=== PATIENT | male | born 1955 | race Caucasian/White ===

== ENCOUNTER 2020-03-13 16:17 | Inpatient (IN) | payer OTHER, MEDICARE, SELFPAY ==
[2020-03-13] VITALS (35 sets, daily range): BP systolic 71–162; BP diastolic 42–81; PULSE 83–136; RESP 20–37; TEMP 36.5; O2SAT 92–100; BMI 33.0
--- NOTE | 2020-03-13 16:51 | XR_ITS ---
WS: [id number] XR chest 1V portable [id number] REASON FOR EXAM: dyspnea/cough FINDINGS: The lung bobby are hyper aerated with decreased vascularity. The heart and mediastinal interfaces normal. No pneumonia, pleural effusion, pulmonary edema, or mass effect. The diaphragms are flattened. The hilum and apices normal. XR/XR chest 1V portable [id number] IMPRESSION: Chronic obstructive pulmonary disease.
--- NOTE | 2020-03-13 16:51 | ECG_ITS ---
Measurements Intervals [place] Rate: 111 P: 83 SC: 151 QRS: 58 QRSD: 89 T: 40 QT: 318 QTc: 434 SINUS TACHYCARDIA ABNORMAL RHYTHM ECG No previous ECG available for comparison Electronically Signed On 03-14-2020 19:57:41 CDT by Alexx Hobbs M.D. [email or web address]
--- NOTE | 2020-03-13 16:51 | CTR_ITS ---
PROCEDURE INFORMATION: Exam: CT Head Without Contrast Exam date and time: 03/13/2020 7:31 PM Age: 64 years old Clinical indication: Altered mental status/memory loss; Confusion or disorientation; Patient HX: PT was found catatonic - AMS TECHNIQUE: Imaging protocol: Computed tomography of the head without contrast. Radiation optimization: All CT scans at this facility use at least one of these dose optimization techniques: automated exposure control; mA and/or kV adjustment per patient size (includes targeted exams where dose is matched to clinical indication); or iterative reconstruction. COMPARISON: No relevant prior studies available. RADIATION DOSE METRICS: Total DLP: 1486.06 mGy-cm FINDINGS: Brain: Mild diffuse cortical volume loss. Mild hypodensities in supratentorial periventricular and subcortical white matter. No intracranial hemorrhage. Ventricles: Normal. No ventriculomegaly. Bones/joints: Unremarkable. No acute fracture. Sinuses: Visualized sinuses are unremarkable. No fluid levels. Mastoid air cells: Visualized mastoid air cells are well aerated. Soft tissues: Unremarkable. CT/CT head wo con* [id number] IMPRESSION: 1. No acute intracranial abnormality identified. 2. Mild microangiopathy. Radiation Dose CTDIVOL = (mGy): DLP = 1486.06 (mGy-cm)
[2020-03-13 17:23] LABS: ABG PCO2 22.1 mmHg (35-45); ABG PH Result 7.21 (7.35-7.45); Base Excess ABG -17.2 mmol/L (-2.0-2.0); Blood Gas Allen Test Pos; Blood Gas Sample Site Brachial, left; Blood Gas Sample Type Arterial; HCO3 ABG 8.9 mmol/L (22-26); HGB O2 Sat 98.3 % (95-100); Ionized Calcium Level - ABG 1.3 mmol/L (1.1-1.4); Methemoglobin 1.4 % (0.4-1.5); Oxygen Device NRB; Oxygen Saturation ABG 99.5; Potassium Level - ABG 7.1 mmol/L (3.5-5.0); Total Hemoglobin 10.1 g/dL (14-18)
[2020-03-13 17:35] LABS: Basophils % 0.1 %; Eosinophils % 0.1 %; Hematocrit 32.4 % (42.0-52.0); Hemoglobin 9.6 g/dL (11.7-16.6); Lymphocytes # 0.3 10^3/uL (0.8-4.8); Lymphocytes % 1.7 %; Mean Corpuscular HGB Conc 29.6 g/dL (30.0-36.0); Mean Corpuscular Hemoglobin 27.7 pg (28.0-34.0); Mean Corpuscular Volume 93.4 fL (80-94); Mean Platelet Volume 9.9 fL (7.4-10.4); Monocytes # 1.3 10^3/uL (0.2-0.9); Monocytes % 8.3 %; Neutrophils # 14.5 10^3/uL (1.8-7.7); Neutrophils % 89.4 %; Nucleated Red Blood Cells % 0 %; Platelet Count 290 10^3/cmm (130-400); Red Blood Count 3.47 10^6/uL (4.1-5.3); White Blood Count 16.2 10^3/uL (4.0-10.0)
--- NOTE | 2020-03-13 17:38 | ED_ITS ---
Documented by User: Ross Glez DO 03/15/20 16:05 HPI - Altered Mental Status General: Chief Complaint: Altered Mental Status Stated Complaint: AMS Time Seen by Provider: 03/13/20 16:50 History of Present Illness: HPI narrative: 84-year-old male brought in via EMS. The only history were able to get was that he they were called after the landlord had not seen him since March for there is a foul odor from his room if they had been called for health and welfare check on their arrival he was in a computer chair slumped over he was able to verbalize a little bit but with obviously had altered mental status. On arrival here he is following simple commands but cannot verbalize anything to me. He is incredibly dirty he has fecal matter dried on the back of his legs down his legs are a socks in place that are caked in blood fecal matter in hair these were removed by amarilis underneath the socks or bandages underlying the bandages are large numbers of maggots on both feet. He is not able to supply any history and there is no history available on his old records either in [facility] or in the old [facility] complaint: altered mental status, confusion and decreased responsiveness Onset (ago): day(s) (5) Severity: severe Consistency of symptoms: Getting Worse Review of Systems General: Reports: ROS unobtainable due to medical condition and ROS unobtainable due to mental status [facility] ED PFSH: Medical History Former smoker Hernia Nephrolithiasis Pilonidal cyst Sepsis Urolithiasis Left-sided with microscopic hematuria 9 mm Surgical History H/O cystoscopy History of ureter stent After failing medical management Stent placement in 10/10 Family History Other Hypertension Social History Smoking and tobacco status: former smoker Alcohol intake: former Substance/Drug Use: never Lives independently: Yes Household members: other Details: Lives alone, was taking computer repair classes at [facility] [employer] [facility] Marital status: / Physical Exam Const: EXAM LIMITATIONS: altered mental status GENERAL APPEARANCE: disheveled, ill appearing, frail appearing, appears older than stated age, grossly edematous and other (Patient smells very strongly of feces and necrotic tissue) NUTRITIONAL APPEARANCE: obese ORIENTATION/CONSCIOUSNESS: Yes obtunded; not oriented to person, not oriented to place and not oriented to time HENMT: COMMON NORMALS: normocephalic, head/scalp atraumatic, hearing grossly normal bilaterally and external ears normal HEAD & SCALP: normocephalic and atraumatic EXTERNAL EAR: Yes external ears normal Neck/C-Spine: COMMON NORMALS: full ROM, no lymphadenopathy, supple and no JVD Resp: COMMON NORMALS: normal respiratory effort, no retractions, no use of accessory muscles and clear to auscultation bilaterally AUSCULTATION: clear to auscultation bilaterally Cardio: COMMON NORMALS: no JVD, regular rate, regular rhythm and no murmurs RATE: regular rate RHYTHM: regular rhythm GI: COMMON NORMALS: soft to palpation and no hepatosplenomegaly AUSCULTA TION: Yes normoactive bowel sounds PALPATION: Yes soft, No tender, No guarding and Yes no hepatosplenomegaly Neuro: SENSORIUM/ORIENTATION: No oriented to person, No oriented to place and No oriented to time Course Vital Signs: Vital signs: Vital Signs Temperature 97.4 F L 03/15/20 08:00 Pulse Rate 85 03/15/20 14:00 Respiratory Rate 28 H 03/15/20 14:00 Blood Pressure 110/48 03/15/20 14:00 Pulse Oximetry 94 03/15/20 07:30 MDM - Altered Mental Status MDM Narrative: Medical decision making narrative: Patient very difficult to assess initially on arrival he is essentially nonverbal he does follow simple commands and was cutting his socks off he did lift his feet up when asked. 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 Initial cultures and fluid resuscitation have been done initial sepsis antibiotic started labs in imaging are pending. Care turned over to Dr. Bailey at change of shift Lab Data: Labs: Lab Results 03/13/20 03/13/20 03/13/20 Range/Units 17:12 17:19 17:19 WBC 16.2 H (4.0-10.0) 10^3/ uL RBC 3.47 L (4.1-5.3) 10^6/u L Hgb 9.6 L (11.7-16.6) g/dL Hct 32.4 L (42.0-52.0) % MCV 93.4 (80-94) fL MCH 27.7 L (28.0-34.0) pg MCHC 29.6 L (30.0-36.0) g/dL RDW 15.0 (12.1-15.1) % Plt Count 290 (130-400) 10^3/c mm MPV 9.9 (7.4-10.4) fL Neut % (Auto) 89.4 % Lymph % (Auto) 1.7 % Upton % (Auto) 8.3 % Eos % (Auto) 0.1 % Baso % (Auto) 0.1 % Reticulocyte % (Au to) % Neut # (Auto) 14.5 H (1.8-7.7) 10^3/u L Lymph # (Auto) 0.3 L (0.8-4.8) 10^3/u L Upton # (Auto) 1.3 H (0.2-0.9) 10^3/u L Eos # (Auto) 0.0 (0.0-0.8) 10^3/u L Baso # (Auto) 0.0 (0.0-0.1) 10^3/u L Nucleated RBC % (a uto) 0 % Nucleated RBCs # 0.0 /100WBC PT 17.80 H (10.5-13.3) SECO NDS INR 1.42 H (0.8-1.2) APTT 37.3 H (23.9-36.7) SECO NDS Specimen Type Arterial Sample Site Brachial, left ABG pH 7.21 L (7.35-7.45) ABG pCO2 22.1 L (35-45) mmHg ABG pO2 308.0 H* (80.0-100.0) mmH g ABG HCO3 8.9 L (22-26) mmol/L ABG O2 Saturation 99.5 ABG Base Excess -17.2 L (-2.0-2.0) mmol/ L Siddhartha Test Pos Hematocrit 31.0 L (42-52) % Hgb O2 Saturation 98.3 (95-100) % Methemoglobin 1.4 (0.4-1.5) % Total Hemoglobin 10.1 L (14-18) g/dL Sodium 151.0 H (131-143) mmol/L Potassium 7.1 H (3.5-5.0) mmol/L Glucose 151.0 H (70-115) mg/dL Ionized Calcium 1.3 (1.1-1.4) mmol/L O2 Delivery Device Nrb O2 Liters/Min 14.0 % Physiotherapy Assistant ID cak Chloride (98-107) mmol/L Carbon Dioxide (22-29) mmol/L Anion Gap (5-19) BUN (8-23) mg/dL Creatinine (0.7-1.2) mg/dL GFR Calculation (90-130) mL/min POC Glucose (70-110) mg/dL Calculated Osmolal ity (285-295) mOsm/k g Lactate (0.5-2.2) mmol/L Calcium (8.5-10.5) mg/dL Total Bilirubin (0.15-1.2) mg/dL AST (0-40) U/L ALT (0-41) U/L Alkaline Phosphata se (40-130) IU/L Creatine Kinase (39-308) U/L NT-Pro-B Natriuret Pep (0-125) pg/mL Total Protein (6.6-8.7) g/dL Albumin (3.5-5.2) g/dL Globulin (1.3-4.6) g/dL Lipase (13-60) U/L Folate (4.5-32.2) ng/mL TSH (0.27-4.20) uIU/ mL Urine Color (Yellow) Urine Appearance (CLEAR) Urine pH (5-7) Ur Specific Gravit y (1.005-1.030) Urine Protein (Negative) Urine Glucose (UA) (Normal) Urine Ketones (Negative) Urine Blood (Negative) Urine Nitrate (Negative) Urine Bilirubin (NEGATIVE) Urine Urobilinogen (Negative) mg/dL Ur Leukocyte Agustina ase (Negative) Urine RBC (0-2) /hpf Urine WBC (0-5) /hpf Ur Squamous Epith Cells (0-5) Amorphous Sediment Urine Bacteria (NONE) Urine Mucus Ur Random Sodium mmol/L Urine Creatinine (39-259) mg/dL Hep Bs Antigen (Nonreactive) Hep Bs Antibody (0-8.5) Hepatitis C Antibo dy (Nonreactive) 03/13/20 03/13/20 03/13/20 Range/Units 17:19 17:19 17:19 WBC (4.0-10.0) 10^3/ uL RBC (4.1-5.3) 10^6/u L Hgb (11.7-16.6) g/dL Hct (42.0-52.0) % MCV (80-94) fL MCH (28.0-34.0) pg MCHC (30.0-36.0) g/dL RDW (12.1-15.1) % Plt Count (130-400) 10^3/c mm MPV (7.4-10.4) fL Neut % (Auto) % Lymph % (Auto) % Upton % (Auto) % Eos % (Auto) % Baso % (Auto) % Reticulocyte % (Au to) % Neut # (Auto) (1.8-7.7) 10^3/u L Lymph # (Auto) (0.8-4.8) 10^3/u L Upton # (Auto) (0.2-0.9) 10^3/u L Eos # (Auto) (0.0-0.8) 10^3/u L Baso # (Auto) (0.0-0.1) 10^3/u L Nucleated RBC % (a uto) % Nucleated RBCs # /100WBC PT (10.5-13.3) SECO NDS INR (0.8-1.2) APTT (23.9-36.7) SECO NDS Specimen Type Sample Site ABG pH (7.35-7.45) ABG pCO2 (35-45) mmHg ABG pO2 (80.0-100.0) mmH g ABG HCO3 (22-26) mmol/L ABG O2 Saturation ABG Base Excess (-2.0-2.0) mmol/ L Siddhartha Test Hematocrit (42-52) % Hgb O2 Saturation (95-100) % Methemoglobin (0.4-1.5) % Total Hemoglobin (14-18) g/dL Sodium 148 H Cancelled (131-143) mmol/L Potassium 7.3 H* Cancelled (3.5-5.0) mmol/L Glucose 151 H Cancelled (70-115) mg/dL Ionized Calcium (1.1-1.4) mmol/L O2 Delivery Device O2 Liters/Min % Physiotherapy Assistant ID Chloride 106 Cancelled (98-107) mmol/L Carbon Dioxide 12 L Cancelled (22-29) mmol/L Anion Gap 37.3 H Cancelled (5-19) BUN 268 H* Cancelled (8-23) mg/dL Creatinine 19.8 H* Cancelled (0.7-1.2) mg/dL GFR Calculation 2.4 L Cancelled (90-130) mL/min POC Glucose (70-110) mg/dL Calculated Osmolal ity 319 H Cancelled (285-295) mOsm/k g Lactate 2.0 (0.5-2.2) mmol/L Calcium 10.8 H Cancelled (8.5-10.5) mg/dL Total Bilirubin 0.4 (0.15-1.2) mg/dL AST 21 (0-40) U/L ALT 18 (0-41) U/L Alkaline Phosphata se 124 (40-130) IU/L Creatine Kinase 444 H* (39-308) U/L NT-Pro-B Natriuret Pep 559 H (0-125) pg/mL Total Protein 8.7 (6.6-8.7) g/dL Albumin 3.8 (3.5-5.2) g/dL Globulin 4.9 H (1.3-4.6) g/dL Lipase 274 H (13-60) U/L Folate (4.5-32.2) ng/mL TSH 0.61 (0.27-4.20) uIU/ mL Urine Color (Yellow) Urine Appearance (CLEAR) Urine pH (5-7) Ur Specific Gravit y (1.005-1.030) Urine Protein (Negative) Urine Glucose (UA) (Normal) Urine Ketones (Negative) Urine Blood (Negative) Urine Nitrate (Negative) Urine Bilirubin (NEGATIVE) Urine Urobilinogen (Negative) mg/dL Ur Leukocyte Agustina ase (Negative) Urine RBC (0-2) /hpf Urine WBC (0-5) /hpf Ur Squamous Epith Cells (0-5) Amorphous Sediment Urine Bacteria (NONE) Urine Mucus Ur Random Sodium mmol/L Urine Creatinine (39-259) mg/dL Hep Bs Antigen (Nonreactive) Hep Bs Antibody (0-8.5) Hepatitis C Antibo dy (Nonreactive) 03/13/20 03/13/20 03/13/20 Range/Units 17:19 17:19 17:19 WBC (4.0-10.0) 10^3/ uL RBC (4.1-5.3) 10^6/u L Hgb (11.7-16.6) g/dL Hct (42.0-52.0) % MCV (80-94) fL MCH (28.0-34.0) pg MCHC (30.0-36.0) g/dL RDW (12.1-15.1) % Plt Count (130-400) 10^3/c mm MPV (7.4-10.4) fL Neut % (Auto) % Lymph % (Auto) % Upton % (Auto) % Eos % (Auto) % Baso % (Auto) % Reticulocyte % (Au to) 0.8000 % Neut # (Auto) (1.8-7.7) 10^3/u L Lymph # (Auto) (0.8-4.8) 10^3/u L Upton # (Auto) (0.2-0.9) 10^3/u L Eos # (Auto) (0.0-0.8) 10^3/u L Baso # (Auto) (0.0-0.1) 10^3/u L Nucleated RBC % (a uto) % Nucleated RBCs # /100WBC PT (10.5-13.3) SECO NDS INR (0.8-1.2) APTT (23.9-36.7) SECO NDS Specimen Type Sample Site ABG pH (7.35-7.45) ABG pCO2 (35-45) mmHg ABG pO2 (80.0-100.0) mmH g ABG HCO3 (22-26) mmol/L ABG O2 Saturation ABG Base Excess (-2.0-2.0) mmol/ L Siddhartha Test Hematocrit (42-52) % Hgb O2 Saturation (95-100) % Methemoglobin (0.4-1.5) % Total Hemoglobin (14-18) g/dL Sodium (131-143) mmol/L Potassium (3.5-5.0) mmol/L Glucose (70-115) mg/dL Ionized Calcium (1.1-1.4) mmol/L O2 Delivery Device O2 Liters/Min % Physiotherapy Assistant ID Chloride (98-107) mmol/L Carbon Dioxide (22-29) mmol/L Anion Gap (5-19) BUN (8-23) mg/dL Creatinine (0.7-1.2) mg/dL GFR Calculation (90-130) mL/min POC Glucose (70-110) mg/dL Calculated Osmolal ity (285-295) mOsm/k g Lactate (0.5-2.2) mmol/L Calcium (8.5-10.5) mg/dL Total Bilirubin (0.15-1.2) mg/dL AST (0-40) U/L ALT (0-41) U/L Alkaline Phosphata se (40-130) IU/L Creatine Kinase (39-308) U/L NT-Pro-B Natriuret Pep (0-125) pg/mL Total Protein (6.6-8.7) g/dL Albumin (3.5-5.2) g/dL Globulin (1.3-4.6) g/dL Lipase (13-60) U/L Folate 10.3 (4.5-32.2) ng/mL TSH (0.27-4.20) uIU/ mL Urine Color (Yellow) Urine Appearance (CLEAR) Urine pH (5-7) Ur Specific Gravit y (1.005-1.030) Urine Protein (Negative) Urine Glucose (UA) (Normal) Urine Ketones (Negative) Urine Blood (Negative) Urine Nitrate (Negative) Urine Bilirubin (NEGATIVE) Urine Urobilinogen (Negative) mg/dL Ur Leukocyte Agustina ase (Negative) Urine RBC (0-2) /hpf Urine WBC (0-5) /hpf Ur Squamous Epith Cells (0-5) Amorphous Sediment Urine Bacteria (NONE) Urine Mucus Ur Random Sodium mmol/L Urine Creatinine (39-259) mg/dL Hep Bs Antigen (Nonreactive) Hep Bs Antibody (0-8.5) Hepatitis C Antibo dy Non-reactive (Nonreactive) 03/13/20 03/13/20 03/13/20 Range/Units 17:19 17:48 17:48 WBC (4.0-10.0) 10^3/ uL RBC (4.1-5.3) 10^6/u L Hgb (11.7-16.6) g/dL Hct (42.0-52.0) % MCV (80-94) fL MCH (28.0-34.0) pg MCHC (30.0-36.0) g/dL RDW (12.1-15.1) % Plt Count (130-400) 10^3/c mm MPV (7.4-10.4) fL Neut % (Auto) % Lymph % (Auto) % Upton % (Auto) % Eos % (Auto) % Baso % (Auto) % Reticulocyte % (Au to) % Neut # (Auto) (1.8-7.7) 10^3/u L Lymph # (Auto) (0.8-4.8) 10^3/u L Upton # (Auto) (0.2-0.9) 10^3/u L Eos # (Auto) (0.0-0.8) 10^3/u L Baso # (Auto) (0.0-0.1) 10^3/u L Nucleated RBC % (a uto) % Nucleated RBCs # /100WBC PT (10.5-13.3) SECO NDS INR (0.8-1.2) APTT (23.9-36.7) SECO NDS Specimen Type Sample Site ABG pH (7.35-7.45) ABG pCO2 (35-45) mmHg ABG pO2 (80.0-100.0) mmH g ABG HCO3 (22-26) mmol/L ABG O2 Saturation ABG Base Excess (-2.0-2.0) mmol/ L Siddhartha Test Hematocrit (42-52) % Hgb O2 Saturation (95-100) % Methemoglobin (0.4-1.5) % Total Hemoglobin (14-18) g/dL Sodium (131-143) mmol/L Potassium (3.5-5.0) mmol/L Glucose (70-115) mg/dL Ionized Calcium (1.1-1.4) mmol/L O2 Delivery Device O2 Liters/Min % Physiotherapy Assistant ID Chloride (98-107) mmol/L Carbon Dioxide (22-29) mmol/L Anion Gap (5-19) BUN (8-23) mg/dL Creatinine (0.7-1.2) mg/dL GFR Calculation (90-130) mL/min POC Glucose (70-110) mg/dL Calculated Osmolal ity (285-295) mOsm/k g Lactate (0.5-2.2) mmol/L Calcium (8.5-10.5) mg/dL Total Bilirubin (0.15-1.2) mg/dL AST (0-40) U/L ALT (0-41) U/L Alkaline Phosphata se (40-130) IU/L Creatine Kinase (39-308) U/L NT-Pro-B Natriuret Pep (0-125) pg/mL Total Protein (6.6-8.7) g/dL Albumin (3.5-5.2) g/dL Globulin (1.3-4.6) g/dL Lipase (13-60) U/L Folate (4.5-32.2) ng/mL TSH (0.27-4.20) uIU/ mL Urine Color Dark yellow (Yellow) Urine Appearance Sl cloudy A (CLEAR) Urine pH 5 (5-7) Ur Specific Gravit y 1.025 (1.005-1.030) Urine Protein Neg (Negative) Urine Glucose (UA) Norm (Normal) Urine Ketones Negative (Negative) Urine Blood 3+ H (Negative) Urine Nitrate Negative (Negative) Urine Bilirubin 1+ H (NEGATIVE) Urine Urobilinogen Norm (Negative) mg/dL Ur Leukocyte Agustina ase Negative (Negative) Urine RBC 50-80 H (0-2) /hpf Urine WBC 0-4 H (0-5) /hpf Ur Squamous Epith Cells 0-4 H (0-5) Amorphous Sediment 1+ Urine Bacteria 1+ H (NONE) Urine Mucus Trace Ur Random Sodium 11 mmol/L Urine Creatinine 407 H (39-259) mg/dL Hep Bs Antigen Non-reactive (Nonreactive) Hep Bs Antibody 3.5 (0-8.5) Hepatitis C Antibo dy (Nonreactive) 03/13/20 Range/Units 20:28 WBC (4.0-10.0) 10^3/ uL RBC (4.1-5.3) 10^6/u L Hgb (11.7-16.6) g/dL Hct (42.0-52.0) % MCV (80-94) fL MCH (28.0-34.0) pg MCHC (30.0-36.0) g/dL RDW (12.1-15.1) % Plt Count (130-400) 10^3/c mm MPV (7.4-10.4) fL Neut % (Auto) % Lymph % (Auto) % Upton % (Auto) % Eos % (Auto) % Baso % (Auto) % Reticulocyte % (Au to) % Neut # (Auto) (1.8-7.7) 10^3/u L Lymph # (Auto) (0.8-4.8) 10^3/u L Upton # (Auto) (0.2-0.9) 10^3/u L Eos # (Auto) (0.0-0.8) 10^3/u L Baso # (Auto) (0.0-0.1) 10^3/u L Nucleated RBC % (a uto) % Nucleated RBCs # /100WBC PT (10.5-13.3) SECO NDS INR (0.8-1.2) APTT (23.9-36.7) SECO NDS Specimen Type Sample Site ABG pH (7.35-7.45) ABG pCO2 (35-45) mmHg ABG pO2 (80.0-100.0) mmH g ABG HCO3 (22-26) mmol/L ABG O2 Saturation ABG Base Excess (-2.0-2.0) mmol/ L Siddhartha Test Hematocrit (42-52) % Hgb O2 Saturation (95-100) % Methemoglobin (0.4-1.5) % Total Hemoglobin (14-18) g/dL Sodium (131-143) mmol/L Potassium (3.5-5.0) mmol/L Glucose (70-115) mg/dL Ionized Calcium (1.1-1.4) mmol/L O2 Delivery Device O2 Liters/Min % Physiotherapy Assistant ID Chloride (98-107) mmol/L Carbon Dioxide (22-29) mmol/L Anion Gap (5-19) BUN (8-23) mg/dL Creatinine (0.7-1.2) mg/dL GFR Calculation (90-130) mL/min POC Glucose 238 (70-110) mg/dL Calculated Osmolal ity (285-295) mOsm/k g Lactate (0.5-2.2) mmol/L Calcium (8.5-10.5) mg/dL Total Bilirubin (0.15-1.2) mg/dL AST (0-40) U/L ALT (0-41) U/L Alkaline Phosphata se (40-130) IU/L Creatine Kinase (39-308) U/L NT-Pro-B Natriuret Pep (0-125) pg/mL Total Protein (6.6-8.7) g/dL Albumin (3.5-5.2) g/dL Globulin (1.3-4.6) g/dL Lipase (13-60) U/L Folate (4.5-32.2) ng/mL TSH (0.27-4.20) uIU/ mL Urine Color (Yellow) Urine Appearance (CLEAR) Urine pH (5-7) Ur Specific Gravit y (1.005-1.030) Urine Protein (Negative) Urine Glucose (UA) (Normal) Urine Ketones (Negative) Urine Blood (Negative) Urine Nitrate (Negative) Urine Bilirubin (NEGATIVE) Urine Urobilinogen (Negative) mg/dL Ur Leukocyte Agustina ase (Negative) Urine RBC (0-2) /hpf Urine WBC (0-5) /hpf Ur Squamous Epith Cells (0-5) Amorphous Sediment Urine Bacteria (NONE) Urine Mucus Ur Random Sodium mmol/L Urine Creatinine (39-259) mg/dL Hep Bs Antigen (Nonreactive) Hep Bs Antibody (0-8.5) Hepatitis C Antibo dy (Nonreactive) Discharge Plan Discharge Patient Disposition: Admitted As Inpatient Admit Provider: Hugo Shi Clinical Impression: Sepsis Qualifiers: Sepsis type: sepsis due to unspecified organism Sepsis acute organ dysfunction status: with acute organ dysfunction Severe sepsis acute organ dysfunction type: acute renal failure Acute renal failure type: unspecified Severe sepsis shock status: with septic shock Qualified Code(s): A41.9 - Sepsis, unspecified organism Condition: Stable Discharge Date/Time: 03/13/20 23:54 Coding Level of Care Code ED Tobacco Prizer for Chg Fwd Exam Detailed Documented by User: Benton Bailey DO 03/14/20 01:11 HPI - Altered Mental Status General: Chief Complaint: Altered Mental Status Stated Complaint: AMS Time Seen by Provider: 03/13/20 16:50 PFSH ED PFSH: Medical History Former smoker Hernia Nephrolithiasis Pilonidal cyst Sepsis Urolithiasis Left-sided with microscopic hematuria 9 mm Surgical History H/O cystoscopy History of ureter stent After failing medical management Stent placement in 10/10 Family History Other Hypertension Social History Smoking and tobacco status: former smoker Alcohol intake: former Substance/Drug Use: never Lives independently: Yes Household members: other Details: Lives alone, was taking computer repair classes at [employer] [facility] [employer] [facility] Marital status: / Course Vital Signs: Vital signs: Vital Signs Temperature 97.4 F L 03/15/20 08:00 Pulse Rate 85 03/15/20 14:00 Respiratory Rate 28 H 03/15/20 14:00 Blood Pressure 110/48 03/15/20 14:00 Pulse Oximetry 94 03/15/20 07:30 MDM - Altered Mental Status MDM Narrative: Medical decision making narrative: 64-year-old gentleman with mental status change, and acute sepsis with shock. His hemoglobin is 9.6. White blood cell count 16.2. Lactic acid is mildly elevated. He is in acute renal failure with a BUN of 248, and a creatinine of 18. His sodium is 151, his bicarbonate level is 13. His pH is 7.2. He received 30 mL per kilogram bolus of normal saline for sepsis. He remained mildly hypotensive despite this, but blood pressures, and mental status did improve. He got carbonate as well for metabolic acidosis. He received insulin, glucose, albuterol, calcium gluconate for hyperkalemia of 6.1. He did not have EKG changes associated with hyperkalemia. He is too hypotensive for emergent dialysis, although nephrology was consulted and saw the patient via telemedicine in the ER. CT of the head was negative. CT of the pelvis shows some reactive lymph nodes. It he appears to have a left basilar pneumonia as well. He is received vancomycin, Cipro, and Zosyn in the ER. Hospitalist is seen the patient in the ER. Lab Data: Labs: Lab Results 03/13/20 03/13/20 03/13/20 Range/Units 17:12 17:19 17:19 WBC 16.2 H (4.0-10.0) 10^3/ uL RBC 3.47 L (4.1-5.3) 10^6/u L Hgb 9.6 L (11.7-16.6) g/dL Hct 32.4 L (42.0-52.0) % MCV 93.4 (80-94) fL MCH 27.7 L (28.0-34.0) pg MCHC 29.6 L (30.0-36.0) g/dL RDW 15.0 (12.1-15.1) % Plt Count 290 (130-400) 10^3/c mm MPV 9.9 (7.4-10.4) fL Neut % (Auto) 89.4 % Lymph % (Auto) 1.7 % Upton % (Auto) 8.3 % Eos % (Auto) 0.1 % Baso % (Auto) 0.1 % Reticulocyte % (Au to) % Neut # (Auto) 14.5 H (1.8-7.7) 10^3/u L Lymph # (Auto) 0.3 L (0.8-4.8) 10^3/u L Upton # (Auto) 1.3 H (0.2-0.9) 10^3/u L Eos # (Auto) 0.0 (0.0-0.8) 10^3/u L Baso # (Auto) 0.0 (0.0-0.1) 10^3/u L Nucleated RBC % (a uto) 0 % Nucleated RBCs # 0.0 /100WBC PT 17.80 H (10.5-13.3) SECO NDS INR 1.42 H (0.8-1.2) APTT 37.3 H (23.9-36.7) SECO NDS Specimen Type Arterial Sample Site Brachial, left ABG pH 7.21 L (7.35-7.45) ABG pCO2 22.1 L (35-45) mmHg ABG pO2 308.0 H* (80.0-100.0) mmH g ABG HCO3 8.9 L (22-26) mmol/L ABG O2 Saturation 99.5 ABG Base Excess -17.2 L (-2.0-2.0) mmol/ L Siddhartha Test Pos Hematocrit 31.0 L (42-52) % Hgb O2 Saturation 98.3 (95-100) % Methemoglobin 1.4 (0.4-1.5) % Total Hemoglobin 10.1 L (14-18) g/dL Sodium 151.0 H (131-143) mmol/L Potassium 7.1 H (3.5-5.0) mmol/L Glucose 151.0 H (70-115) mg/dL Ionized Calcium 1.3 (1.1-1.4) mmol/L O2 Delivery Device Nrb O2 Liters/Min 14.0 % Physiotherapy Assistant ID cak Chloride (98-107) mmol/L Carbon Dioxide (22-29) mmol/L Anion Gap (5-19) BUN (8-23) mg/dL Creatinine (0.7-1.2) mg/dL GFR Calculation (90-130) mL/min POC Glucose (70-110) mg/dL Calculated Osmolal ity (285-295) mOsm/k g Lactate (0.5-2.2) mmol/L Calcium (8.5-10.5) mg/dL Total Bilirubin (0.15-1.2) mg/dL AST (0-40) U/L ALT (0-41) U/L Alkaline Phosphata se (40-130) IU/L Creatine Kinase (39-308) U/L NT-Pro-B Natriuret Pep (0-125) pg/mL Total Protein (6.6-8.7) g/dL Albumin (3.5-5.2) g/dL Globulin (1.3-4.6) g/dL Lipase (13-60) U/L Folate (4.5-32.2) ng/mL TSH (0.27-4.20) uIU/ mL Urine Color (Yellow) Urine Appearance (CLEAR) Urine pH (5-7) Ur Specific Gravit y (1.005-1.030) Urine Protein (Negative) Urine Glucose (UA) (Normal) Urine Ketones (Negative) Urine Blood (Negative) Urine Nitrate (Negative) Urine Bilirubin (NEGATIVE) Urine Urobilinogen (Negative) mg/dL Ur Leukocyte Agustina ase (Negative) Urine RBC (0-2) /hpf Urine WBC (0-5) /hpf Ur Squamous Epith Cells (0-5) Amorphous Sediment Urine Bacteria (NONE) Urine Mucus Ur Random Sodium mmol/L Urine Creatinine (39-259) mg/dL Hep Bs Antigen (Nonreactive) Hep Bs Antibody (0-8.5) Hepatitis C Antibo dy (Nonreactive) 03/13/20 03/13/20 03/13/20 Range/Units 17:19 17:19 17:19 WBC (4.0-10.0) 10^3/ uL RBC (4.1-5.3) 10^6/u L Hgb (11.7-16.6) g/dL Hct (42.0-52.0) % MCV (80-94) fL MCH (28.0-34.0) pg MCHC (30.0-36.0) g/dL RDW (12.1-15.1) % Plt Count (130-400) 10^3/c mm MPV (7.4-10.4) fL Neut % (Auto) % Lymph % (Auto) % Upton % (Auto) % Eos % (Auto) % Baso % (Auto) % Reticulocyte % (Au to) % Neut # (Auto) (1.8-7.7) 10^3/u L Lymph # (Auto) (0.8-4.8) 10^3/u L Upton # (Auto) (0.2-0.9) 10^3/u L Eos # (Auto) (0.0-0.8) 10^3/u L Baso # (Auto) (0.0-0.1) 10^3/u L Nucleated RBC % (a uto) % Nucleated RBCs # /100WBC PT (10.5-13.3) SECO NDS INR (0.8-1.2) APTT (23.9-36.7) SECO NDS Specimen Type Sample Site ABG pH (7.35-7.45) ABG pCO2 (35-45) mmHg ABG pO2 (80.0-100.0) mmH g ABG HCO3 (22-26) mmol/L ABG O2 Saturation ABG Base Excess (-2.0-2.0) mmol/ L Siddhartha Test Hematocrit (42-52) % Hgb O2 Saturation (95-100) % Methemoglobin (0.4-1.5) % Total Hemoglobin (14-18) g/dL Sodium 148 H Cancelled (131-143) mmol/L Potassium 7.3 H* Cancelled (3.5-5.0) mmol/L Glucose 151 H Cancelled (70-115) mg/dL Ionized Calcium (1.1-1.4) mmol/L O2 Delivery Device O2 Liters/Min % Physiotherapy Assistant ID Chloride 106 Cancelled (98-107) mmol/L Carbon Dioxide 12 L Cancelled (22-29) mmol/L Anion Gap 37.3 H Cancelled (5-19) BUN 268 H* Cancelled (8-23) mg/dL Creatinine 19.8 H* Cancelled (0.7-1.2) mg/dL GFR Calculation 2.4 L Cancelled (90-130) mL/min POC Glucose (70-110) mg/dL Calculated Osmolal ity 319 H Cancelled (285-295) mOsm/k g Lactate 2.0 (0.5-2.2) mmol/L Calcium 10.8 H Cancelled (8.5-10.5) mg/dL Total Bilirubin 0.4 (0.15-1.2) mg/dL AST 21 (0-40) U/L ALT 18 (0-41) U/L Alkaline Phosphata se 124 (40-130) IU/L Creatine Kinase 444 H* (39-308) U/L NT-Pro-B Natriuret Pep 559 H (0-125) pg/mL Total Protein 8.7 (6.6-8.7) g/dL Albumin 3.8 (3.5-5.2) g/dL Globulin 4.9 H (1.3-4.6) g/dL Lipase 274 H (13-60) U/L Folate (4.5-32.2) ng/mL TSH 0.61 (0.27-4.20) uIU/ mL Urine Color (Yellow) Urine Appearance (CLEAR) Urine pH (5-7) Ur Specific Gravit y (1.005-1.030) Urine Protein (Negative) Urine Glucose (UA) (Normal) Urine Ketones (Negative) Urine Blood (Negative) Urine Nitrate (Negative) Urine Bilirubin (NEGATIVE) Urine Urobilinogen (Negative) mg/dL Ur Leukocyte Agustina ase (Negative) Urine RBC (0-2) /hpf Urine WBC (0-5) /hpf Ur Squamous Epith Cells (0-5) Amorphous Sediment Urine Bacteria (NONE) Urine Mucus Ur Random Sodium mmol/L Urine Creatinine (39-259) mg/dL Hep Bs Antigen (Nonreactive) Hep Bs Antibody (0-8.5) Hepatitis C Antibo dy (Nonreactive) 03/13/20 03/13/20 03/13/20 Range/Units 17:19 17:19 17:19 WBC (4.0-10.0) 10^3/ uL RBC (4.1-5.3) 10^6/u L Hgb (11.7-16.6) g/dL Hct (42.0-52.0) % MCV (80-94) fL MCH (28.0-34.0) pg MCHC (30.0-36.0) g/dL RDW (12.1-15.1) % Plt Count (130-400) 10^3/c mm MPV (7.4-10.4) fL Neut % (Auto) % Lymph % (Auto) % Upton % (Auto) % Eos % (Auto) % Baso % (Auto) % Reticulocyte % (Au to) 0.8000 % Neut # (Auto) (1.8-7.7) 10^3/u L Lymph # (Auto) (0.8-4.8) 10^3/u L Upton # (Auto) (0.2-0.9) 10^3/u L Eos # (Auto) (0.0-0.8) 10^3/u L Baso # (Auto) (0.0-0.1) 10^3/u L Nucleated RBC % (a uto) % Nucleated RBCs # /100WBC PT (10.5-13.3) SECO NDS INR (0.8-1.2) APTT (23.9-36.7) SECO NDS Specimen Type Sample Site ABG pH (7.35-7.45) ABG pCO2 (35-45) mmHg ABG pO2 (80.0-100.0) mmH g ABG HCO3 (22-26) mmol/L ABG O2 Saturation ABG Base Excess (-2.0-2.0) mmol/ L Siddhartha Test Hematocrit (42-52) % Hgb O2 Saturation (95-100) % Methemoglobin (0.4-1.5) % Total Hemoglobin (14-18) g/dL Sodium (131-143) mmol/L Potassium (3.5-5.0) mmol/L Glucose (70-115) mg/dL Ionized Calcium (1.1-1.4) mmol/L O2 Delivery Device O2 Liters/Min % Physiotherapy Assistant ID Chloride (98-107) mmol/L Carbon Dioxide (22-29) mmol/L Anion Gap (5-19) BUN (8-23) mg/dL Creatinine (0.7-1.2) mg/dL GFR Calculation (90-130) mL/min POC Glucose (70-110) mg/dL Calculated Osmolal ity (285-295) mOsm/k g Lactate (0.5-2.2) mmol/L Calcium (8.5-10.5) mg/dL Total Bilirubin (0.15-1.2) mg/dL AST (0-40) U/L ALT (0-41) U/L Alkaline Phosphata se (40-130) IU/L Creatine Kinase (39-308) U/L NT-Pro-B Natriuret Pep (0-125) pg/mL Total Protein (6.6-8.7) g/dL Albumin (3.5-5.2) g/dL Globulin (1.3-4.6) g/dL Lipase (13-60) U/L Folate 10.3 (4.5-32.2) ng/mL TSH (0.27-4.20) uIU/ mL Urine Color (Yellow) Urine Appearance (CLEAR) Urine pH (5-7) Ur Specific Gravit y (1.005-1.030) Urine Protein (Negative) Urine Glucose (UA) (Normal) Urine Ketones (Negative) Urine Blood (Negative) Urine Nitrate (Negative) Urine Bilirubin (NEGATIVE) Urine Urobilinogen (Negative) mg/dL Ur Leukocyte Agustina ase (Negative) Urine RBC (0-2) /hpf Urine WBC (0-5) /hpf Ur Squamous Epith Cells (0-5) Amorphous Sediment Urine Bacteria (NONE) Urine Mucus Ur Random Sodium mmol/L Urine Creatinine (39-259) mg/dL Hep Bs Antigen (Nonreactive) Hep Bs Antibody (0-8.5) Hepatitis C Antibo dy Non-reactive (Nonreactive) 03/13/20 03/13/20 03/13/20 Range/Units 17:19 17:48 17:48 WBC (4.0-10.0) 10^3/ uL RBC (4.1-5.3) 10^6/u L Hgb (11.7-16.6) g/dL Hct (42.0-52.0) % MCV (80-94) fL MCH (28.0-34.0) pg MCHC (30.0-36.0) g/dL RDW (12.1-15.1) % Plt Count (130-400) 10^3/c mm MPV (7.4-10.4) fL Neut % (Auto) % Lymph % (Auto) % Upton % (Auto) % Eos % (Auto) % Baso % (Auto) % Reticulocyte % (Au to) % Neut # (Auto) (1.8-7.7) 10^3/u L Lymph # (Auto) (0.8-4.8) 10^3/u L Upton # (Auto) (0.2-0.9) 10^3/u L Eos # (Auto) (0.0-0.8) 10^3/u L Baso # (Auto) (0.0-0.1) 10^3/u L Nucleated RBC % (a uto) % Nucleated RBCs # /100WBC PT (10.5-13.3) SECO NDS INR (0.8-1.2) APTT (23.9-36.7) SECO NDS Specimen Type Sample Site ABG pH (7.35-7.45) ABG pCO2 (35-45) mmHg ABG pO2 (80.0-100.0) mmH g ABG HCO3 (22-26) mmol/L ABG O2 Saturation ABG Base Excess (-2.0-2.0) mmol/ L Siddhartha Test Hematocrit (42-52) % Hgb O2 Saturation (95-100) % Methemoglobin (0.4-1.5) % Total Hemoglobin (14-18) g/dL Sodium (131-143) mmol/L Potassium (3.5-5.0) mmol/L Glucose (70-115) mg/dL Ionized Calcium (1.1-1.4) mmol/L O2 Delivery Device O2 Liters/Min % Physiotherapy Assistant ID Chloride (98-107) mmol/L Carbon Dioxide (22-29) mmol/L Anion Gap (5-19) BUN (8-23) mg/dL Creatinine (0.7-1.2) mg/dL GFR Calculation (90-130) mL/min POC Glucose (70-110) mg/dL Calculated Osmolal ity (285-295) mOsm/k g Lactate (0.5-2.2) mmol/L Calcium (8.5-10.5) mg/dL Total Bilirubin (0.15-1.2) mg/dL AST (0-40) U/L ALT (0-41) U/L Alkaline Phosphata se (40-130) IU/L Creatine Kinase (39-308) U/L NT-Pro-B Natriuret Pep (0-125) pg/mL Total Protein (6.6-8.7) g/dL Albumin (3.5-5.2) g/dL Globulin (1.3-4.6) g/dL Lipase (13-60) U/L Folate (4.5-32.2) ng/mL TSH (0.27-4.20) uIU/ mL Urine Color Dark yellow (Yellow) Urine Appearance Sl cloudy A (CLEAR) Urine pH 5 (5-7) Ur Specific Gravit y 1.025 (1.005-1.030) Urine Protein Neg (Negative) Urine Glucose (UA) Norm (Normal) Urine Ketones Negative (Negative) Urine Blood 3+ H (Negative) Urine Nitrate Negative (Negative) Urine Bilirubin 1+ H (NEGATIVE) Urine Urobilinogen Norm (Negative) mg/dL Ur Leukocyte Agustina ase Negative (Negative) Urine RBC 50-80 H (0-2) /hpf Urine WBC 0-4 H (0-5) /hpf Ur Squamous Epith Cells 0-4 H (0-5) Amorphous Sediment 1+ Urine Bacteria 1+ H (NONE) Urine Mucus Trace Ur Random Sodium 11 mmol/L Urine Creatinine 407 H (39-259) mg/dL Hep Bs Antigen Non-reactive (Nonreactive) Hep Bs Antibody 3.5 (0-8.5) Hepatitis C Antibo dy (Nonreactive) 03/13/20 Range/Units 20:28 WBC (4.0-10.0) 10^3/ uL RBC (4.1-5.3) 10^6/u L Hgb (11.7-16.6) g/dL Hct (42.0-52.0) % MCV (80-94) fL MCH (28.0-34.0) pg MCHC (30.0-36.0) g/dL RDW (12.1-15.1) % Plt Count (130-400) 10^3/c mm MPV (7.4-10.4) fL Neut % (Auto) % Lymph % (Auto) % Upton % (Auto) % Eos % (Auto) % Baso % (Auto) % Reticulocyte % (Au to) % Neut # (Auto) (1.8-7.7) 10^3/u L Lymph # (Auto) (0.8-4.8) 10^3/u L Upton # (Auto) (0.2-0.9) 10^3/u L Eos # (Auto) (0.0-0.8) 10^3/u L Baso # (Auto) (0.0-0.1) 10^3/u L Nucleated RBC % (a uto) % Nucleated RBCs # /100WBC PT (10.5-13.3) SECO NDS INR (0.8-1.2) APTT (23.9-36.7) SECO NDS Specimen Type Sample Site ABG pH (7.35-7.45) ABG pCO2 (35-45) mmHg ABG pO2 (80.0-100.0) mmH g ABG HCO3 (22-26) mmol/L ABG O2 Saturation ABG Base Excess (-2.0-2.0) mmol/ L Siddhartha Test Hematocrit (42-52) % Hgb O2 Saturation (95-100) % Methemoglobin (0.4-1.5) % Total Hemoglobin (14-18) g/dL Sodium (131-143) mmol/L Potassium (3.5-5.0) mmol/L Glucose (70-115) mg/dL Ionized Calcium (1.1-1.4) mmol/L O2 Delivery Device O2 Liters/Min % Physiotherapy Assistant ID Chloride (98-107) mmol/L Carbon Dioxide (22-29) mmol/L Anion Gap (5-19) BUN (8-23) mg/dL Creatinine (0.7-1.2) mg/dL GFR Calculation (90-130) mL/min POC Glucose 238 (70-110) mg/dL Calculated Osmolal ity (285-295) mOsm/k g Lactate (0.5-2.2) mmol/L Calcium (8.5-10.5) mg/dL Total Bilirubin (0.15-1.2) mg/dL AST (0-40) U/L ALT (0-41) U/L Alkaline Phosphata se (40-130) IU/L Creatine Kinase (39-308) U/L NT-Pro-B Natriuret Pep (0-125) pg/mL Total Protein (6.6-8.7) g/dL Albumin (3.5-5.2) g/dL Globulin (1.3-4.6) g/dL Lipase (13-60) U/L Folate (4.5-32.2) ng/mL TSH (0.27-4.20) uIU/ mL Urine Color (Yellow) Urine Appearance (CLEAR) Urine pH (5-7) Ur Specific Gravit y (1.005-1.030) Urine Protein (Negative) Urine Glucose (UA) (Normal) Urine Ketones (Negative) Urine Blood (Negative) Urine Nitrate (Negative) Urine Bilirubin (NEGATIVE) Urine Urobilinogen (Negative) mg/dL Ur Leukocyte Agustina ase (Negative) Urine RBC (0-2) /hpf Urine WBC (0-5) /hpf Ur Squamous Epith Cells (0-5) Amorphous Sediment Urine Bacteria (NONE) Urine Mucus Ur Random Sodium mmol/L Urine Creatinine (39-259) mg/dL Hep Bs Antigen (Nonreactive) Hep Bs Antibody (0-8.5) Hepatitis C Antibo dy (Nonreactive) Critical Care Time Critical Care Time: Critical Care Time: Yes Total Critical Care Time: 65 Attestation: This case had a high probability of a clinically significant, sudden, or life threatening deterioration of this patient's condition which required my full and direct attention, intervention and personal management. Discharge Plan Discharge Patient Disposition: Admitted As Inpatient Admit Provider: Hugo Shi Clinical Impression: Sepsis Qualifiers: Sepsis type: sepsis due to unspecified organism Sepsis acute organ dysfunction status: with acute organ dysfunction Severe sepsis acute organ dysfunction type: acute renal failure Acute renal failure type: unspecified Severe sepsis shock status: with septic shock Qualified Code(s): A41.9 - Sepsis, unspecified organism Condition: Stable Discharge Date/Time: 03/13/20 23:54 Coding Level of Care Code ED Tobacco Prizer for Hossein Fwd Exam Detailed
[2020-03-13 17:43] LABS: INR 1.42 (0.8-1.2)
[2020-03-13 17:44] LABS: Partial Thromboplastin Time 37.3 SECONDS (23.9-36.7)
[2020-03-13 17:48] LABS: Alanine Aminotransferase 18 U/L (0-41); Albumin Level 3.8 g/dL (3.5-5.2); Alkaline Phosphatase 124 IU/L (40-130); Anion Gap 37.3 (5-19); Aspartate Amino Transferase 21 U/L (0-40); Calcium 10.8 mg/dL (8.5-10.5); Carbon Dioxide 12 mmol/L (22-29); Chloride 106 mmol/L (98-107); Globulin 4.9 g/dL (1.3-4.6); Glomerular Filtration Rate 2.4 mL/min (90-130); Glucose 151 mg/dL (65-115); Lipase 274 U/L (13-60); Sodium 148 mmol/L (136-145); Total Bilirubin 0.4 mg/dL (0.15-1.2); Total Protein 8.7 g/dL (6.6-8.7)
[2020-03-13 18:11] LABS: Blood Urea Nitrogen 268 mg/dL (8-23); Osmolality Calculated 319 mOsm/kg (285-295); Potassium 7.3 mmol/L (3.5-5.1)
[2020-03-13 18:15] LABS: Add Urine Microscopic? YES; Bilirubin Urine 1+ (NEGATIVE); Blood Urine 3+ (Negative); Glucose Urine UA Norm (Normal); Ketones Urine Negative (Negative); Leukocyte Esterase Urine Negative (Negative); Nitrate Urine Negative (Negative); Protein Urine Neg (Negative); Specific Gravity, Urine 1.025 (1.005-1.030); Urine Color Dark Yellow (Yellow); Urobilinogen Urine Norm (Negative); pH Urine 5 (5-7)
[2020-03-13 18:17] LABS: RBC Urine 50-80 /hpf (0-2); WBC Urine 0-4 /hpf (0-5)
[2020-03-13 18:18] LABS: Add Urine Culture? Yes; Amorphous Sediment Urine 1+; Bacteria Urine 1+; Mucus Urine TRACE; Squamous Epithelial Cell Urine 0-4 (0-5)
[2020-03-13] MEDS: sodium bicarbonate 8.4% 1 mEq/mL 50mL Syr 100 MEQ IVP (20:02)
[2020-03-13] MEDS: dextrose 50% syringe 50 mL IVP (20:06)
[2020-03-13] MEDS: calcium gluconate 0.1 gm/mL 10% SDV 10mL 2 GM IVP (20:08)
[2020-03-13] MEDS: insulin regular-human 100 units/1 mL 10 UNIT IVP (20:10)
[2020-03-13] MEDS: piperacillin-tazobactam 2.25 GM in sodium chloride 0.9% (plus) 50 ML IV (20:15)
[2020-03-13 20:37] LABS: Glucose Point of Care 238 mg/dL (70-110)
--- NOTE | 2020-03-13 20:45 | P.HP_ITS ---
Providers/Chief Complaint Primary Care Provider: Marcos Barksdale Chief Complaint: AMS History of Present Illness Julian Menchaca is a 64 year old male with no known past medical history other than ureteral stent back in October 2006 who lives alone, was sent in by his landlord today when he was found confused, soiled in his urine and feces. Landlord is stating that for last 4 to 5 days no one has seen him outside of his house, he decided to check on him because of foul odor coming out of his house, they had to break in, he was found very confused and delirious sitting in his chair in front of his computer soiled with feces and urine all over, EMS was called at that point. On arrival to the ER patient was extremely hypotensive, systolic blood pressure was in 70s, tachycardic, afebrile, tachypneic, his mentation improved after fluid resuscitation, he is awake alert and is stating that he was extremely weak for last few weeks, he did not have strength to get out of chair, he has been noticing swelling of his legs. He is denying chest pain, shortness of breath, abdominal pain, not a reliable historian. On arrival to the ER his lower extremities had fecal matter all over with maggots around his socks, foul-smelling lower extremities with extremely poor hygiene, his mentation was improving with fluid resuscitation, intubation was not done in the ER Diagnostic work-up shows sepsis, extreme metabolic acidosis due to uremia, coagulopathy, potassium 7.3, no EKGs noted for hyperkalemia, BUN to 68 creatinine 19, lactic acid [address] abdomen and pelvis without contrast because of previous history of nephrolithiasis For severe metabolic acidosis he seems to be compensating well with respiratory alkalosis with no active restaurant distress at the time of my interview Review of Systems Const: Reports: chills, body aches, change in weight and fatigue; Denies: fever Eyes: Denies: change in vision ENMT: Denies: throat pain Card: Reports: edema and swelling of feet/ankles; Denies: chest pain, palpitations, shortness of breath on exertion or shortness of breath when lying down Resp: Denies: shortness of breath GI: Denies: abdominal pain, nausea or vomiting : Reports: difficulty urinating and change in urine stream; Denies: flank pain Musc: Denies: neck pain or back pain Skin/Breast: Reports: rash, skin pain, skin tenderness, new lesion and other (Skin maggots at lower extremities, poor hygiene, multipleChronic lesion, venous stasis dermatitis) Neuro: Reports: dizziness and confusion; Denies: headache or slurred speech Psych: Reports: depression, sleeping more and loss of interest Endo: Denies: excessive urination Beni/Lymph: Denies: easy bruising All/Imm: Denies: hives Medications/Allergies Home Medications Medication Instructions Recorded Confirmed Last Taken Type Unable to Assess 03/13/20 03/13/20 Unknown History PFSH Acute PFSH: Medical History Former smoker Hernia Nephrolithiasis Pilonidal cyst Urolithiasis Left-sided with microscopic hematuria 9 mm Surgical History H/O cystoscopy History of ureter stent After failing medical management Stent placement in 10/10 Family History Other Hypertension Social History Smoking and tobacco status: former smoker Alcohol intake: former Substance/Drug Use: never Lives independently: Yes Household members: other Details: Lives alone, was taking computer repair classes at [facility] [employer] Marital status: / Vitals/I&O/Wt Last Vital Signs Temp 97.7 F 03/13/20 16:38 Pulse 108 H 03/13/20 20:35 Resp 20 H 03/13/20 20:35 BP 71/45 03/13/20 20:35 Pulse Ox 100 03/13/20 20:35 Weight last 48 hrs Weight 113.398 kg Physical Exam Narrative: EXAM NARRATIVE: Head to toe examination On entering the room there is foul smell Patient is redirectable, able to follow my commands and answer few of my ques tions Not able to make eye contact, Currently saturating well on nonrebreather 8 L Current systolic blood pressure 90/60mmhg No active respiratory distress Unkempt appearance Poor hygiene S1, S2 tachycardia with signs of heart failure Bilateral breath sounds without adventitious sounds Abdomen, distended, visceral obesity, no signs of peritonitis or rigidity, bowel sounds sluggish Neurological status: He is awake, able to follow my commands, oriented to himself Asterixis negative Bilateral venous stasis dermatitis Cellulitis of lower extremities, seems to be purulent and contaminated with fecu lent material Onychomycosis, Perineal area seems red and inflamed, no active purulent discharge seen, not able to palpate for any capitation Bilateral pulses 1+ dorsalis pedis Urine catheter draining cola colored urine Maggots were removed from his lower extremities Pertinent negatives No uremic encephalopathy at the time of my evaluation No clinical signs of pancreatitis, no epigastric tenderness on palpation CT abdomen pending Data : 03/13/20 17:19 03/13/20 17:19 Micro: Microbiology 03/13/20 17:22 Blood Culture - Preliminary Blood SPECIMEN COLLECTED 03/13/20 17:19 Blood Culture - Preliminary Blood SPECIMEN COLLECTED A&P Assessment and plan (1) Septic shock: Status: Acute (2) Cellulitis: Status: Acute (3) Hyperkalemia: Status: Acute (4) Metabolic acidosis: Status: Acute (5) Acute kidney injury: Status: Acute (6) Hematuria: Status: Acute (7) Perineal abrasion: Status: Acute (8) Normocytic anemia: Status: Acute Additional A&P Information Septic shock Differentials are broad at this point aspiration pneumonia, cellulitis, pyelonephritis, cystitis Venous stasis dermatitis of bilateral lower extremities, purulent drainage with feculent material contamination 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 This regimen has been chosen because of severe PEREZ Hyperkalemia Patient had received insulin, D5, albuterol, calcium gluconate in the ER, I would give rectal Kayexalate check potassium in half an hour Nephro has been consulted, I have talked with Dr. Marilou Torres Severe metabolic acidosis with good respiratory compensation due to PEREZ/uremia Normal lactic acid, No signs of uremic encephalopathy at this point but he is high risk and might need intubation, will be monitored in the ICU I would start bicarb drip with D5 Monitor output, Place Narayan catheter Patient has signs of fluid overload, sodium 148, consistent with intravascular depletion Albumin 3.8 Coagulopathy due to septic shock Patient has anemia, normocytic, he has active gross hematuria: Colored urine I would not use any DVT prophylaxis at this point as he might need a dialysis catheter and surgical intervention next few hours Cola colored urine He has history of nephrolithiasis, CT abdomen pelvis did not reveal any hydronep hrosis however 10 mm calculus seen in left kidney, he does not carry diagnosis of glomerular disease in the past It is a nonobstructing calculi, no acute indication for urology at this point, his previous nephrolithiasis was also on the same side I am not sure if this stone is the nidus of infection Patient is full code DVT prophylaxis not indicated because of anemia and cola colored urine High risk for intubation Advance diet once he is more awake and alert Attestations Medical Necessity Statement*: Anticipating stay in the hospital course more than 2 midnights currently in septic shock needs fluids and might need vasopressors, he might need hemodialysis in the next few hours. Patient is critical Time Spent in Patient Care: 60 Coding Level of Care Code Acute Strategic Account Executive for Hossein Pan Diagnoses Septic shock A41.9; R65.21 Cellulitis L03.90 Hyperkalemia E87.5 Metabolic acidosis E87.2 Acute kidney injury N17.9 Hematuria R31.9 Perineal abrasion Normocytic anemia D64.9
--- NOTE | 2020-03-13 20:57 | CTR_ITS ---
PROCEDURE INFORMATION: Exam: CT Abdomen And Pelvis Without Contrast Exam date and time: 03/13/2020 9:10 PM Age: 64 years old Clinical indication: Abnormal findings; Abnormal lab test; Abnormal kidney function lab tests and elevated wbc; Patient HX: Found unresponsive 3+blood in urine, elev chemistries, and wbcs; Additional info: Abdoulaye with hydronephrosis history TECHNIQUE: Imaging protocol: Computed tomography of the abdomen and pelvis without contrast. Radiation optimization: All CT scans at this facility use at least one of these dose optimization techniques: automated exposure control; mA and/or kV adjustment per patient size (includes targeted exams where dose is matched to clinical indication); or iterative reconstruction. COMPARISON: No relevant prior studies available. RADIATION DOSE METRICS: Total DLP: 1955.6 mGy-cm FINDINGS: Lungs: Patchy ground-glass opacities in the dependent left lower lobe and lingula. Liver: Normal. No mass. Gallbladder and bile ducts: Cholelithiasis. The bile ducts are normal. Pancreas: Normal. No ductal dilation. Spleen: Calcified granulomas in the spleen. Adrenals: Normal. No mass. Kidneys and ureters: Atrophic right kidney. 10 mm calculus in the inferior left kidney. No hydronephrosis. Stomach and bowel: Unremarkable. No obstruction. No mucosal thickening. Appendix: No evidence of appendicitis. Intraperitoneal space: Unremarkable. No free air. No significant fluid collection. Vasculature: Unremarkable. No abdominal aortic aneurysm. Lymph nodes: Subcentimeter retroperitoneal and left iliac chain lymph nodes are most likely reactive. Prominent inguinal lymph nodes. Bladder: Narayan catheter in a decompressed urinary bladder. Reproductive: Unremarkable as visualized. Bones/joints: Unremarkable. No acute fracture. Soft tissues: Fat containing umbilical hernia. Diastasis rectus. Fat containing right inguinal hernia. CT/CT abdomen pelvis wo con [id number] IMPRESSION: 1. Pneumonia versus aspiration in the left lung base. 2. Cholelithiasis. 3. Nonobstructing calculus in the left kidney. 4. Atrophic right kidney. 5. Probable reactive retroperitoneal, left iliac chain, and bilateral inguinal lymph nodes. Radiation Dose CTDIVOL = (mGy): DLP = 1955.6 (mGy-cm)
--- NOTE | 2020-03-13 22:29 | PM.CONSULT ---
Providers/Reason For Consult Consulting Physican/Specialty*: Padmini Torres DO, telenephrology Reason for Consult*: PEREZ, hyperkalemia, metabolic acidosis Requesting Physcian: Dr Shi Primary Care Provider: Marcos Barksdale History of Present Illness History of Present Illness Julian Menchaca is a 64 year old male presented to ER with altered mental status. Unknown duration of illness. History not obtainable Review of Systems General: Reports: ROS unobtainable due to medical condition and other (complains of pain in shoulders and legs) Meds/Allergies Home Medications and Allergies Home Medications Medication Instructions Recorded Confirmed Last Taken Type Unable to Assess 03/13/20 03/13/20 Unknown History PFSH Acute PFSH: Medical History Former smoker Hernia Nephrolithiasis Pilonidal cyst Urolithiasis Left-sided with microscopic hematuria 9 mm Surgical History H/O cystoscopy History of ureter stent After failing medical management Stent placement in 10/10 Family History Other Hypertension Social History Smoking and tobacco status: former smoker Alcohol intake: former Substance/Drug Use: never Lives independently: Yes Household members: other Details: Lives alone, was taking computer repair classes at [facility] Marital status: / Vitals/I&O/Wt Last Vital Signs Temp 97.7 F 03/13/20 16:38 Pulse 108 H 03/13/20 20:35 Resp 20 H 03/13/20 20:35 BP 71/45 03/13/20 20:35 Pulse Ox 100 03/13/20 20:35 Weight last 48 hrs Weight 113.398 kg Physical Exam Const: EXAM LIMITATIONS: altered mental status GENERAL APPEARANCE: appears older than stated age Data Micro: Micro: Microbiology 03/13/20 17:22 Blood Culture - Pr eliminary Blood SPECIMEN COLLE ARON 03/13/20 17:19 Blood Culture - Pr eliminary Blood SPECIMEN [facility] ARON Other Data: Attestation for Other Data: I personally reviewed and interpreted the following: (CT Abdomen without contrast:) Other data: 1. Pneumonia versus aspiration in the left lung base. 2. Cholelithiasis. 3. Nonobstructing calculus in the left kidney. 4. Atrophic right kidney. 5. Probable reactive retroperitoneal, left iliac chain, and bilateral inguinal lymph nodes. A&P Additional A&P Information 1. Presumed acute kidney injury, with hyperkalemia and metabolic acidosis. Has made 800 ml dark colored urine. CT scan did not show hydronephrosis. PEREZ likely due to sepsis and volume depletion. Outpatient medications unknown. R/O rhabdomyolysis 2. Sepsis, bilateral lower extremity cellulitis, possible pneumonia 3. Anemia, coagulopathy 4. Hypercalcemia Recommend: Aggressive IVF hydration - has received 4 liters IVF, now on bicarbonate gtt. Repeat BMP, ABG, check CK Panculture, IV antibiotics received. Discussed with Dr Shi Consult Attestations Medical Necessity Statement: critically ill, requires intensive care Coding Level of Care Code Acute Restaurant Front Manager for Hossein Pan
[2020-03-13 22:42] LABS: ABG PCO2 26.5 mmHg (35-45); ABG PH Result 7.26 (7.35-7.45); Arterial Blood Gas Hematocrit 25.6 % (42-52); Base Excess ABG -13.9 mmol/L (-2.0-2.0); Blood Gas Allen Test Pos; Blood Gas Sample Site Radial, right; Blood Gas Sample Type Arterial; HCO3 ABG 11.8 mmol/L (22-26); HGB O2 Sat 97.5 % (95-100); Ionized Calcium Level - ABG 1.3 mmol/L (1.1-1.4); Methemoglobin 1.4 % (0.4-1.5); Oxygen Device NRB; Oxygen Saturation ABG 98.9; Potassium Level - ABG 5.7 mmol/L (3.5-5.0); Total Hemoglobin 8.4 g/dL (14-18)
[2020-03-13 23:46] LABS: Anion Gap 34.1 (5-19); Calcium 9.8 mg/dL (8.5-10.5); Carbon Dioxide 13 mmol/L (22-29); Chloride 110 mmol/L (98-107); Glomerular Filtration Rate 2.7 mL/min (90-130); Glucose 111 mg/dL (65-115); Potassium 6.1 mmol/L (3.5-5.1); Sodium 151 mmol/L (136-145)
[2020-03-13 23:50] LABS: NT Pro B Type Natriuretic Pept 559 pg/mL (0-125); Thyroid Stimulating Hormone 0.61 uIU/mL (0.27-4.20)
[2020-03-13 23:57] LABS: Creatine Phosphokinase 444 U/L (39-308)
[2020-03-13 23:57] LABS: Blood Urea Nitrogen 248 mg/dL (8-23); Osmolality Calculated 322 mOsm/kg (285-295)
[2020-03-14] VITALS (53 sets, daily range): BP systolic 66–117; BP diastolic 34–69; PULSE 75–125; RESP 0–34; TEMP 36.8–37.4; O2SAT 87–100
--- NOTE | 2020-03-14 00:11 | PC.NURSE ---
burton placed in ed prior to arriving to ICU.
--- NOTE | 2020-03-14 00:27 | PC.NURSE ---
Patient received from ed at 2345 via stretcher. Patient transferred to bed x4 assist. Patient has burton catheter in place with dark brown/cola colored urine present. Patient is awake, oriented to self, and has garbled speech. Bilateral lower legs are dark red and raw in appearance. Unsure is stasis ulcer or pressure areas. The legs are unstageable.
[2020-03-14] MEDS: sodium bicarbonate 150 MEQ in dextrose 5% 1,000 ML IV (00:37)
[2020-03-14] MEDS: aztreonam 1,000 MG in sodium chloride 0.9% (plus) 50 ML 100 MG IV ×3 (00:43→23:22)
[2020-03-14] MEDS: sodium polystyrene sulfonate 15 gm/60 mL Btl 30 GM PR (01:01)
--- NOTE | 2020-03-14 01:32 | PC.PHAR ---
Pharmacokinetic dosing service Date: 03/13/20 Time: 2299 Objective: Patient: Julian Menchaca Floor: ICU-3 Age: 64 yo Serum creatinine: 5.3694 mg/dL Height: 73.0 Inches Weight (kg): 113.398 Diagnosis: Relevant medical/social history: Cultures and sensitivities: Other labs: Assessment: IBW (kg): 79.90 Dosing wt(kg): 113.398 Estimated Creatinine clearance (ml/min): 15.5 CRCL method: Cockcroft and Gault using ibw(default). Drug selected: Vancomycin Loading dose (mg): 0 Vd (liters): 102.1 (factor used: 0.9 L/kg) Ankush (hr-1): 0.017 Half life (hrs): 40.77 Recommended dose: 1500 mg Interval: 48 hrs Infusion time (hrs): 1.5 Predicted peak (mcg/mL): 26.0 Predicted trough (mcg/mL): 11.79 Total body weight is being used for vancomycin dosing. Renal function is stable [ ] /unstable [ ] Recommendations: Give Vancomycin 1500 mg q 48 hrs with an expected Cpeak of 26.0 mcg/ml and an expected Ctrough of 11.79 mcg/ml Renal dosing of other antibiotics (review renal dosing of other medications and list guidelines here): Thank you for the consult, will continue to follow. Signature: Dolores Maddox reed
[2020-03-14] MEDS: diphenhydrAMINE 25 mg Capsule PO (01:44)
[2020-03-14 01:45] LABS: Urine Creatinine 407 mg/dL (39-259)
[2020-03-14] MEDS: sodium chloride 0.9% (100 ml) 100 ML 20 ML (01:45)
[2020-03-14] MEDS: clindamycin 900 MG/50 ML PREMIX 100 MG IV ×3 (01:46→19:04)
[2020-03-14 02:06] LABS: Urine Random Sodium 11 mmol/L
--- NOTE | 2020-03-14 02:39 | PC.NURSE ---
Patient given bed bath at this time. Patient did not tolerate well. Patient experiencing severe pain to light touch and movements. Numerous wounds to body. Opti-foam place to left buttock. Redness to groin and scrotum. Left arm pit also red and irritated, very painful to touch. Patient positioned to left side for comfort.
[2020-03-14] MEDS: TRAMadol 50 mg Tablet PO (02:55)
[2020-03-14 04:51] LABS: Eosinophils % 0.2 %; Hematocrit 22.5 % (42.0-52.0); Hemoglobin 6.8 g/dL (11.7-16.6); Lymphocytes # 0.3 10^3/uL (0.8-4.8); Lymphocytes % 2.1 %; Mean Corpuscular HGB Conc 30.2 g/dL (30.0-36.0); Mean Corpuscular Hemoglobin 28.7 pg (28.0-34.0); Mean Corpuscular Volume 94.9 fL (80-94); Mean Platelet Volume 10.8 fL (7.4-10.4); Monocytes # 1.2 10^3/uL (0.2-0.9); Monocytes % 8.4 %; Neutrophils # 12.8 10^3/uL (1.8-7.7); Neutrophils % 88.7 %; Nucleated Red Blood Cells % 0 %; Platelet Count 253 10^3/cmm (130-400); Positive C 1; Red Blood Count 2.37 10^6/uL (4.1-5.3); Red Cell Distribution Width 15.1 % (12.1-15.1); White Blood Count 14.4 10^3/uL (4.0-10.0)
[2020-03-14] MEDS: morphine 4 mg/mL SDV 1 mL IVP (05:01)
[2020-03-14 05:09] LABS: Alanine Aminotransferase 25 U/L (0-41); Albumin Level 2.6 g/dL (3.5-5.2); Alkaline Phosphatase 126 IU/L (40-130); Anion Gap 30.7 (5-19); Aspartate Amino Transferase 51 U/L (0-40); Calcium 10.5 mg/dL (8.5-10.5); Carbon Dioxide 15 mmol/L (22-29); Chloride 112 mmol/L (98-107); Globulin 4.4 g/dL (1.3-4.6); Glomerular Filtration Rate 2.6 mL/min (90-130); Glucose 141 mg/dL (65-115); Potassium 5.7 mmol/L (3.5-5.1); Sodium 152 mmol/L (136-145); Total Bilirubin 0.3 mg/dL (0.15-1.2)
[2020-03-14 05:12] LABS: INR 1.43 (0.8-1.2); Partial Thromboplastin Time 32.4 SECONDS (23.9-36.7)
[2020-03-14 05:16] LABS: D Dimer 2.04 ug/mIFEU (0-0.59)
[2020-03-14 05:17] LABS: Fibrinogen 638 mg/dL (184-529)
[2020-03-14 05:22] LABS: Slide Review Slide Review Perform
--- NOTE | 2020-03-14 06:00 | XR_ITS ---
WS: [id number] XR chest 1V portable [id number] REASON FOR EXAM: fluid overload FINDINGS: The heart and mediastinal interfaces normal. Comparisons were made to March 13, 2020. No pulmonary edema, pneumonia, pleural effusion, No pneumothorax. The hilum and apices normal. XR/XR chest 1V portable [id number] IMPRESSION: Negative chest for active pathology
[2020-03-14 06:06] LABS: Blood Urea Nitrogen 251 mg/dL (8-23); Osmolality Calculated 326 mOsm/kg (285-295)
--- NOTE | 2020-03-14 07:44 | P.PN_ITS ---
Subjective Subjective: Interval history: sedated, on maximum dose levophed Medications: Reviewed: Yes Vitals/I&O/Wt Last Vital Signs Temp 97.7 F 03/13/20 16:38 Pulse 112 H 03/14/20 06:00 Resp 24 H 03/14/20 05:01 BP 99/60 03/14/20 06:00 Pulse Ox 100 03/14/20 05:01 03/13/20 03/14/20 03/14/20 22:59 06:59 14:59 Intake Total 4344.25 / 4344.25 Output Total 650 / 650 Balance 3694.25 / 3694.25 Weight last 48 hrs Weight 113.398 kg Physical Exam Narrative: EXAM NARRATIVE: sleeping, appears comfortable Extremity: NARRATIVE EXTREMITY EXAM: no edema, legs below knees are discolored. Urinary Catheter Management^: Narayan: Cath Placed During This Visit: yes Urinary Catheter Date of Insertion: 03/14/20 Data : 03/14/20 04:29 03/14/20 04:29 Other Labs: CK 444, urine Na 11, FeNa <<< 1%, calcium 10.5 Micro: Microbiology 03/13/20 17:22 Blood Culture - Preliminary Blood SPECIMEN COLLECTED 03/13/20 17:19 Blood Culture - Preliminary Blood SPECIMEN COLLECTED A&P Additional A&P Information 1. Presumed acute kidney injury, with hyperkalemia and metabolic acidosis, both improved. Urine consistent with prerenal state. CT scan did not show hydronephrosis. PEREZ likely due to sepsis and volume depletion. Outpatient medications unknown. 2. Sepsis, bilateral lower extremity cellulitis, possible pneumonia (not evident on CXR) 3. Anemia, coagulopathy 4. Hypercalcemia, improved 5. Hypernatremia Recommend: Reduce sodium bicarbonate infusion. Given no improvement in BUN and creatinine, recommend initiating dialysis. He may not tolerate dialysis. Unknown if he has next of kin. Continue IVF hydration with hypotonic fluids. Transfuse pRBC. Discussed with Dr Hayes. Attestations Medical Necessity Statement*: critically ill Coding Level of Care Code Acute Paint Mixer Hand for Hossein Pan
--- NOTE | 2020-03-14 07:57 | PC.NURSE ---
MAP was 59. Levaphed increased to 10 mcg/min
--- NOTE | 2020-03-14 09:06 | PM.PN ---
Subjective Subjective: Interval history: He is somnolent, not answering questions. Moans when he is repositioned. Withdraws from pain. Vitals/I&O/Wt Last Vital Signs Temp 99.4 F 03/14/20 08:00 Pulse 94 03/14/20 08:00 Resp 20 H 03/14/20 08:00 BP 86/45 03/14/20 08:00 Pulse Ox 99 03/14/20 08:00 03/13/20 03/14/20 03/14/20 22:59 06:59 14:59 Intake Total 4344.25 / 4344.25 Output Total 650 / 650 350 / 350 Balance 3694.25 / 3694.25 -350 / -350 Weight last 48 hrs Weight 113.398 kg Physical Exam Const: COMMON NORMALS: no apparent distress (In pain when moved.); negative for oriented x3 GENERAL APPEARANCE: disheveled and lethargic ORIENTATION/CONSCIOUSNESS: Yes confused and Yes lethargic HENMT: COMMON NORMALS: oropharynx normal Neck/C-Spine: COMMON NORMALS: no JVD Resp: COMMON NORMALS: normal respiratory effort and clear to auscultation bilaterally AUSCULTATION: clear to auscultation bilaterally Cardio: COMMON NORMALS: no JVD, regular rhythm, S1 normal heart sound, S2 normal heart sound and no murmurs RHYTHM: regular rhythm HEART SOUNDS: S1 normal and S2 normal GI: COMMON NORMALS: normal to inspection, nondistended, normoactive bowel sounds, soft to palpation and non-tender PALPATION: Yes soft Extremity: COMMON NORMALS: no joint enlargement NARRATIVE EXTREMITY EXAM: Extremely overgrown toenails bilaterally. GENERAL: Yes edema (2+) Neuro: COMMON NORMALS: moves all extremities; negative for oriented x3 SENSORIUM/ORIENTATION: Yes lethargic Skin: LESIONS: lesion noted (Extensive shallow ulcerations on bilateral lower extremities, with chronic venous stasis changes, currently with also superimposed cellulitis) There is also about 2 cm diameter patch of necrotic tissue on the sacrum, with possible deep tissue injury. Pale scrotal erythema with several sub-centimeter shallow ulcerations. Urinary Catheter Management^: Narayan: Cath Placed During This Visit: yes Reason for Continuing Indwelling Catheter: Accurate Measurement of Urinary Output in Critically Ill Patients Urinary Catheter Date of Insertion: 03/14/20 Data : 03/14/20 04:29 03/14/20 04:29 Micro: Microbiology 03/14/20 05:59 Occult Blood (FIT) - Final Stool 03/13/20 17:22 Blood Culture - Preliminary Blood SPECIMEN COLLECTED 03/13/20 17:19 Blood Culture - Preliminary Blood SPECIMEN COLLECTED A&P Assessment and plan (1) Septic shock: Hypotensive on presentation. Currently on Levophed, but maintaining mean arterial pressure 70 on 10 mics. He has multiple possible sources of sepsis, including open wounds on lower extremities which were urgently covered with feces. As well as suspected underlying community-acquired pneumonia. For now we will continue IV hydration as he most likely has not been eating or drink in several days, however, monitor for fluid overload. Preparations are pending for initiation of hemodialysis with placement of dialysis catheter by surgery. Appreciate consultation. 1 unit PRBC transfusion for his anemia. Continue current antibiotics at this time. Add vasopressin if needed to further increase Levophed. He does appear to have a pressure ulceration on the sacrum, possibly deep tissue injury, although this is small, scrotum is somewhat erythematous, small shallow ulcerations, but otherwise in the groin at this time no sign of Duncan's gangrene. CT abdomen pelvis was not impressive. Status: Acute (2) Cellulitis: This appears to be acute on chronic superimposed finding. I was able to reach his friend who reports that he has been dealing with chronic colitis for a long time. 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 Appears to have chronic venous stasis ulcerations, currently with superimposed cellulitis, likely triggered with fecal matter as he has been unable to leave the chair he was found in possibly for several days. Continue vancomycin, aztreonam, clindamycin. We will request for venous Doppler ultrasound. Clean with soap and water, Hydrofera Blue to ulcerated/any weeping areas. Wound care consultation once he is little bit more stable. Status: Acute (3) Acute kidney injury: Discussed with his friend, suspect that this may be acute kidney injury superimposed on chronic kidney disease as he does appear to have some renal atrophy. His friend reports that he had been taking metformin for diabetes previously. Renal function does not appear to have responded significantly to fluid challenge. Preparations are currently underway for hemodialysis. He is going to have a hemodialysis catheter placed in the OR. Hemodialysis may be difficult due to his hypotension. Status: Acute (4) Hyperkalemia: This had improved somewhat with treatments on admission. At this time preparations are for hemodialysis. Status: Acute (5) Metabolic acidosis: Secondary to sepsis, septic shock, acute kidney injury. Status: Acute (6) Hematuria: Secondary to nephrolithiasis. Status: Acute (7) Perineal abrasion: There is some scrotal erythema, there are some shallow ulcerations, possibly from pressure of sitting in the chair. No purulence. There is foul yeasty smell. We will add nystatin cream. Status: Acute (8) Normocytic anemia: Status: Acute Additional A&P Information Anemia: Hemoglobin 6.8. Request 1 unit PRBC transfusion. Suspect this likely became apparent after the extensive hydration he is received, after dehydration, likely with chronic longstanding anemia. So far no outward bleeding has been observed. Anemia is microcytic. Will request B12, folic acid, iron studies. Sacral wound: 2 cm diameter sacral pressure sore, with some necrotic tissue superficially, although cannot exclude deep tissue injury at this time. Clean, apply Santyl, foam dressing. Abnormal INR: 1.43. Suspected secondary to nutritional deficiency, although cannot exclude underlying chronic liver disease. DM2: Friend reports he used to be taking metformin. Used to be taking a daily aspirin per friend. D-dimer elevated: Possibly due to chronic wounds, cannot exclude DVT at this time. Will request for lower extremity Doppler ultrasounds. DVT prophylaxis: For now has not received anything. SCD to be kept on a free arm if possible. Hyponatremia: Secondary to dehydration, hypokalemia. Elevated lipase: Not clear, possibly secondary to dehydration, possible degree of mild pancreatitis, although not visualized on CT. Cholelithiasis Nephrolithiasis Rhabdomyolysis: Mild. Creatine kinase 444. Goals of care: Friend states he is usually a very private person ever since leaving the [employer]. He used to be but his spouse had . He used to have a sister, although they have been estranged for many years. He does not have a power of attorney lawyer. He states that the patient has never stated any specific goals of care wishes, although did say that if he he would like to be buried by the [facility]. Request medical records from PCPs office. Attestations Medical Necessity Statement*: Continue admission for assessment management of septic shock, acute renal failure, requiring hemodialysis, pneumonia, extensive cellulitis of lower extremities, electrolyte abnormalities. Critical Care Time: In addition to noncritical issues 30 minutes critical care time spent on assessment management of hemodynamic instability, pressor support, current antibiotics with septic shock, with pneumonia, cellulitis, as well as severe acute kidney injury requiring hemodialysis. Coding Level of Care Code Acute Diesel Stationary Engineer for [facility] Diagnoses Septic shock A41.9; R65.21 Cellulitis L03.90 Acute kidney injury N17.9 Hyperkalemia E87.5 Metabolic acidosis E87.2 Hematuria R31.9 Perineal abrasion Normocytic anemia D64.9
--- NOTE | 2020-03-14 09:12 | P.CONIM_ITS ---
Providers/Reason For Consult Consulting Physican/Specialty*: Reed Foster MD Reason for Consult*: Acute kidney injury Attending Physician: Raj Hayes Primary Care Provider: Marcos Barksdale History of Present Illness History of Present Illness Chief Complaint: Unable to obtain patient is lethargic History of present illness: Mr. Julian Menchaca is a 64 year old male with associated other medical comorbidities including acute kidney injury patient was found unresponsive and was brought to the emergency department for further evaluation for sepsis and metabolic acidosis. General surgery was consulted for urgent placement of hemodialysis catheter. Patient was seen and evaluated in the ICU Review of Systems General: Reports: ROS unobtainable due to medical condition Meds/Allergies Home Medications and Allergies Home Medications Medication Instructions Recorded Confirmed Last Taken Type Unable to Assess 03/13/20 03/13/20 Unknown History Allergies Allergy/AdvReac Type Severity Reaction Status Date / Time No Known Allergies Allergy Verified 03/14/20 09:27 Current Medications Current Medications Generic Name Dose Route Start Last Admin Trade Name Freq PRN Reason Stop Dose Admin Diphenhydramine HCl 25 mg 03/14/20 01:39 03/14/20 01:44 Benadryl PO 25 mg Q6H PRN Administration ITCHING Clindamycin HCl/Dextrose 900 mg in 50 mls @ 100 mls/hr 03/14/20 00:00 03/14/20 03:13 Cleocin IV Infused Q8H DOMENICO Infusion Protocol Aztreonam 1,000 mg/ Sodium 50 mls @ 100 mls/hr 03/13/20 23:30 03/14/20 01:48 Chloride IV Infused Q12H DOMENICO Infusion Protocol Norepinephrine Bitartrate 4 mg 254 mls @ 0 mls/hr 03/13/20 23:13 03/14/20 06:10 / Dextrose IV 30 mls/hr .Q0M PRN Titration hypotension Protocol Per Protocol Sodium Bicarbonate 150 meq/ 1,150 mls @ 150 mls/hr 03/13/20 23:13 03/14/20 00:37 Dextrose IV 150 mls/hr .Q7H40M DOMENICO Administration Tramadol HCl 50 mg 03/14/20 02:49 03/14/20 02:55 Ultram PO 50 mg Q4H PRN Administration MODERATE PAIN PFSH Acute PFSH: Medical History Former smoker Hernia Nephrolithiasis Pilonidal cyst Sepsis Urolithiasis Left-sided with microscopic hematuria 9 mm Surgical History H/O cystoscopy History of ureter stent After failing medical management Stent placement in 10/10 Family History Other Hypertension Social History Smoking and tobacco status: former smoker Alcohol intake: former Substance/Drug Use: never Lives independently: Yes Household members: other Details: Lives alone, was taking computer repair classes at [employer] Marital status: / Vitals/I&O/Wt Last Vital Signs Temp 99.4 F 03/14/20 08:00 Pulse 94 03/14/20 08:00 Resp 20 H 03/14/20 08:00 BP 86/45 03/14/20 08:00 Pulse Ox 99 03/14/20 08:00 03/13/20 03/14/20 03/14/20 22:59 06:59 14:59 Intake Total 4344.25 / 4344.25 Output Total 650 / 650 350 / 350 Balance 3694.25 / 3694.25 -350 / -350 Weight last 48 hrs Weight 250 lb Physical Exam Narrative: EXAM NARRATIVE: Patient is semi-conscious and lethargic on pressors BMI 33 Head and neck examination PERRLA no masses no cervical lymphadenopathy no jaundice Cardiac examination audible S1-S2 no murmurs no gallops no arrhythmias Chest is clear bilateral,abscence of Rhonchi or wheezes,no surgical emphysema Abdomen nontender nondistended soft no organomegaly guarding or rigidity/no signs of peritonitis Chronic umbilical hernia Poor Hygiene Extremities multiple blisters and ulcerations likely due to chronic venous insufficiency, chronic ingrowing nails of both feet Left gluteal pressure injury ulcer stage II 2 x 2 centimeter and sacral pressure injury ulcer stage II 3 x 4 cm. Urinary Catheter Management^: Narayan: Cath Placed During This Visit: yes Reason for Continuing Indwelling Catheter: Accurate Measurement of Urinary Output in Critically Ill Patients Urinary Catheter Date of Insertion: 03/14/20 Data Micro: Micro: Microbiology 03/14/20 05:59 Occult Blood (FIT) - Final Stool 03/13/20 17:22 Blood Culture - Pr eliminary Blood SPECIMEN [facility] 03/13/20 17:19 Blood Culture - Pr eliminary Blood SPECIMEN [facility] A&P Assessment and plan (1) Acute kidney injury: Plan of care; After limited history physical examination and reviewing the chart,will plan for urgent hemodialysis access in the form of non-tunneled catheter bedside in the ICU. Due to the medical necessity and the Emergent nature of the procedure a consent will be signed by the hospitalist Dr. Hayes and myself. I did discuss the case also with Dr. Person the souvenir assembler that she believes that the patient has an overall poor prognosis. consent per chart. After further recovery and for better evaluation of the patient's lower extremities I would recommend venous duplex and arterial duplex studies. Thank you for consulting general surgery to participate taking care Status: Acute (2) Stage 2 pressure ulcer with suspected deep tissue injury: Left gluteal and sacral areas, recommend application of OPTi foam Sponge bath daily Please call for questions or concerns Status: Acute Consult Attestations Medical Necessity Statement: Per hospitalist service Time Spent in Patient Care: 16 - 35 minutes (>than 50% of time spent in counselling and/or direct pt care on unit) . Procedures Procedure Narrative Pre Procedure diagnosis; acute renal failure Postprocedure diagnoses the same Procedure done; placement of 12 Frisian temporary dialysis catheter Indication acute renal failure under ultrasound guidance and all interpretation was done by me through the whole entire procedure. Medications were reviewed to assess for anticoagulant usage. Risks and benefits and prevention of central line associated blood stream infection (CLABSI) were discussed with the patient/CPOA, and a consent was obtained. Monitors were in place and monitored throughout the procedure. All necessary supplies were available prior to start. Hand hygiene was completed prior to starting. Maximum barrier technique was utilized including a sterile gown, sterile gloves with a hat and mask. Site was was prepped with [chlorhexidine] and a full body drape was placed. 5 mL of 2% lidocaine was injected into the skin with a 25 gauge needle. Description Pre-prep ultrasound was done shows patency of the right femoral vein without intraluminal thrombosis with my personal interpretation Local anesthetic in the form of 1% lidocaine infiltrated at the site of insertion of the catheter Prep& drape was done under the usual sterile technique of right groin area,ultrasound guidance right femoral vein stick showed retrieval of venous blood,then a guidewire was placed through the needle, the guidewire was secured to the drapes with a hemostat and the needle was taken out, 11 blade knife was used to create a skin incision at the site of insertion of the catheter followed by that serial dilators ,the dilator was then taken out, guide wire maintained to be in good position and the hemodialysis catheter 12 Frisian was introduced onto the guidewire, with venous and arterial hubs were flushed and retrieved venous blood without difficulty. Hep-Lock's were then applied 3-0 silk sutures were applied to secure the catheter to the patient's skin TYPE OF PLACEMENT: Temporary dialysis catheter right femoral vein TUNNELED:(NO) IMAGING UTILIZED:~ [Ultrasound guided approach/and interpretation of images done by me through the procedure] Gis Web Developer surgical techmiguel angel Dawn Circulating nurse Ravi ANESTHESIA: [Local lidocaine 1%], Versed and fentanyl were used Anesthesia provider is Dr. Yarelis LYNN Estimated blood loss less than 5 ml No specimen Location ICU I was present for the whole entire procedure Coding Level of Care Code Acute Catholic Priest for [facility] [facility] Diagnoses Acute kidney injury N17.9 Stage 2 pressure ulcer with suspected deep tissue injury L89.92
[2020-03-14] MEDS: dextrose 5% 1,000 ML 75 ML IV ×2 (09:42→22:19)
--- NOTE | 2020-03-14 09:42 | P.ANESASSM_ITS ---
Pre-Anesthetic Assessment Pre-Anesthetic Assessment: Height/Weight: Height 1.85 m Weight 113.398 kg Temp Pulse Resp BP Pulse Ox 99.4 F 94 20 H 86/45 99 03/14/20 08:00 03/14/20 08:00 03/14/20 08:00 03/14/20 08:00 03/14/20 08:00 Social: Social History: Alcohol (quit) and Tobacco (QUIT) Exam: Additional Exam Findings (including area of procedure): Pt has decreased LOC. course BS bilat, Airway: Submandibular: WNL Cervical ROM: WNL MP: 2 History/ROS: No significant history except as noted Pulmonary: Pulmonary: None reported CV/HEM: CV/HEM: None reported : Comments: ARF. H/O stents Hepatic: Hepatic: None reported GI: GI: None reported Metabolic: Comments: sepsis, acidosis Musc/skel: Musc/skel: None reported Neuropsych: Comments: reduced LOC, Anesthetic Plan: ASA status: 5E Anesthesia: Anesthesia Evaluation and MAC Risk of > 500 ml blood loss (7ml/kg in children): No Meds/Allergies Current Medications: Current Medications Generic Name Dose Route Start Last Admin Trade Name Freq PRN Reason Stop Dose Admin Diphenhydramine HC l 25 mg 03/14/20 01:39 03/14/20 01:44 Benadryl PO 25 mg Q6H PRN Administration ITCHING Clindamycin HCl/De xtrose 900 mg in 50 mls @ 100 mls/hr 03/14/20 00:00 03/14/20 03:13 Cleocin IV Infused Q8H DOMENICO Infusion Protocol Aztreonam 1,000 mg / Sodium 50 mls @ 100 mls/ hr 03/13/20 23:30 03/14/20 01:48 Chloride IV Infused Q12H DOMENICO Infusion Protocol Norepinephrine Bit artrate 4 mg 254 mls @ 0 mls/h r 03/13/20 23:13 03/14/20 06:10 / Dextrose IV 30 mls/hr .Q0M PRN Titration hypotension Protocol Per Protocol Sodium Bicarbonate 150 meq/ 1,150 mls @ 150 m ls/hr 03/13/20 23:13 03/14/20 00:37 Dextrose IV 150 mls/hr .[id number] DOMENICO Administration Dextrose 1,000 mls @ 75 ml s/hr 03/14/20 08:45 03/14/20 09:42 D5w IV 75 mls/hr .[id number] DOMENICO Administration Tramadol HCl 50 mg 03/14/20 02:49 03/14/20 02:55 Ultram PO 50 mg Q4H PRN Administration MODERATE PAIN PFSH Anesthesia PFSH: Medical History Former smoker Hernia Nephrolithiasis Pilonidal cyst Sepsis Urolithiasis Left-sided with microscopic hematuria 9 mm Surgical History H/O cystoscopy History of ureter stent After failing medical management Stent placement in 10/10 Family History Other Hypertension Social History Smoking and tobacco status: former smoker Alcohol intake: former Substance/Drug Use: never Lives independently: Yes Household members: other Details: Lives alone, was taking computer repair classes at [employer] Marital status: / Data Anesthesia CBC & Chem 7: 03/14/20 04:29 03/14/20 04:29 Other Labs: Laboratory Results - last 48 hr 03/13/20 03/13/20 03/13/20 17:12 17:19 17:19 WBC 16.2 H RBC 3.47 L Hgb 9.6 L Hct 32.4 L MCV 93.4 MCH 27.7 L MCHC 29.6 L RDW 15.0 Plt Count 290 MPV 9.9 Neut % (Auto) 89.4 Lymph % (Auto) 1.7 Bertie % (Auto) 8.3 Eos % (Auto) 0.1 Baso % (Auto) 0.1 Reticulocyte % (Auto) Neut # (Auto) 14.5 H Lymph # (Auto) 0.3 L Bertie # (Auto) 1.3 H Eos # (Auto) 0.0 Baso # (Auto) 0.0 Nucleated RBC % (auto) 0 Nucleated RBCs # 0.0 PT 17.80 H INR 1.42 H APTT 37.3 H Fibrinogen Fibrin Degrad Products D-Dimer Specimen Type Arterial Sample Site Brachial, left ABG pH 7.21 L ABG pCO2 22.1 L ABG pO2 308.0 H* ABG HCO3 8.9 L ABG O2 Saturation 99.5 ABG Base Excess -17.2 L Siddhartha Test Pos Hematocrit 31.0 L Hgb O2 Saturation 98.3 Carboxyhemoglobin Methemoglobin 1.4 Total Hemoglobin 10.1 L Sodium 151.0 H Potassium 7.1 H Glucose 151.0 H Ionized Calcium 1.3 O2 Delivery Device Nrb O2 Liters/Min 14.0 Agency Sales Management Assistant ID cak Chloride Carbon Dioxide Anion Gap BUN Creatinine GFR Calculation POC Glucose Calculated Osmolality Lactate Calcium Total Bilirubin AST ALT Alkaline Phosphatase Creatine Kinase NT-Pro-B Natriuret Pep Total Protein Albumin Globulin Lipase TSH Urine Color Urine Appearance Urine pH Ur Specific Bend Urine Protein Urine Glucose (UA) Urine Ketones Urine Blood Urine Nitrate Urine Bilirubin Urine Urobilinogen Ur Leukocyte Esterase Urine RBC Urine WBC Ur Squamous Epith Cells Amorphous Sediment Urine Bacteria Urine Mucus Ur Random Sodium Urine Creatinine Blood Type Rho(D) Type 03/13/20 03/13/20 03/13/20 17:19 17:19 17:19 WBC RBC Hgb Hct MCV MCH MCHC RDW Plt Count MPV Neut % (Auto) Lymph % (Auto) Bertie % (Auto) Eos % (Auto) Baso % (Auto) Reticulocyte % (Auto) Neut # (Auto) Lymph # (Auto) Bertie # (Auto) Eos # (Auto) Baso # (Auto) Nucleated RBC % (auto) Nucleated RBCs # PT INR APTT Fibrinogen Fibrin Degrad Products D-Dimer Specimen Type Sample Site ABG pH ABG pCO2 ABG pO2 ABG HCO3 ABG O2 Saturation ABG Base Excess Siddhartha Test Hematocrit Hgb O2 Saturation Carboxyhemoglobin Methemoglobin Total Hemoglobin Sodium 148 H Cancelled Potassium 7.3 H* Cancelled Glucose 151 H Cancelled Ionized Calcium O2 Delivery Device O2 Liters/Min Agency Sales Management Assistant ID Chloride 106 Cancelled Carbon Dioxide 12 L Cancelled Anion Gap 37.3 H Cancelled BUN 268 H* Cancelled Creatinine 19.8 H* Cancelled GFR Calculation 2.4 L Cancelled POC Glucose Calculated Osmolality 319 H Cancelled Lactate 2.0 Calcium 10.8 H Cancelled Total Bilirubin 0.4 AST 21 ALT 18 Alkaline Phosphatase 124 Creatine Kinase 444 H* NT-Pro-B Natriuret Pep 559 H Total Protein 8.7 Albumin 3.8 Globulin 4.9 H Lipase 274 H TSH 0.61 Urine Color Urine Appearance Urine pH Ur Specific Bend Urine Protein Urine Glucose (UA) Urine Ketones Urine Blood Urine Nitrate Urine Bilirubin Urine Urobilinogen Ur Leukocyte Esterase Urine RBC Urine WBC Ur Squamous Epith Cells Amorphous Sediment Urine Bacteria Urine Mucus Ur Random Sodium Urine Creatinine Blood Type Rho(D) Type 03/13/20 03/13/20 03/13/20 17:19 17:48 17:48 WBC RBC Hgb Hct MCV MCH MCHC RDW Plt Count MPV Neut % (Auto) Lymph % (Auto) Bertie % (Auto) Eos % (Auto) Baso % (Auto) Reticulocyte % (Auto) 0.8000 Neut # (Auto) Lymph # (Auto) Bertie # (Auto) Eos # (Auto) Baso # (Auto) Nucleated RBC % (auto) Nucleated RBCs # PT INR APTT Fibrinogen Fibrin Degrad Products D-Dimer Specimen Type Sample Site ABG pH ABG pCO2 ABG pO2 ABG HCO3 ABG O2 Saturation ABG Base Excess Siddhartha Test Hematocrit Hgb O2 Saturation Carboxyhemoglobin Methemoglobin Total Hemoglobin Sodium Potassium Glucose Ionized Calcium O2 Delivery Device O2 Liters/Min Agency Sales Management Assistant ID Chloride Carbon Dioxide Anion Gap BUN Creatinine GFR Calculation POC Glucose Calculated Osmolality Lactate Calcium Total Bilirubin AST ALT Alkaline Phosphatase Creatine Kinase NT-Pro-B Natriuret Pep Total Protein Albumin Globulin Lipase TSH Urine Color Dark yellow Urine Appearance Sl cloudy A Urine pH 5 Ur Specific Bend 1.025 Urine Protein Neg Urine Glucose (UA) Norm Urine Ketones Negative Urine Blood 3+ H Urine Nitrate Negative Urine Bilirubin 1+ H Urine Urobilinogen Norm Ur Leukocyte Esterase Negative Urine RBC 50-80 H Urine WBC 0-4 H Ur Squamous Epith Cells 0-4 H Amorphous Sediment 1+ Urine Bacteria 1+ H Urine Mucus Trace Ur Random Sodium 11 Urine Creatinine 407 H Blood Type Rho(D) Type 03/13/20 03/13/20 03/13/20 20:28 22:35 23:20 WBC RBC Hgb Hct MCV MCH MCHC RDW Plt Count MPV Neut % (Auto) Lymph % (Auto) Bertie % (Auto) Eos % (Auto) Baso % (Auto) Reticulocyte % (Auto) Neut # (Auto) Lymph # (Auto) Bertie # (Auto) Eos # (Auto) Baso # (Auto) Nucleated RBC % (auto) Nucleated RBCs # PT INR APTT Fibrinogen Fibrin Degrad Products D-Dimer Specimen Type Arterial Sample Site Radial, right ABG pH 7.26 L ABG pCO2 26.5 L ABG pO2 159.0 H* ABG HCO3 11.8 L ABG O2 Saturation 98.9 ABG Base Excess -13.9 L Siddhartha Test Pos Hematocrit 25.6 L Hgb O2 Saturation 97.5 Carboxyhemoglobin 0.0 L Methemoglobin 1.4 Total Hemoglobin 8.4 L Sodium 153.0 H 151 H Potassium 5.7 H 6.1 H Glucose 121.0 H 111 Ionized Calcium 1.3 O2 Delivery Device Nrb O2 Liters/Min 12.0 Agency Sales Management Assistant ID [email or web address] Chloride 110 H Carbon Dioxide 13 L Anion Gap 34.1 H BUN 248 H* Creatinine 18.1 H* GFR Calculation 2.7 L POC Glucose 238 Calculated Osmolality 322 H Lactate Calcium 9.8 Total Bilirubin AST ALT Alkaline Phosphatase Creatine Kinase NT-Pro-B Natriuret Pep Total Protein Albumin Globulin Lipase TSH Urine Color Urine Appearance Urine pH Ur Specific [place] Urine Protein Urine Glucose (UA) Urine Ketones Urine Blood Urine Nitrate Urine Bilirubin Urine Urobilinogen Ur Leukocyte Esterase Urine RBC Urine WBC Ur Squamous Epith Cells Amorphous Sediment Urine Bacteria Urine Mucus Ur Random Sodium Urine Creatinine Blood Type Rho(D) Type 03/14/20 03/14/20 03/14/20 04:29 04:29 04:29 WBC 14.4 H RBC 2.37 L Hgb 6.8 L Hct 22.5 L D MCV 94.9 H MCH 28.7 MCHC 30.2 RDW 15.1 Plt Count 253 MPV 10.8 H Neut % (Auto) 88.7 Lymph % (Auto) 2.1 Bertie % (Auto) 8.4 Eos % (Auto) 0.2 Baso % (Auto) 0.0 Reticulocyte % (Auto) Neut # (Auto) 12.8 H Lymph # (Auto) 0.3 L Bertie # (Auto) 1.2 H Eos # (Auto) 0.0 Baso # (Auto) 0.0 Nucleated RBC % (auto) 0 Nucleated RBCs # 0.0 PT 17.90 H INR 1.43 H APTT 32.4 Fibrinogen 638 H Fibrin Degrad Products Pos, 10-40 H D-Dimer 2.04 H Specimen Type Sample Site ABG pH ABG pCO2 ABG pO2 ABG HCO3 ABG O2 Saturation ABG Base Excess Siddhartha Test Hematocrit Hgb O2 Saturation Carboxyhemoglobin Methemoglobin Total Hemoglobin Sodium 152 H Potassium 5.7 H Glucose 141 H Ionized Calcium O2 Delivery Device O2 Liters/Min Agency Sales Management Assistant ID Chloride 112 H Carbon Dioxide 15 L Anion Gap 30.7 H BUN 251 H* Creatinine 18.7 H* GFR Calculation 2.6 L POC Glucose Calculated Osmolality 326 H Lactate Calcium 10.5 Total Bilirubin 0.3 AST 51 H ALT 25 Alkaline Phosphatase 126 Creatine Kinase NT-Pro-B Natriuret Pep Total Protein 7.0 Albumin 2.6 L Globulin 4.4 Lipase TSH Urine Color Urine Appearance Urine pH Ur Specific Bend Urine Protein Urine Glucose (UA) Urine Ketones Urine Blood Urine Nitrate Urine Bilirubin Urine Urobilinogen Ur Leukocyte Esterase Urine RBC Urine WBC Ur Squamous Epith Cells Amorphous Sediment Urine Bacteria Urine Mucus Ur Random Sodium Urine Creatinine Blood Type Rho(D) Type 03/14/20 08:39 WBC RBC Hgb Hct MCV MCH MCHC RDW Plt Count MPV Neut % (Auto) Lymph % (Auto) Bertie % (Auto) Eos % (Auto) Baso % (Auto) Reticulocyte % (Auto) Neut # (Auto) Lymph # (Auto) Bertie # (Auto) Eos # (Auto) Baso # (Auto) Nucleated RBC % (auto) Nucleated RBCs # PT INR APTT Fibrinogen Fibrin Degrad Products D-Dimer Specimen Type Sample Site ABG pH ABG pCO2 ABG pO2 ABG HCO3 ABG O2 Saturation ABG Base Excess Siddhartha Test Hematocrit Hgb O2 Saturation Carboxyhemoglobin Methemoglobin Total Hemoglobin Sodium Potassium Glucose Ionized Calcium O2 Delivery Device O2 Liters/Min Agency Sales Management Assistant ID Chloride Carbon Dioxide Anion Gap BUN Creatinine GFR Calculation POC Glucose Calculated Osmolality Lactate Calcium Total Bilirubin AST ALT Alkaline Phosphatase Creatine Kinase NT-Pro-B Natriuret Pep Total Protein Albumin Globulin Lipase TSH Urine Color Urine Appearance Urine pH Ur Specific [place] Urine Protein Urine Glucose (UA) Urine Ketones Urine Blood Urine Nitrate Urine Bilirubin Urine Urobilinogen Ur Leukocyte Esterase Urine RBC Urine WBC Ur Squamous Epith Cells Amorphous Sediment Urine Bacteria Urine Mucus Ur Random Sodium Urine Creatinine Blood Type A Positive Rho(D) Type Positive Micro: Microbiology 03/14/20 05:59 Occult Blood (FIT) - Final Stool 03/13/20 17:22 Blood Culture - Preliminary Blood SPECIMEN COLLECTED 03/13/20 17:19 Blood Culture - Preliminary Blood SPECIMEN COLLECTED Cardiac Studies: No Data to Display
--- NOTE | 2020-03-14 09:52 | USR_ITS ---
PROCEDURE INFORMATION: Exam: US Duplex Lower Extremity Veins, Bilateral Exam date and time: 03/14/2020 10:32 AM Age: 64 years old Clinical indication: Swelling (edema) of limb; Lower extremity, bilateral; Patient HX: Recent hemodialysis catheter in the right groin area; Additional info: Check for dvt TECHNIQUE: Imaging protocol: Real-time duplex ultrasound of the extremities with 2-D rees scale, color Doppler flow and spectral waveform analysis with image documentation. Complete exam focused on the bilateral lower extremity veins. COMPARISON: No relevant prior studies available. FINDINGS: Right deep veins: Unremarkable. The common femoral, femoral, proximal profunda femoral and popliteal veins are patent without thrombus. Normal Doppler waveforms. Normal compressibility and/or augmentation response. Right superficial veins: Saphenofemoral junction is patent without thrombus. Left deep veins: Unremarkable. The common femoral, femoral, proximal profunda femoral and popliteal veins are patent without thrombus. Normal Doppler waveforms. Normal compressibility and/or augmentation response. Left superficial veins: Saphenofemoral junction is patent without thrombus. Soft tissues: The soft tissues are grossly unremarkable but there are bandages on the calves, ankles and feet . US/[place] [id number] IMPRESSION: No acute findings. No evidence of deep vein thrombosis.
[2020-03-14 10:31] LABS: Ferritin 696 ng/mL (30-400); Iron 24 ug/dL (59-158); Percent Saturation 15.2 % (20-50); Total Iron Binding Capacity 157 mcg/dl; Unsaturated Iron Binding 133 ug/dL (112-347)
[2020-03-14 10:47] LABS: Vitamin B12 838 pg/mL (232-1245)
[2020-03-14 10:47] LABS: Hepatitis B Surface AB 3.5 (0-8.5)
[2020-03-14 10:48] LABS: Hepatitis C Virus Antibody Non-Reactive (Nonreactive)
[2020-03-14 10:57] LABS: Folate Level 10.3 ng/mL (4.5-32.2)
[2020-03-14] MEDS: nystatin cream 30 gm 1 APPLIC TOPICAL (11:52)
[2020-03-14] MEDS: sodium chloride 0.9% (100 ml) 100 ML (11:55)
[2020-03-14 14:13] LABS: Hepatitis B Surface Antigen Non-Reactive (Nonreactive)
[2020-03-14] MEDS: sodium chloride 0.9% (100 ml) 100 ML 10 ML (19:04)
[2020-03-14 19:24] LABS: Glucose Point of Care 180 mg/dL (70-110)
[2020-03-14 22:09] LABS: Eosinophils # 0.2 10^3/uL (0.0-0.8); Eosinophils % 1.8 %; Hematocrit 26.3 % (42.0-52.0); Hemoglobin 8.5 g/dL (11.7-16.6); Lymphocytes # 0.6 10^3/uL (0.8-4.8); Lymphocytes % 5.9 %; Mean Corpuscular Hemoglobin 28.9 pg (28.0-34.0); Mean Platelet Volume 9.9 fL (7.4-10.4); Monocytes # 1.1 10^3/uL (0.2-0.9); Monocytes % 11.4 %; Neutrophils # 8.1 10^3/uL (1.8-7.7); Neutrophils % 80.5 %; Nucleated Red Blood Cells % 0 %; Platelet Count 193 10^3/cmm (130-400); Red Blood Count 2.94 10^6/uL (4.1-5.3); Red Cell Distribution Width 14.9 % (12.1-15.1)
[2020-03-14 22:15] LABS: Mean Corpuscular Volume 89.5 fL (80-94)
[2020-03-14 22:16] LABS: Mean Corpuscular HGB Conc 32.3 g/dL (30.0-36.0)
[2020-03-14 22:22] LABS: Calcium 9.2 mg/dL (8.5-10.5); Carbon Dioxide 25 mmol/L (22-29); Chloride 104 mmol/L (98-107); Glucose 157 mg/dL (65-115); Osmolality Calculated 301 mOsm/kg (285-295); Sodium 143 mmol/L (136-145)
[2020-03-14 22:36] LABS: Blood Urea Nitrogen 105 mg/dL (8-23)
--- NOTE | 2020-03-14 23:13 | USCV_ITS ---
BernardaJulian Age: 64 Gender: M : 1955 Exam Date: 03/14/2020 11:17 Ordering Phys: Hugo Shi MD Technologist: Diana Olmedo Exam Location: [facility] [place] Indication: Septic cardiomyopathy BP: 99 / 60 HR: 97 Rhythm: Sinus Technical Quality: Technically difficult study MEASUREMENTS (Male / Female) Normal Values 2D ECHO LV Diastolic Diameter PLAX 4.5 cm 4.2 - 5.9 / 3.9 - 5.3 cm LV Systolic Diameter PLAX 2.2 cm LV Chamber Size 3.9 cm IVS Diastolic Thickness 1.0 cm 0.6 - 1.0 / 0.6 - 0.9 cm IVS Systolic Thickness 1.5 cm LVPW Diastolic Thickness 0.9 cm 0.6 - 1.0 / 0.6 - 0.9 cm LVPW Systolic Thickness 1.4 cm RV Chamber Size 2.7 cm LVOT Diameter 2.0 cm LV Ejection Fraction 2D Teich 82.5 % LA Diameter 3.6 cm LA Width 2.8 cm LA Height 3.8 cm RA Width 2.8 cm RA Height 4.4 cm Aorta at Sinotubular Diameter 2.8 cm M-MODE LV Diastolic Diameter MM 5.0 cm 4.2 - 5.9 / 3.9 - 5.3 cm LV Systolic Diameter MM 2.5 cm LV Ejection Fraction MM Teich 80.6 % IVS Diastolic Thickness MM 1.3 cm 0.6 - 1.0 / 0.6 - 0.9 cm IVS Systolic Thickness MM 1.7 cm LVPW Diastolic Thickness MM 1.1 cm 0.6 - 1.0 / 0.6 - 0.9 cm LVPW Systolic Thickness MM 1.9 cm Aortic Annulus Diameter 3.2 cm LA Ao Ratio MM 1.1 MV E Point Septal Separation 0.4 cm DOPPLER AV Peak Velocity 157.0 cm/s LVOT Peak Velocity 110.0 cm/s AV Area Cont Eq vti 2.2 cm squared AV Area Cont Eq pk 2.3 cm squared MV Area PHT 3.5 cm squared Mitral E to A Ratio 1.4 MV E' Velocity 14.0 cm/s Mitral E to MV E' Ratio 5.6 Mitral E to LV E' Lateral Ratio 5.2 Mitral E to LV E' Septal Ratio 6.0 TV Peak E Velocity 43.0 cm/s Right Atrial Pressure 3.0 mmHg FINDINGS Left Ventricle Normal left ventricular size and systolic function, EF 65%. No gross wall motion abnormalities. Right Ventricle Normal right ventricular size and systolic function. Right Atrium Possibly of normal size Left Atrium Possibly of normal size Mitral Valve Thickened mitral valve. Aortic Valve Thickened aortic valve. Trace aortic valve regurgitation. Tricuspid Valve No gross abnormalities noted Pulmonic Valve Pulmonic valve not well visualized. Pericardium Normal pericardium without effusion. Aorta Normal ascending aorta dimension. CONCLUSIONS Normal left ventricular size and systolic function, EF 65%. No gross wall motion abnormalities. Thickened aortic valve. Trace aortic valve regurgitation. Thickened mitral valve. There is no pericardial effusion. No previous study is available for comparison. Dr Alexx Hobbs MD FACC (Electronically Signed) Final Date: 14 Mar 2020 14:29 S
[2020-03-14] MEDS: heparin 5,000 unit/mL INJ 1 mL 5000 UNIT SUBCUT (23:22)
--- NOTE | 2020-03-14 23:51 | PC.NURSE ---
PT WAS GIVEN A BED BATH. LINEN WAS CHANGED. PT TOLERATED WELL. PT STILL HAS AN ODOR. NYSTATIN CREAM WAS REAPPLIED. WILL CONTINUE TO MONITOR.
[2020-03-15] VITALS (50 sets, daily range): BP systolic 70–125; BP diastolic 38–59; PULSE 74–90; RESP 13–29; TEMP 36.3–36.7; O2SAT 94–99
[2020-03-15] MEDS: clindamycin 900 MG/50 ML PREMIX 100 MG IV ×3 (00:02→16:49)
[2020-03-15 04:59] LABS: Basophils % 0.1 %; Eosinophils # 0.2 10^3/uL (0.0-0.8); Eosinophils % 1.7 %; Hematocrit 25.9 % (42.0-52.0); Hemoglobin 8.4 g/dL (11.7-16.6); Lymphocytes # 0.5 10^3/uL (0.8-4.8); Lymphocytes % 5.6 %; Mean Corpuscular HGB Conc 32.4 g/dL (30.0-36.0); Mean Corpuscular Hemoglobin 29.1 pg (28.0-34.0); Mean Corpuscular Volume 89.6 fL (80-94); Mean Platelet Volume 9.8 fL (7.4-10.4); Monocytes # 1.1 10^3/uL (0.2-0.9); Monocytes % 11.2 %; Neutrophils # 7.6 10^3/uL (1.8-7.7); Nucleated Red Blood Cells % 0 %; Platelet Count 176 10^3/cmm (130-400); Red Blood Count 2.89 10^6/uL (4.1-5.3); Red Cell Distribution Width 14.9 % (12.1-15.1); White Blood Count 9.4 10^3/uL (4.0-10.0)
[2020-03-15] MEDS: heparin 5,000 unit/mL INJ 1 mL 5000 UNIT SUBCUT ×3 (05:11→21:07)
[2020-03-15 05:12] LABS: Alanine Aminotransferase 24 U/L (0-41); Albumin Level 2.8 g/dL (3.5-5.2); Alkaline Phosphatase 113 IU/L (40-130); Anion Gap 17.9 (5-19); Aspartate Amino Transferase 44 U/L (0-40); Calcium 9.3 mg/dL (8.5-10.5); Carbon Dioxide 26 mmol/L (22-29); Chloride 103 mmol/L (98-107); Globulin 3.9 g/dL (1.3-4.6); Glomerular Filtration Rate 8.1 mL/min (90-130); Glucose 173 mg/dL (65-115); Osmolality Calculated 301 mOsm/kg (285-295); Potassium 3.9 mmol/L (3.5-5.1); Sodium 143 mmol/L (136-145); Total Bilirubin 0.5 mg/dL (0.15-1.2); Total Protein 6.7 g/dL (6.6-8.7)
[2020-03-15 05:40] LABS: Blood Urea Nitrogen 101 mg/dL (8-23)
[2020-03-15 05:41] LABS: Creatine Phosphokinase 891 U/L (39-308)
--- NOTE | 2020-03-15 06:57 | PM.PN ---
Subjective Subjective: Interval history: Patient started to show signs of clinical improvement and he is more awake and oriented Vitals/I&O/Wt Last Vital Signs Temp 98.1 F 03/15/20 06:00 Pulse 85 03/15/20 06:00 Resp 23 H 03/15/20 06:00 BP 97/50 03/15/20 06:00 Pulse Ox 95 03/15/20 06:00 03/14/20 03/14/20 03/15/20 14:59 22:59 06:59 Intake Total 223.5 / 223.5 1540.25 / 1763.75 274 / 2037.75 Output Total 950 / 950 800 / 1750 1250 / 3000 Balance -726.5 / -726.5 740.25 / 13.75 -976 / -962.25 Weight last 48 hrs Weight 250 lb Physical Exam Narrative: EXAM NARRATIVE: Patient is conscious alert BMI 33 Head and neck examination PERRLA no masses no cervical lymphadenopathy no jaundice Abdomen nontender nondistended soft no organomegaly guarding or rigidity/no signs of peritonitis Right groin catheter in place without complication Bilateral lower extremity chronic venous ulcers Urinary Catheter Management^: Narayan: Cath Placed During This Visit: yes Reason for Continuing Indwelling Catheter: Accurate Measurement of Urinary Output in Critically Ill Patients Urinary Catheter Date of Insertion: 03/14/20 Data : 03/15/20 04:44 03/15/20 04:44 Micro: Microbiology 03/13/20 17:19 Blood Culture - Preliminary Blood Gram positive cocci 03/13/20 17:22 Blood Culture - Preliminary Blood NEGATIVE TO DATE 03/14/20 05:59 Occult Blood (FIT) - Final Stool A&P Assessment and plan (1) Acute kidney injury: Continue to follow on nephrology recommendations Status: Acute (2) Stage 2 pressure ulcer with suspected deep tissue injury: Application of Santyl daily followed by OPTi foam Status: Acute (3) Chronic venous hypertension w/ulcer and inflammation involv both sides: Recommend to obtain arterial duplex bilateral Application of Santyl daily on any denuded skin surfaces Once we have segmental pressures likely the patient would benefit from pressure stockings on both lower extremities We will plan to address ingrowing nails at a later time Status: Acute Attestations Medical Necessity Statement*: Per hospitalist Time Spent in Patient Care: (>than 50% of time spent in counselling and/or direct pt care on unit). Coding Level of Care Code Acute Jig And Fixture Repairer for Chg Fwd Diagnoses Acute kidney injury N17.9 Stage 2 pressure ulcer with suspected deep tissue injury L89.92 Chronic venous hypertension w/ulcer and inflammation involv both sides I87.333; L97.919; L97.929
[2020-03-15 07:51] LABS: Glucose Point of Care 184 mg/dL (70-110)
--- NOTE | 2020-03-15 09:35 | PM.PN ---
Subjective Subjective: Interval history: Feels a little better today, stronger, no overt uremic Sx, no edema and no other volume assoc Sx. Still having some nausea with eating and drinking. Passing urine via Narayan, 300ml so far today. No pain. Medications: Reviewed: Yes Vitals/I&O/Wt Last Vital Signs Temp 97.4 F L 03/15/20 08:00 Pulse 85 03/15/20 06:00 Resp 23 H 03/15/20 06:00 BP 97/50 03/15/20 06:00 Pulse Ox 95 03/15/20 06:00 03/14/20 03/15/20 03/15/20 22:59 06:59 14:59 Intake Total 1540.25 / 1763.75 324 / 2087.75 59 / 59 Output Total 800 / 1750 1250 / 3000 Balance 740.25 / 13.75 -926 / -912.25 59 / Weight last 48 hrs Weight 113.398 kg Physical Exam Narrative: EXAM NARRATIVE: Telemed eval with aid of bedside RN BMI 33 Head and neck examination PERRLA no masses no cervical lymphadenopathy no jaundice Abdomen nontender nondistended soft no organomegaly guarding or rigidity/no signs of peritonitis Right groin catheter in place without complication Bilateral lower extremity chronic venous ulcers Const: COMMON NORMALS: no apparent distress (In pain when moved.); negative for oriented x3 EXAM LIMITATIONS: altered mental status GENERAL APPEARANCE: disheveled, lethargic and appears older than stated age ORIENTATION/CONSCIOUSNESS: Yes confused and Yes lethargic HENMT: COMMON NORMALS: normocephalic, head/scalp atraumatic, hearing grossly normal bilaterally, external ears normal and oropharynx normal HEAD & SCALP: normocephalic and atraumatic EXTERNAL EAR: Yes external ears normal Neck/C-Spine: COMMON NORMALS: full ROM, no lymphadenopathy, supple and no JVD Resp: COMMON NORMALS: normal respiratory effort, no retractions, no use of accessory muscles and clear to auscultation bilaterally AUSCULTATION: clear to auscultation bilaterally Cardio: COMMON NORMALS: no JVD, regular rate, regular rhythm, S1 normal heart sound, S2 normal heart sound and no murmurs RATE: regular rate RHYTHM: regular rhythm HEART SOUNDS: S1 normal and S2 normal GI: COMMON NORMALS: normal to inspection, nondistended, normoactive bowel sounds, soft to palpation, non-tender and no hepatosplenomegaly AUSCULTATION: Yes normoactive bowel sounds PALPATION: Yes soft, No tender, No guarding and Yes no hepatosplenomegaly Extremity: COMMON NORMALS: no joint enlargement NARRATIVE EXTREMITY EXAM: Extremely overgrown toenails bilaterally. GENERAL: Yes edema (2+) Neuro: COMMON NORMALS: moves all extremities; negative for oriented x3 SENSORIUM/ORIENTATION: Yes lethargic Skin: COMMON NORMALS: no rashes or lesions noted GENERAL SKIN EXAM: no rashes or lesions noted LESIONS: lesion noted (Extensive shallow ulcerations on bilateral lower extremities, with chronic venous stasis changes, currently with also superimposed cellulitis) Urinary Catheter Management^: Narayan: Cath Placed During This Visit: yes Reason for Continuing Indwelling Catheter: Accurate Measurement of Urinary Output in Critically Ill Patients Urinary Catheter Date of Insertion: 03/14/20 Data : 03/15/20 04:44 03/15/20 04:44 Micro: Microbiology 03/13/20 17:19 Blood Culture - Preliminary Blood Gram positive cocci 03/13/20 17:22 Blood Culture - Preliminary Blood NEGATIVE TO DATE 03/14/20 05:59 Occult Blood (FIT) - Final Stool A&P Additional A&P Information 1. PEREZ - severe PEREZ from pre-renal state that has likely led to some degree of ATN. Some retention of sodium avidity and UO ok and so these are good prognosticators - no acute need for dialysis today - monitor closely with eval in the am for additional need - am labs - avoid the usuals 2. Lytes look good 3. Pneumonia and UTI - GPCs in the blood, final isolate pending - Vanco, Azxtreonam, Clinda on board 4. Hemodynamics soft but generally stable Attestations Medical Necessity Statement*: Eval for renal failure Coding Level of Care Code Acute Employee Communications Coordinator for Hossein Pan
--- NOTE | 2020-03-15 10:03 | PM.PN ---
Subjective Subjective: Interval history: Awakens easily. Reports he is nauseated. No chest pain, or shortness of breath. History and physical reviewed. Medications: Reviewed: Yes Vitals/I&O/Wt Last Vital Signs Temp 97.4 F L 03/15/20 08:00 Pulse 85 03/15/20 06:00 Resp 23 H 03/15/20 06:00 BP 97/50 03/15/20 06:00 Pulse Ox 95 03/15/20 06:00 03/14/20 03/15/20 03/15/20 22:59 06:59 14:59 Intake Total 1540.25 / 1763.75 324 / 2087.75 59 / 59 Output Total 800 / 1750 1250 / 3000 Balance 740.25 / 13.75 -926 / -912.25 Weight last 48 hrs Weight 113.398 kg Physical Exam Narrative: EXAM NARRATIVE: General exam demonstrates a conversive white male, no obvious distress. Cardiovascular regular rate and rhythm without murmur Lungs few coarse breath sounds at the bases Abdomen is soft with positive bowel sounds demonstrates right groin dialysis catheter Extremities, dressings in place. Trace edema. Refill less than 2 seconds. Urinary Catheter Management^: Narayan: Cath Placed During This Visit: yes Reason for Continuing Indwelling Catheter: Accurate Measurement of Urinary Output in Critically Ill Patients Urinary Catheter Date of Insertion: 03/14/20 Data : 03/15/20 04:44 03/15/20 04:44 Micro: Microbiology 03/13/20 17:19 Blood Culture - Preliminary Blood Gram positive cocci 03/13/20 17:22 Blood Culture - Preliminary Blood NEGATIVE TO DATE 03/14/20 05:59 Occult Blood (FIT) - Final Stool A&P Assessment and plan (1) Septic shock: Hypotensive on presentation. Still requiring norepinephrine Currently on vancomycin, aztreonam, clindamycin. Blood culture 1/4 bottles gram-positive cocci. Will repeat Etiology possible pneumonia versus cellulitis lower extremities Status: Acute (2) Cellulitis: Acute on chronic Continue vancomycin, aztreonam, clindamycin Check arterial ultrasound Wound care per surgery Status: Acute (3) Acute kidney injury: May be acute on chronic Hemodialysis per nephrology Mild rhabdo noted Status: Acute (4) Hyperkalemia: Resolved currently Status: Acute (5) Metabolic acidosis: Improved Status: Acute (6) Hematuria: Mild. Potentially could be secondary to nephrolithiasis versus Narayan placement Status: Acute (7) Perineal abrasion: Nystatin cream Status: Acute (8) Normocytic anemia: Iron deficient. Received 1 unit of packed red blood cells with good improvement of hemoglobin. Stool Hemoccult negative. B12 and folate levels normal. Status: Acute Additional A&P Information Sacral wound. Dressing changes, surgery following Slightly elevated INR Type 2 diabetes, sliding scale insulin Lower extremity swelling. Venous duplex negative. Secondary to ulcers arterial duplex will be done Hyponatremia, resolved Mild elevation of lipase. Doubt pancreatitis DVT prophylaxis. SCDs cannot be done currently secondary to lower extremity wounds. Secondary to significant anemia pharmacologic has been held. Will reevaluate and consider subcutaneous heparin, low-dose tomorrow if no worsening of hemoglobin Attestations Medical Necessity Statement*: Needs continued hospitalization for IV antibiotics secondary to sepsis, close follow-up of renal function Critical Care Time: 41 minutes spent in critical care time reviewing case, interviewing the patient, reviewing record, evaluation of IV pressors, etc. Coding Level of Care Code Acute Animal Physiologist for [facility] Fwd Diagnoses Septic shock A41.9; R65.21 Cellulitis L03.90 Acute kidney injury N17.9 Hyperkalemia E87.5 Metabolic acidosis E87.2 Hematuria R31.9 Perineal abrasion Normocytic anemia D64.9
--- NOTE | 2020-03-15 10:07 | USCV_ITS ---
Julian Menchaca Age: 64 Gender: M : 1955 Exam Date: 03/15/2020 16:02 Ordering Phys: Ander Nolasco MD Technologist: Major Bar [place]am [place] [facility] [place]: ULCERS Risk Factors: Unknown Previous Vascular Surgery: RIGHT LEFT BP: 100.0 / 54.00 BP: 100.0/ 55.00 0 0 Waveform Velocity (cm/s) Velocity (cm/s) Waveform Triphasic 133.6 Iliac Prox 76.1 Triphasic Triphasic 147.6 Iliac Mid 75.2 Triphasic Triphasic 161.6 Iliac Distal 82.3 Triphasic Biphasic 160.0 STRAP FOLDING MACHINE OPERATOR 75.2 Biphasic Biphasic 113.4 SFA Prox 87.6 Biphasic Biphasic 138.3 SFA Mid 90.2 Biphasic Biphasic 125.8 SFA Dist 81.4 Biphasic Biphasic 99.4 POP 89.3 Monophasic Monophasic 18.5 LO[employer]ER [employer] HORSES 19.0 Monophasic Monophasic 24.0 DPA 46.9 Monophasic EPI 0.9 0.9 FINDINGS Mild diffuse plaques in the iliac and femoral arteries bilaterally. Slightly diminished resting ABIs bilaterally. CONCLUSIONS 1. Minimally diminished resting ABIs bilaterally, suggestive of mild peripheral artery disease. 2. Abnormal arterial Doppler waveforms, may suggest popliteal disease bilaterally Dr Alexx Hobbs MD [facility] (Electronically Signed) Final Date: 15 Mar 2020 18:29 S
[2020-03-15] MEDS: aztreonam 1,000 MG in sodium chloride 0.9% (plus) 50 ML 100 MG IV ×2 (11:07→22:39)
[2020-03-15] MEDS: dextrose 5% 1,000 ML 75 ML IV (11:08)
[2020-03-15 11:12] LABS: Glucose Point of Care 163 mg/dL (70-110)
[2020-03-15] MEDS: nystatin cream 30 gm 1 APPLIC TOPICAL ×2 (11:15→17:57)
[2020-03-15 17:51] LABS: Vancomycin Trough 10.9 ug/mL (10-15)
[2020-03-15 17:56] LABS: Glucose Point of Care 159 mg/dL (70-110)
[2020-03-15] MEDS: ondansetron 2 mg/ML SDV 2 mL 4 MG IVP (22:39)
[2020-03-16] VITALS (44 sets, daily range): BP systolic 76–128; BP diastolic 41–63; PULSE 69–96; RESP 12–32; TEMP 36.6–38.1; O2SAT 90–97
[2020-03-16] MEDS: dextrose 5% 1,000 ML 75 ML IV ×2 (00:33→15:52)
[2020-03-16] MEDS: clindamycin 900 MG/50 ML PREMIX 100 MG IV ×3 (00:33→16:57)
[2020-03-16 05:45] LABS: Basophils % 0.1 %; Eosinophils # 0.3 10^3/uL (0.0-0.8); Hematocrit 25.9 % (42.0-52.0); Hemoglobin 8.2 g/dL (11.7-16.6); Lymphocytes # 0.7 10^3/uL (0.8-4.8); Lymphocytes % 7.8 %; Mean Corpuscular HGB Conc 31.7 g/dL (30.0-36.0); Mean Corpuscular Hemoglobin 29.3 pg (28.0-34.0); Mean Corpuscular Volume 92.5 fL (80-94); Mean Platelet Volume 9.7 fL (7.4-10.4); Monocytes % 11.5 %; Neutrophils # 6.7 10^3/uL (1.8-7.7); Neutrophils % 76.9 %; Nucleated Red Blood Cells % 0 %; Platelet Count 167 10^3/cmm (130-400); Red Cell Distribution Width 14.5 % (12.1-15.1); White Blood Count 8.7 10^3/uL (4.0-10.0)
[2020-03-16] MEDS: heparin 5,000 unit/mL INJ 1 mL 5000 UNIT SUBCUT ×3 (05:49→21:17)
[2020-03-16 06:28] LABS: Alanine Aminotransferase 20 U/L (0-41); Albumin Level 2.7 g/dL (3.5-5.2); Alkaline Phosphatase 101 IU/L (40-130); Anion Gap 17.5 (5-19); Aspartate Amino Transferase 32 U/L (0-40); Calcium 8.6 mg/dL (8.5-10.5); Carbon Dioxide 26 mmol/L (22-29); Chloride 102 mmol/L (98-107); Globulin 3.8 g/dL (1.3-4.6); Glomerular Filtration Rate 17.1 mL/min (90-130); Glucose 156 mg/dL (65-115); Osmolality Calculated 298 mOsm/kg (285-295); Potassium 3.5 mmol/L (3.5-5.1); Sodium 142 mmol/L (136-145); Total Bilirubin 0.4 mg/dL (0.15-1.2); Total Protein 6.5 g/dL (6.6-8.7)
[2020-03-16 06:32] LABS: Blood Urea Nitrogen 93 mg/dL (8-23)
[2020-03-16 08:13] LABS: Glucose Point of Care 163 mg/dL (70-110)
--- NOTE | 2020-03-16 09:13 | PM.PN ---
Subjective Subjective: Interval history: Julian reports he feels a lot better than yesterday. No chest pain or shortness of breath. Medications: Reviewed: Yes Vitals/I&O/Wt Last Vital Signs Temp 98.2 F 03/16/20 00:00 Pulse 84 03/16/20 06:30 Resp 20 H 03/16/20 06:30 BP 112/53 03/16/20 06:30 Pulse Ox 94 03/16/20 06:30 03/15/20 03/16/20 03/16/20 22:59 06:59 14:59 Intake Total 293.5 / 1667.75 1228 / 2895.75 Output Total 2300 / 2300 Balance 293.5 / 1667.75 -1072 / 595.75 Physical Exam Narrative: EXAM NARRATIVE: General exam no distress Cardiovascular regular rate and rhythm without murmur Lungs few coarse breath sounds at the bases Abdomen is soft with positive bowel sounds demonstrates right groin dialysis catheter Extremities, dressings in place. No edema Urinary Catheter Management^: Narayan: Cath Placed During This Visit: yes Reason for Continuing Indwelling Catheter: Accurate Measurement of Urinary Output in Critically Ill Patients Urinary Catheter Date of Insertion: 03/14/20 Data : 03/16/20 05:35 03/16/20 05:35 Micro: Microbiology 03/16/20 05:35 Blood Culture - Preliminary Blood SPECIMEN COLLECTED 03/16/20 05:30 Blood Culture - Preliminary Blood SPECIMEN COLLECTED 03/15/20 15:54 Occult Blood (FIT) - Final Stool 03/13/20 17:48 Urine Culture - Preliminary Urine Catheterized A&P Assessment and plan (1) Septic shock: Hypotensive on presentation. Still requiring norepinephrine. Try to wean again today Currently on vancomycin, aztreonam, clindamycin. Blood culture / bottles gram-positive cocci. Final still pending. Repeat culture was drawn. Etiology possible pneumonia versus cellulitis lower extremities Status: Acute (2) Cellulitis: Acute on chronic Continue vancomycin, aztreonam, clindamycin Concern for peripheral vascular disease existed. ABIs minimally decreased Wound care per surgery Status: Acute (3) Acute kidney injury: May be acute on chronic Hemodialysis per nephrology Renal function does appear to be improving. Mild rhabdo was noted but no need for further CK at this time Status: Acute (4) Hyperkalemia: Resolved currently Status: Acute (5) Metabolic acidosis: Resolved Status: Acute (6) Hematuria: Mild. Potentially could be secondary to nephrolithiasis versus Narayan placement Status: Acute (7) Perineal abrasion: Nystatin cream Status: Acute (8) Normocytic anemia: Iron deficient. Received 1 unit of packed red blood cells with good improvement of hemoglobin. Initial stool Hemoccult negative. Subsequent one positive. On low-dose heparin for DVT prophylaxis. Pepcid added. B12 and folate levels normal. Status: Acute Additional A&P Information Sacral wound. Dressing changes, surgery following Slightly elevated INR Type 2 diabetes, sliding scale insulin Lower extremity swelling. Venous duplex negative. EPI slightly diminished Hyponatremia, resolved Mild elevation of lipase. Doubt pancreatitis DVT prophylaxis. SCDs cannot be done currently secondary to lower extremity wounds. Low-dose heparin, monitoring hemoglobin closely Attestations Medical Necessity Statement*: Needs continued hospitalization secondary to sepsis requiring IV pressors Critical Care Time: 30 minutes of critical care ICU time including evaluation of patient, review of drips including norepinephrine, review with nurse current blood pressures and plan for the day. Coding Level of Care Code Acute Associate Professor Of History for [facility] Fwd Diagnoses Septic shock A41.9; R65.21 Cellulitis L03.90 Acute kidney injury N17.9 Hyperkalemia E87.5 Metabolic acidosis E87.2 Hematuria R31.9 Perineal abrasion Normocytic anemia D64.9
[2020-03-16] MEDS: famotidine 20 mg Tablet PO ×2 (09:15→16:57)
[2020-03-16] MEDS: nystatin cream 30 gm 1 APPLIC TOPICAL ×2 (09:16→17:06)
[2020-03-16] MEDS: collagenase oint 30 gm 1 APPLIC TOPICAL (09:55)
--- NOTE | 2020-03-16 10:21 | PM.PN ---
Subjective Subjective: Interval history: Patient seems to be clinically improving and responding to conservative measures Vitals/I&O/Wt Last Vital Signs Temp 98.2 F 03/16/20 00:00 Pulse 84 03/16/20 06:30 Resp 20 H 03/16/20 06:30 BP 112/53 03/16/20 06:30 Pulse Ox 94 03/16/20 06:30 03/15/20 03/16/20 03/16/20 22:59 06:59 14:59 Intake Total 293.5 / 1667.75 1278 / 2945.75 Output Total 2300 / 2300 Balance 293.5 / 1667.75 -1022 / 645.75 Physical Exam Narrative: EXAM NARRATIVE: Patient is conscious alert oriented X3 BMI 33 Head and neck examination PERRLA no masses no cervical lymphadenopathy no jaundice Abdomen nontender nondistended soft no organomegaly guarding or rigidity/no signs of peritonitis Right groin femoral catheter in place without complication Extremities continues to show chronic venous stasis with associated venous ulcers without cellulitis Urinary Catheter Management^: Narayan: Cath Placed During This Visit: yes Reason for Continuing Indwelling Catheter: Accurate Measurement of Urinary Output in Critically Ill Patients Urinary Catheter Date of Insertion: 03/14/20 Data : 03/16/20 05:35 03/16/20 05:35 Micro: Microbiology 03/16/20 05:35 Blood Culture - Preliminary Blood SPECIMEN COLLECTED 03/16/20 05:30 Blood Culture - Preliminary Blood SPECIMEN COLLECTED 03/15/20 15:54 Occult Blood (FIT) - Final Stool 03/13/20 17:48 Urine Culture - Preliminary Urine Catheterized A&P Assessment and plan (1) Acute kidney injury: Continue to follow on nephrology recommendations I Did discuss the case with Dr. Espinosa and he recommended to hold off removing of the right femoral vein dialysis catheter for reevaluation tomorrow Status: Acute (2) Stage 2 pressure ulcer with suspected deep tissue injury: Application of Santyl daily followed by OPTi foam Status: Acute (3) Chronic venous hypertension w/ulcer and inflammation involv both sides: As arterial duplex showed mild peripheral arterial disease Application of Santyl daily on any denuded skin surfaces Application of bilateral JUZO per physical tehrapy Status: Acute Attestations Medical Necessity Statement*: Per hospitalist service Time Spent in Patient Care: 16 - 35 minutes (>than 50% of time spent in counselling and/or direct pt care on unit). Coding Level of Care Code Acute Attending Anesthesiologist for [facility] Fwd Diagnoses Acute kidney injury N17.9 Stage 2 pressure ulcer with suspected deep tissue injury L89.92 Chronic venous hypertension w/ulcer and inflammation involv both sides I87.333; L97.919; L97.929
--- NOTE | 2020-03-16 11:42 | PM.ACPR ---
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 Nails of the left second and third toes were sent for pathology. Patient tolerated the procedure well I was present for the whole entire procedure Complications: No immediate complications EBL:none Specimens: Left second and third toe nails. Surgeon Reed Foster MD Medical Affairs Specialist KINSE[facility] Hernandez Location ICU bedside
[2020-03-16 12:14] LABS: Glucose Point of Care 139 mg/dL (70-110)
[2020-03-16] MEDS: aztreonam 1,000 MG in sodium chloride 0.9% (plus) 50 ML 100 MG IV (12:23)
--- NOTE | 2020-03-16 14:05 | P.PN_ITS ---
Subjective Subjective: Interval history: No new issues, he is gradually improving, more cognizant/lucid today, breathing comfortably. Passing a good amount of urine. No edema/hypervol sx and no uremic Sx Medications: Reviewed: Yes Vitals/I&O/Wt Last Vital Signs Temp 98.2 F 03/16/20 00:00 Pulse 84 03/16/20 06:30 Resp 20 H 03/16/20 06:30 BP 112/53 03/16/20 06:30 Pulse Ox 94 03/16/20 06:30 03/15/20 03/16/20 03/16/20 22:59 06:59 14:59 Intake Total 293.5 / 1667.75 1328 / 2995.75 50 / 50 Output Total 2300 / 2300 Balance 293.5 / 1667.75 -972 / 695.75 50 / 50 Physical Exam Narrative: EXAM NARRATIVE: Telemed eval with aid of bedside RN BMI 33 Head and neck examination PERRLA no masses no cervical lymphadenopathy no jaundice Abdomen nontender nondistended soft no organomegaly guarding or rigidity/no signs of peritonitis Right groin catheter in place without complication Bilateral lower extremity chronic venous ulcers Const: COMMON NORMALS: no apparent distress (In pain when moved.); negative for oriented x3 EXAM LIMITATIONS: altered mental status GENERAL APPEARANCE: disheveled, lethargic and appears older than stated age ORIENTATION/CONSCIOUSNESS: Yes confused and Yes lethargic HENMT: COMMON NORMALS: normocephalic, head/scalp atraumatic, hearing grossly normal bilaterally, external ears normal and oropharynx normal HEAD & SCALP: normocephalic and atraumatic EXTERNAL EAR: Yes external ears normal Neck/C-Spine: COMMON NORMALS: full ROM, no lymphadenopathy, supple and no JVD Resp: COMMON NORMALS: normal respiratory effort, no retractions, no use of accessory muscles and clear to auscultation bilaterally AUSCULTATION: clear to auscultation bilaterally Cardio: COMMON NORMALS: no JVD, regular rate, regular rhythm, S1 normal heart sound, S2 normal heart sound and no murmurs RATE: regular rate RHYTHM: regular rhythm HEART SOUNDS: S1 normal and S2 normal GI: COMMON NORMALS: normal to inspection, nondistended, normoactive bowel sounds, soft to palpation, non-tender and no hepatosplenomegaly AUSCULTATION: Yes normoactive bowel sounds PALPATION: Yes soft, No tender, No guarding and Yes no hepatosplenomegaly Extremity: COMMON NORMALS: no joint enlargement NARRATIVE EXTREMITY EXAM: Extremely overgrown toenails bilaterally. GENERAL: Yes edema (2+) Neuro: COMMON NORMALS: moves all extremities; negative for oriented x3 SENSORIUM/ORIENTATION: Yes lethargic Skin: COMMON NORMALS: no rashes or lesions noted GENERAL SKIN EXAM: no rashes or lesions noted LESIONS: lesion noted (Extensive shallow ulcerations on bilateral lower extremities, with chronic venous stasis changes, currently with also superimposed cellulitis) Urinary Catheter Management^: Narayan: Cath Placed During This Visit: yes Reason for Continuing Indwelling Catheter: Accurate Measurement of Urinary Output in Critically Ill Patients Urinary Catheter Date of Insertion: 03/14/20 Data : 03/16/20 05:35 03/16/20 05:35 Micro: Microbiology 03/16/20 05:35 Blood Culture - Preliminary Blood SPECIMEN COLLECTED 03/16/20 05:30 Blood Culture - Preliminary Blood SPECIMEN COLLECTED 03/15/20 15:54 Occult Blood (FIT) - Final Stool 03/13/20 17:48 Urine Culture - Preliminary Urine Catheterized A&P Additional A&P Information 1. PEREZ - severe PEREZ from pre-renal state that has likely led to some degree of ATN. Some retention of sodium avidity and UO ok and so these are good prognosticators - no acute need for dialysis today and if creatinine down tomorrow will DC fem HD cath - monitor closely with eval in the am for additional need - am labs - avoid the usuals 2. Lytes look good 3. Pneumonia and UTI - GPCs in the blood, final isolate pending - Vanco, Azxtreonam, Clinda on board 4. Hemodynamics soft but generally stable - doing progressively better Attestations Medical Necessity Statement*: eval for PEREZ Coding Level of Care Code Acute Heat Pump Installer for Hossein Pan
--- NOTE | 2020-03-16 16:11 | PC.NURSE ---
IV sites: Changed te documentation to reflect the correct side of the IV in hand. It is in the Left.
[2020-03-16 16:57] LABS: Glucose Point of Care 155 mg/dL (70-110)
[2020-03-17] VITALS (47 sets, daily range): BP systolic 71–119; BP diastolic 38–60; PULSE 73–102; RESP 15–37; TEMP 36.8–37.2; O2SAT 90–100
[2020-03-17] MEDS: aztreonam 1,000 MG in sodium chloride 0.9% (plus) 50 ML 100 MG IV (00:02)
[2020-03-17] MEDS: dextrose 5% 1,000 ML 75 ML IV ×3 (00:02→23:57)
[2020-03-17] MEDS: clindamycin 900 MG/50 ML PREMIX 100 MG IV ×2 (00:03→07:46)
[2020-03-17 05:34] LABS: Basophils % 0.1 %; Eosinophils # 0.3 10^3/uL (0.0-0.8); Eosinophils % 3.5 %; Hematocrit 26.4 % (42.0-52.0); Hemoglobin 8.1 g/dL (11.7-16.6); Lymphocytes # 0.5 10^3/uL (0.8-4.8); Lymphocytes % 6.1 %; Mean Corpuscular HGB Conc 30.7 g/dL (30.0-36.0); Mean Corpuscular Volume 94.6 fL (80-94); Mean Platelet Volume 10.2 fL (7.4-10.4); Monocytes # 1.1 10^3/uL (0.2-0.9); Monocytes % 12.9 %; Neutrophils # 6.3 10^3/uL (1.8-7.7); Neutrophils % 76.2 %; Nucleated Red Blood Cells % 0 %; Platelet Count 152 10^3/cmm (130-400); Red Blood Count 2.79 10^6/uL (4.1-5.3); Red Cell Distribution Width 14.1 % (12.1-15.1); White Blood Count 8.2 10^3/uL (4.0-10.0)
[2020-03-17 06:11] LABS: Alanine Aminotransferase 17 U/L (0-41); Albumin Level 2.7 g/dL (3.5-5.2); Alkaline Phosphatase 91 IU/L (40-130); Anion Gap 16.7 (5-19); Aspartate Amino Transferase 29 U/L (0-40); Blood Urea Nitrogen 69 mg/dL (8-23); Calcium 8.5 mg/dL (8.5-10.5); Carbon Dioxide 27 mmol/L (22-29); Chloride 102 mmol/L (98-107); Globulin 3.9 g/dL (1.3-4.6); Glucose 125 mg/dL (65-115); Osmolality Calculated 295 mOsm/kg (285-295); Potassium 3.7 mmol/L (3.5-5.1); Sodium 142 mmol/L (136-145); Total Bilirubin 0.3 mg/dL (0.15-1.2); Total Protein 6.6 g/dL (6.6-8.7)
[2020-03-17] MEDS: heparin 5,000 unit/mL INJ 1 mL 5000 UNIT SUBCUT (07:47)
[2020-03-17] MEDS: famotidine 20 mg Tablet PO ×2 (07:47→17:27)
[2020-03-17] MEDS: nystatin cream 30 gm 1 APPLIC TOPICAL ×2 (07:55→17:27)
--- NOTE | 2020-03-17 08:48 | P.PN_ITS ---
Subjective Subjective: Interval history: Julian reports he is feeling okay. No nausea. Medications: Reviewed: Yes Vitals/I&O/Wt Last Vital Signs Temp 98.9 F 03/17/20 00:00 Pulse 79 03/17/20 06:00 Resp 19 H 03/17/20 06:00 BP 108/52 03/17/20 06:00 Pulse Ox 97 03/17/20 06:00 03/16/20 03/17/20 03/17/20 22:59 06:59 14:59 Intake Total 68.15 / 1237.15 662.5 / 1899.65 Output Total 1000 / 1000 2200 / 3200 Balance -931.85 / 237.15 -1537.5 / -1300.35 Physical Exam Narrative: EXAM NARRATIVE: General exam no distress Cardiovascular regular rate and rhythm without murmur Lungs few coarse breath sounds at the bases Abdomen is soft with positive bowel sounds demonstrates right groin dialysis catheter Extremities, dressings in place. No edema Urinary Catheter Management^: Narayan: Cath Placed During This Visit: yes Reason for Continuing Indwelling Catheter: Accurate Measurement of Urinary Output in Critically Ill Patients Urinary Catheter Date of Insertion: 03/14/20 Data : 03/17/20 04:05 03/17/20 04:05 Micro: Microbiology 03/16/20 05:35 Blood Culture - Preliminary Blood NEGATIVE TO DATE 03/16/20 05:30 Blood Culture - Preliminary Blood NEGATIVE TO DATE 03/13/20 17:48 Urine Culture - Final Urine Catheterized 03/13/20 17:19 Blood Culture - Preliminary Blood Gram positive cocci Corynebacter pseudotuberculosi A&P Assessment and plan (1) Septic shock: Hypotensive on presentation. Norepinephrine has been discontinued. Blood pressure slightly low. We will give a small bolus of 250 cc. He has been diuresing significantly as his renal function has been improving Currently on vancomycin, aztreonam, clindamycin. Blood culture 1/4 bottles gram-positive cocci. Appears to be contaminant. Repeat cultures negative. Etiology possible pneumonia versus cellulitis lower extremities De-escalate antibiotics today by discontinuation of aztreonam and clindamycin. Addition of oral Levaquin Status: Acute (2) Cellulitis: Acute on chronic Continue vancomycin, aztreonam, clindamycin Concern for peripheral vascular disease existed. ABIs minimally decreased Wound care per surgery Status: Acute (3) Acute kidney injury: May be acute on chronic Hemodialysis per nephrology Renal function does appear to be improving. Mild rhabdo was noted but no need for further CK at this time. Hemodialysis is not needed at this time. Likely dialysis catheter will be removed today. Status: Acute (4) Hyperkalemia: Resolved currently Status: Acute (5) Metabolic acidosis: Resolved Status: Acute (6) Hematuria: Mild. Potentially could be secondary to nephrolithiasis versus Narayan placement Status: Acute (7) Perineal abrasion: Nystatin cream Status: Acute (8) Normocytic anemia: Iron deficient. Received 1 unit of packed red blood cells with good improvement of hemoglobin. Initial stool Hemoccult negative. Subsequent one positive. On low-dose heparin for DVT prophylaxis. Pepcid added. B12 and folate levels normal. Status: Acute Additional A&P Information Sacral wound. Dressing changes, surgery following Slightly elevated INR Type 2 diabetes, sliding scale insulin Lower extremity swelling. Venous duplex negative. EPI slightly diminished Hyponatremia, resolved Mild elevation of lipase. Doubt pancreatitis DVT prophylaxis. SCDs cannot be done currently secondary to lower extremity wounds. Low-dose heparin, monitoring hemoglobin closely Attestations Medical Necessity Statement*: Needs continued hospital stay secondary to sepsis. Suspect he can be transferred to regular floor today when dialysis catheter is removed. Coding Level of Care Code Acute Commercial Litigation Attorney for g Fwd Diagnoses Septic shock A41.9; R65.21 Cellulitis L03.90 Acute kidney injury N17.9 Hyperkalemia E87.5 Metabolic acidosis E87.2 Hematuria R31.9 Perineal abrasion Normocytic anemia D64.9
[2020-03-17 08:56] LABS: Glucose Point of Care 132 mg/dL (70-110)
[2020-03-17 08:56] LABS: Glucose Point of Care 124 mg/dL (70-110)
[2020-03-17] MEDS: sodium chloride 0.9% 250 ML IV (09:38)
--- NOTE | 2020-03-17 10:27 | PM.PN ---
Subjective Subjective: Interval history: No acute events overnight Patient's overall kidney condition is improving and rubble placer recommended to DC right femoral vein catheter Vitals/I&O/Wt Last Vital Signs Temp 98.9 F 03/17/20 00:00 Pulse 83 03/17/20 10:00 Resp 37 H 03/17/20 10:00 BP 75/52 03/17/20 10:00 Pulse Ox 91 03/17/20 10:00 03/16/20 03/17/20 03/17/20 22:59 06:59 14:59 Intake Total 68.15 / 1237.15 662.5 / 1899.65 220 / 220 Output Total 1000 / 1000 2200 / 3200 Balance -931.85 / 237.15 -1537.5 / -1300.35 220 / 220 Physical Exam Narrative: EXAM NARRATIVE: Patient is conscious alert oriented X3 BMI 33 Head and neck examination PERRLA no masses no cervical lymphadenopathy no jaundice Abdomen nontender nondistended soft no organomegaly guarding or rigidity/no signs of peritonitis Right femoral vein dialysis catheter in place Extremities no cyanosis no clubbing no edema Urinary Catheter Management^: Narayan: Cath Placed During This Visit: yes Reason for Continuing Indwelling Catheter: Accurate Measurement of Urinary Output in Critically Ill Patients Urinary Catheter Date of Insertion: 03/14/20 Data : 03/17/20 04:05 03/17/20 04:05 Micro: Microbiology 03/16/20 05:35 Blood Culture - Preliminary Blood NEGATIVE TO DATE 03/16/20 05:30 Blood Culture - Preliminary Blood NEGATIVE TO DATE 03/13/20 17:48 Urine Culture - Final Urine Catheterized 03/13/20 17:19 Blood Culture - Preliminary Blood Gram positive cocci Corynebacter pseudotuberculosi A&P Assessment and plan (1) Acute kidney injury: Will plan to DC right femoral vein temporary non-tunneled dialysis access catheter per nephrology recommendation Procedure was done bedside without complications and pressure was held by myself bedside for 10-minutes. We will have the patient lying flat and the first one hours check right groin every 15 minutes then the second hour every 30 minutes and then the following 4 hours every 1 hour, to check for bleeding. Please call for any questions or concerns Status: Acute (2) Stage 2 pressure ulcer with suspected deep tissue injury: Optimize nutrition Continue Santyl application daily followed by OPTi foam Frequent change session in bed every 2 hours PT OT I am happy to have the patient follow-up with me at the wound care center upon discharge or will make arrangements if he goes to the intermediate to be followed up on by our nurse practitioner Ms. Chris. Status: Acute (3) Chronic venous hypertension w/ulcer and inflammation involv both sides: Continue Santyl daily and application of ABDs followed by Dennys/Pilar Lisa per PT Status: Acute Attestations Medical Necessity Statement*: Medical necessity care is expected to cross 2 midnights Time Spent in Patient Care: 16 - 35 minutes (>than 50% of time spent in counselling and/or direct pt care on unit). Coding Level of Care Code Acute Lubrication Equipment Servicer for g Fwd Diagnoses Acute kidney injury N17.9 Stage 2 pressure ulcer with suspected deep tissue injury L89.92 Chronic venous hypertension w/ulcer and inflammation involv both sides I87.333; L97.919; L97.929
[2020-03-17 11:36] LABS: Glucose Point of Care 139 mg/dL (70-110)
--- NOTE | 2020-03-17 13:09 | PM.PN ---
Subjective Subjective: Interval history: No new issues today, making a good amount, no uremic Sx, more lucid and interactive. Bp a little soft this morning. Medications: Reviewed: Yes Vitals/I&O/Wt Last Vital Signs Temp 98.9 F 03/17/20 00:00 Pulse 83 03/17/20 10:00 Resp 37 H 03/17/20 10:00 BP 75/52 03/17/20 10:00 Pulse Ox 91 03/17/20 10:00 03/16/20 03/17/20 03/17/20 22:59 06:59 14:59 Intake Total 68.15 / 1237.15 662.5 / 1899.65 220 / 220 Output Total 1000 / 1000 2200 / 3200 Balance -931.85 / 237.15 -1537.5 / -1300.35 220 / 220 Physical Exam Narrative: EXAM NARRATIVE: Telemed eval with aid of bedside RN BMI 33 Head and neck examination PERRLA no masses no cervical lymphadenopathy no jaundice Abdomen nontender nondistended soft no organomegaly guarding or rigidity/no signs of peritonitis Right groin catheter in place without complication Bilateral lower extremity chronic venous ulcers Const: COMMON NORMALS: no acute distress (In pain when moved.); negative for patient oriented x3 EXAM LIMITATIONS: altered mental status GENERAL APPEARANCE: disheveled, lethargic and appears older than stated age ORIENTATION/CONSCIOUSNESS: Yes confused and Yes lethargic HENMT: COMMON NORMALS: normocephalic, atraumatic, hearing grossly normal bilaterally, external ears normal and oropharynx normal HEAD & SCALP: normocephalic and atraumatic EXTERNAL EAR: Yes external ears normal Neck/C-Spine: COMMON NORMALS: full ROM, no lymphadenopathy, supple and no JVD Resp: COMMON NORMALS: normal respiratory effort, No retractions, No use of accessory muscles and clear to auscultation bilaterally AUSCULTATION: clear to auscultation bilaterally Cardio: COMMON NORMALS: no JVD, regular rate, regular rhythm, S1 normal heart sound present, S2 normal heart sound present and No murmurs present (Cardio) RATE: regular rate RHYTHM: regular rhythm HEART SOUNDS: S1 normal heart sound present and S2 normal heart sound present GI: COMMON NORMALS: Normal to inspection, nondistended, normoactive bowel sounds present, Soft to palpation, non-tender and No hepatosplenomegaly present AUSCULTATION: Yes normoactive bowel sounds PALPATION: Yes Soft to palpation, No Tenderness to palpation present (GI), No Guarding due to palpation present (GI) and Yes No hepatosplenomegaly present Extremity: COMMON NORMALS: no joint enlargement NARRATIVE EXTREMITY EXAM: Extremely overgrown toenails bilaterally. GENERAL: Yes edema (2+) Neuro: COMMON NORMALS: moves all extremities; negative for patient oriented x3 SENSORIUM/ORIENTATION: Yes lethargic Skin: COMMON NORMALS: no rashes or lesions noted GENERAL SKIN EXAM: no rashes or lesions noted LESIONS: lesion noted (Extensive shallow ulcerations on bilateral lower extremities, with chronic venous stasis changes, currently with also superimposed cellulitis) Urinary Catheter Management^: Narayan: Cath Placed During This Visit: yes Reason for Continuing Indwelling Catheter: Accurate Measurement of Urinary Output in Critically Ill Patients Urinary Catheter Date of Insertion: 03/14/20 Data : 03/17/20 04:05 03/17/20 04:05 Micro: Microbiology 03/13/20 17:19 Blood Culture - Preliminary Blood Gram positive cocci Corynebacterium species 03/16/20 05:35 Blood Culture - Preliminary Blood NEGATIVE TO DATE 03/16/20 05:30 Blood Culture - Preliminary Blood NEGATIVE TO DATE 03/13/20 17:48 Urine Culture - Final Urine Catheterized A&P Additional A&P Information 1. PEREZ - severe PEREZ from pre-renal state that has likely led to some degree of ATN. Some retention of sodium avidity and UO ok and so these are good prognosticators - renal function recovering nicely now with creatinine coming down and good urine output - monitor closely with eval in the am for additional need - am labs - avoid the usuals 2. Lytes look good 3. Pneumonia and UTI - GPCs in the blood, final isolate pending - Vanco, Azxtreonam, Clinda on board 4. Hemodynamics soft - if it remains persistently low may need further diagnostics, midodrine etc - renal function improving, will sign off at this time Attestations Medical Necessity Statement*: eval for renal failure Coding Level of Care Code Acute Supervisor Public Message Service for Hossein Pan
[2020-03-17 16:38] LABS: Hematocrit 23.8 % (42.0-52.0); Hemoglobin 7.1 g/dL (11.7-16.6)
[2020-03-17 18:04] LABS: Glucose Point of Care 126 mg/dL (70-110)
[2020-03-17 18:04] LABS: Glucose Point of Care 113 mg/dL (70-110)
[2020-03-17] MEDS: sodium chloride 0.9% (100 ml) 100 ML (22:09)
[2020-03-17 22:13] LABS: Glucose Point of Care 129 mg/dL (70-110)
[2020-03-18] VITALS (19 sets, daily range): BP systolic 91–125; BP diastolic 51–66; PULSE 72–106; RESP 13–40; TEMP 36.6–37.3; O2SAT 91–98
[2020-03-18 01:05] LABS: Hematocrit 28.2 % (42.0-52.0); Hemoglobin 8.6 g/dL (11.7-16.6)
[2020-03-18 04:25] LABS: Anion Gap 16.7 (5-19); Blood Urea Nitrogen 48 mg/dL (8-23); Calcium 9.2 mg/dL (8.5-10.5); Carbon Dioxide 26 mmol/L (22-29); Chloride 102 mmol/L (98-107); Creatinine Clr Calc Pharmacy 46.2794; Glomerular Filtration Rate 31.9 mL/min (90-130); Glucose 117 mg/dL (65-115); Osmolality Calculated 291 mOsm/kg (285-295); Potassium 3.7 mmol/L (3.5-5.1); Sodium 141 mmol/L (136-145)
[2020-03-18] MEDS: levoFLOXacin 750 mg Tablet PO (05:59)
--- NOTE | 2020-03-18 06:35 | P.PN_ITS ---
Subjective Subjective: Interval history: Patient overall feels well No acute surgical event overnight and no bleeding from the right groin Dressing remained intact Vitals/I&O/Wt Last Vital Signs Temp 98.6 F 03/18/20 04:00 Pulse 93 03/18/20 06:00 Resp 29 H 03/18/20 06:00 BP 125/63 03/18/20 06:00 Pulse Ox 97 03/18/20 06:00 03/17/20 03/17/20 03/18/20 14:59 22:59 06:59 Intake Total 1220 / 1220 0 / 1220 837.5 / 2057.5 Output Total 1000 / 1000 700 / 1700 Balance 1220 / 1220 -1000 / 220 137.5 / 357.5 Physical Exam Narrative: EXAM NARRATIVE: Patient is conscious alert oriented X3 BMI 33 Head and neck examination PERRLA no masses no cervical lymphadenopathy no jaundice Abdomen nontender nondistended soft no organomegaly guarding or rigidity/no signs of peritonitis Right groin dressing intact and I did look underneath it there was no evidence of bleeding Urinary Catheter Management^: Narayan: Cath Placed During This Visit: yes Reason for Continuing Indwelling Catheter: Accurate Measurement of Urinary Output in Critically Ill Patients Urinary Catheter Date of Insertion: 03/14/20 Data : 03/18/20 00:35 03/18/20 03:30 Micro: Microbiology 03/13/20 17:19 Blood Culture - Preliminary Blood Gram positive cocci Corynebacterium species 03/16/20 05:35 Blood Culture - Preliminary Blood NEGATIVE TO DATE 03/16/20 05:30 Blood Culture - Preliminary Blood NEGATIVE TO DATE A&P Assessment and plan (1) S/P dialysis catheter insertion: Continue pressure dressing on right groin and will plan to remove the Geovany wrap towards the end of the day From surgical standpoint of view patient can be transferred to the floor Monitoring of vital signs and H&H Please call for any questions or concerns Status: Acute (2) Chronic venous hypertension w/ulcer and inflammation involv both sides: Will switch to silver sorb gel as Santyl has been adherent to the dressing and causes pain and discomfort to the patient, silver sorb gel will be applied daily then ABDs then 2 layer compression with a pressure between 20 to 30 mmHg, on each extremity. Status: Acute (3) Stage 2 pressure ulcer with suspected deep tissue injury: Continue daily application of Santyl and OPTi foam Status: Acute Attestations Medical Necessity Statement*: Medical necessity care is expected to cross 2 midnights Time Spent in Patient Care: (>than 50% of time spent in counselling and/or direct pt care on unit) . Coding Level of Care Code Acute Middleware Architect for Chg Fwd Diagnoses S/P dialysis catheter insertion Z95.828; Z99.2 Chronic venous hypertension w/ulcer and inflammation involv both sides I87.333; L97.919; L97.929 Stage 2 pressure ulcer with suspected deep tissue injury L89.92
--- NOTE | 2020-03-18 06:59 | ECG_ITS ---
Measurements Intervals Blossom Rate: 96 P: 67 HI: 139 QRS: 14 QRSD: 90 T: 49 QT: 367 QTc: 466 SINUS RHYTHM WITH OCCASIONAL SUPRAVENTRICULAR PREMATURE COMPLEXES NONSPECIFIC T-WAVE ABNORMALITY WARNING: DATA QUALITY MAY AFFECT INTERPRETATION Compared to ECG 03/13/2020 17:47:21 T-wave abnormality now present Sinus tachycardia no longer present Electronically Signed On 03-18-2020 11:48:52 CDT by Roverto Paniagua M.D. [email or web address]
--- NOTE | 2020-03-18 07:00 | PC.NURSE ---
0640 patient had a run of 39 beats of Vtach. patient began to get nauseous. patient states that he feels like he was lifting out of his body. patient denies chest pain at this time. EKG was done. notified of episode. verbal order from to order a Magnesium level on blood from AM lab draw.
[2020-03-18 07:19] LABS: Glucose Point of Care 137 mg/dL (70-110)
--- NOTE | 2020-03-18 09:02 | PM.PN ---
Subjective Subjective: Interval history: Julian reports he is doing okay. No pain in his right groin. Nursing alerts me that he had a run of ventricular tachycardia approximately 30 beats early this morning. Medications: Reviewed: Yes Vitals/I&O/Wt Last Vital Signs Temp 99.2 F 03/18/20 08:00 Pulse 90 03/18/20 08:00 Resp 21 H 03/18/20 08:00 BP 121/62 03/18/20 08:00 Pulse Ox 96 03/18/20 08:00 03/17/20 03/18/20 03/18/20 22:59 06:59 14:59 Intake Total 0 / 1220 837.5 / 2057.5 Output Total 1000 / 1000 700 / 1700 Balance -1000 / 220 137.5 / 357.5 Physical Exam Narrative: EXAM NARRATIVE: General exam no distress Cardiovascular regular rate and rhythm without murmur Lungs few coarse breath sounds at the bases Abdomen is soft with positive bowel sounds pressure dressing right groin Extremities, dressings in place. No edema Urinary Catheter Management^: Narayan: Cath Placed During This Visit: yes Reason for Continuing Indwelling Catheter: Accurate Measurement of Urinary Output in Critically Ill Patients Urinary Catheter Date of Insertion: 03/14/20 Data : 03/18/20 00:35 03/18/20 03:30 Micro: Microbiology 03/13/20 17:19 Blood Culture - Preliminary Blood Gram positive cocci Corynebacterium species 03/16/20 05:35 Blood Culture - Preliminary Blood NEGATIVE TO DATE 03/16/20 05:30 Blood Culture - Preliminary Blood NEGATIVE TO DATE A&P Assessment and plan (1) Septic shock: Hypotensive on presentation. Norepinephrine has been discontinued. He appears to be doing well Currently on vancomycin IV, Levaquin by mouth. Vancomycin can be discontinued tomorrow after 7 days. Blood culture 1/4 bottles gram-positive cocci. Appears to be contaminant. Repeat cultures negative. Etiology possible pneumonia versus cellulitis lower extremities Status: Acute (2) Cellulitis: Acute on chronic Continue vancomycin, with plans to discontinue this tomorrow Concern for peripheral vascular disease existed. ABIs minimally decreased Wound care per surgery Status: Acute (3) Acute kidney injury: May be acute on chronic Hemodialysis per nephrology. This has not been needed lately and his renal function is recovering Renal function does appear to be improving. Mild rhabdo was noted but no need for further CK at this time. Dialysis catheter right groin was removed March 17. He did have some bleeding afterwards. Status: Acute (4) Hyperkalemia: Resolved currently Status: Acute (5) Metabolic acidosis: Resolved Status: Acute (6) Hematuria: Mild. Potentially could be secondary to nephrolithiasis versus Narayan placement Status: Acute (7) Perineal abrasion: Nystatin cream Status: Acute (8) Normocytic anemia: Iron deficient. Received 1 unit of packed red blood cells with good improvement of hemoglobin. Initial stool Hemoccult negative. Subsequent one positive. Heparin has since been discontinued Pepcid added. B12 and folate levels normal. He did have some bleeding from his right groin after removal of his dialysis catheter and repeat transfusion of 1 unit was provided. Hemostasis currently intact. This was consistent with acute blood loss. Status: Acute Additional A&P Information Arrhythmia. Run of ventricular tachycardia noted this morning around 30 beats. Magnesium level pending. Potassium level was normal. Magnesium level is now back. Low. Supplement, monitor for further rhythm disturbance, transfer to CSU if no further concerns. Sacral wound. Dressing changes, surgery following Slightly elevated INR Type 2 diabetes, sliding scale insulin Lower extremity swelling. Venous duplex negative. EPI slightly diminished Hyponatremia, resolved Mild elevation of lipase. Doubt pancreatitis DVT prophylaxis. SCDs cannot be done currently secondary to lower extremity wounds. Low-dose heparin has been stopped secondary to anemia, bleeding right groin Probable transfer to CSU status this afternoon Attestations Medical Necessity Statement*: Needs continued hospitalization for close follow-up of renal function, treatment of infection, cellulitis with IV antibiotics Coding Level of Care Code Acute Supervisor Micro[employer] Duplicating Unit for [facility] Fwd Diagnoses Septic shock A41.9; R65.21 Cellulitis L03.90 Acute kidney injury N17.9 Hyperkalemia E87.5 Metabolic acidosis E87.2 Hematuria R31.9 Perineal abrasion Normocytic anemia D64.9
[2020-03-18 09:07] LABS: Magnesium 1.4 mg/dL (1.7-2.3)
[2020-03-18] MEDS: magnesium sulfate premix 2 GM/50 ML PIGGYBACK IV (09:20)
[2020-03-18] MEDS: silvasorb gel 44.4 mL 1 APPLIC TOPICAL (09:20)
[2020-03-18] MEDS: famotidine 20 mg Tablet PO ×2 (09:20→18:07)
[2020-03-18] MEDS: collagenase oint 30 gm 1 APPLIC TOPICAL (09:21)
--- NOTE | 2020-03-18 10:18 | PC.SOCIAL ---
IMM Update PG 2 of IMM initialed, dated, and timed and placed back in chart. Copy provided to patient.
[2020-03-18] MEDS: ondansetron 2 mg/ML SDV 2 mL 4 MG IVP (10:44)
[2020-03-18] MEDS: nystatin cream 30 gm 1 APPLIC TOPICAL ×2 (11:09→18:09)
[2020-03-18 11:11] LABS: Glucose Point of Care 118 mg/dL (70-110)
[2020-03-18] MEDS: dextrose 5% 1,000 ML 75 ML IV (13:25)
[2020-03-18 17:02] LABS: Glucose Point of Care 122 mg/dL (70-110)
--- NOTE | 2020-03-18 17:25 | PC.NURSE ---
Dr Joel called , ok to remove pressure dressing from Right groin. Dressing removed. Site intact. NO hematoma or bleeding noted. Pt tolerated well.
[2020-03-18] MEDS: dextrose 5%-sod chloride 0.45% 1,000 ML 30 ML IV (18:08)
[2020-03-18 20:34] LABS: Glucose Point of Care 147 mg/dL (70-110)
--- NOTE | 2020-03-18 21:32 | PC.NURSE ---
Patient pulled IV out new IV started first attempt left hand 20 g. patient a&o x 3 no complaints of pain or any issues. will be moving patient to CSU bed 112 bd 2 .Patient burton dc'd at 1730 has not voided yet.
[2020-03-19] VITALS (8 sets, daily range): BP systolic 90–137; BP diastolic 49–84; PULSE 85–103; RESP 12–26; TEMP 36.8–37; O2SAT 91–96
[2020-03-19] MEDS: ondansetron 2 mg/ML SDV 2 mL 4 MG IVP (01:27)
[2020-03-19] MEDS: lanolin oint 7 gm 1 APPLIC TOPICAL (01:27)
[2020-03-19 04:45] LABS: Basophils % 0.4 %; Eosinophils # 0.4 10^3/uL (0.0-0.8); Eosinophils % 5.1 %; Hematocrit 28.4 % (42.0-52.0); Hemoglobin 8.4 g/dL (11.7-16.6); Lymphocytes # 0.6 10^3/uL (0.8-4.8); Lymphocytes % 8.8 %; Mean Corpuscular HGB Conc 29.6 g/dL (30.0-36.0); Mean Corpuscular Hemoglobin 28.2 pg (28.0-34.0); Mean Corpuscular Volume 95.3 fL (80-94); Mean Platelet Volume 10.4 fL (7.4-10.4); Monocytes % 13.9 %; Neutrophils # 4.9 10^3/uL (1.8-7.7); Neutrophils % 69.7 %; Nucleated Red Blood Cells % 0 %; Platelet Count 168 10^3/cmm (130-400); Red Blood Count 2.98 10^6/uL (4.1-5.3); Red Cell Distribution Width 14.6 % (12.1-15.1); White Blood Count 7.1 10^3/uL (4.0-10.0)
[2020-03-19 05:09] LABS: Alanine Aminotransferase 18 U/L (0-41); Albumin Level 2.6 g/dL (3.5-5.2); Alkaline Phosphatase 79 IU/L (40-130); Anion Gap 16.8 (5-19); Aspartate Amino Transferase 28 U/L (0-40); Blood Urea Nitrogen 32 mg/dL (8-23); Calcium 8.8 mg/dL (8.5-10.5); Carbon Dioxide 26 mmol/L (22-29); Chloride 102 mmol/L (98-107); Globulin 3.8 g/dL (1.3-4.6); Glomerular Filtration Rate 30.2 mL/min (90-130); Glucose 101 mg/dL (65-115); Magnesium 1.6 mg/dL (1.7-2.3); Osmolality Calculated 289 mOsm/kg (285-295); Potassium 3.8 mmol/L (3.5-5.1); Sodium 141 mmol/L (136-145); Total Bilirubin 0.2 mg/dL (0.15-1.2); Total Protein 6.4 g/dL (6.6-8.7)
[2020-03-19 06:24] LABS: Glucose Point of Care 100 mg/dL (70-110)
[2020-03-19] MEDS: magnesium sulfate premix 2 GM/50 ML PIGGYBACK IV (08:56)
[2020-03-19] MEDS: famotidine 20 mg Tablet PO ×2 (08:56→18:09)
[2020-03-19] MEDS: tamsulosin 0.4 mg Capsule PO (08:56)
[2020-03-19] MEDS: nystatin cream 30 gm 1 APPLIC TOPICAL ×2 (08:57→18:10)
--- NOTE | 2020-03-19 11:03 | PC.CHAP ---
Pastoral Care Encounter/Spiritual Assessment Type of Contact [] Declined measurement psychologist visit [] Patient/Family/Request visit [] Outpatient visit [] Follow-up visit [] Physician referral [] Code/Alert [] Routine visit [] Staff referral [] Actively dying [x] Patient sleeping [] Family support [] [] Out of room [] Palliative care [] [] Receiving care in room [] Pre-surgical visit [] Trauma [] Long length of stay [] ICU visit [x] Other: Follow up needed Relational/Emotional Strength [] Patient feels connected with others/family/visitors/staff [] Distress [] Loneliness/isolation [] Abandonment Spirituality of Patient [] Person of Nisha [] Attends Evangelical of their Nisha [] Believes in Prayer [] Reads Bible or Zoroastrianism materials [] There are Spiritual issues to be addressed Him Assistant Interventions [] Prayer [] Active listening [] Non-anxious presence [] Spiritual/emotional support [] Crisis/trauma care [] Spiritual counseling [] Bereavement support [] Provided bereavement packet [] Provided Bible/devotional materials [] Provided toy/stuffed animal, coloring book to patient or family member [] Provided Communion [] Anointing/Prosperity [] Salvation [] Completed spiritual assessment [] Other: Impact on Illness or Injury [] Angry [] Fearful [] Anxious [] Often cries [] Exhaustion [] Unable to work [] Unable to attend yazdanism [] Unable to walk/stand [] Unable to read [] Unable to drive [] Unable to eat/drink [] Unable to sleep [] Unable to be with family [] Patient intubated [] Other: Summary Follow up needed Him Assistant Leslye Ruiz Time spent with patient 2 minutes
--- NOTE | 2020-03-19 12:01 | PM.DCS ---
Discharge Providers Date of Admission: 03/13/20 21:36 Date of Discharge: March 19, 2020 Attending Provider at Admission: Hugo Shi MD Attending Provider at Discharge: Ander Nolasco MD Primary Care Provider: Marcos Barksdale Diagnoses at Discharge Discharge Diagnosis (1) Septic shock: Status: Acute Problem details: Resolved (2) Cellulitis: Status: Acute Problem details: Improved (3) Acute kidney injury: Status: Acute Problem details: Improving (4) Hyperkalemia: Status: Acute Problem details: Resolved (5) Metabolic acidosis: Status: Acute (6) Hematuria: Status: Acute (7) Perineal abrasion: Status: Acute (8) Normocytic anemia: Status: Acute Problem details: Iron deficiency noted. Continue Pepcid. Initiate iron sulfate. Continue further work-up if he clinically improves. (9) Stage 2 pressure ulcer with suspected deep tissue injury: Status: Acute (10) Chronic venous hypertension w/ulcer and inflammation involv both sides: Status: Acute Reason for Visit Reason for Visit: Reason For Visit: AMS Hospital Course Hospital Course: Julian is a 64-year-old white male who presented to the hospital with sepsis, lower extremity wounds, and profound renal failure. There was concern of pneumonia as well. Broad-spectrum IV antibiotics were started. Pressors were started. Nephrology consultation was obtained. Dialysis was initiated March 14. Catheter was placed right groin, temporary. He did have some anemia noted as well and transfused 1 unit of packed red blood cells. Echocardiogram, venous duplex were normal. Arterial duplex to lower extremities demonstrated likely mild peripheral vascular disease. Following initiation of dialysis, with careful management comanagement his renal function gradually improved. Dialysis was able to be discontinued. Eventually dialysis catheter was removed. He did have some bleeding following this and his hemoglobin drifted down requiring 1 more unit of blood. Norepinephrine was able to be discontinued following this. On February 17, he was doing quite well, with the exception of not fully emptying his bladder. Therefore a Narayan catheter was placed back in as his residual was 900 cc and this will be left in until follow-up with urology. Flomax was also started. At time of discharge he was on room air, vital signs were stable, he was afebrile. Discharge hemoglobin 8.4, creatinine 2.2, and magnesium 1.6. Magnesium level had been supplemented during his hospital stay secondary to an episode of nonsustained ventricular tachycardia. Physical Exam Narrative: EXAM NARRATIVE: Exam no apparent distress Cardiovascular regular in rhythm without murmur Lungs clear Abdomen is soft with positive bowel sounds Extremities no cyanosis clubbing Urinary Catheter Management^: Narayan: Cath Placed During This Visit: yes, but has since been removed by the nurse Reason for Continuing Indwelling Catheter: Decision to DC Catheter Urinary Catheter Date of Insertion: 03/14/20 Date Urinary Catheter Removed: 03/18/20 Time Urinary Catheter Discontinued: 16:25 Discharge Data Data Completed and Pending: Completed Studies During Hospitalization Category Date Time Status CT abdomen pelvis wo con [id number] Stat Cat Scan 03/13/20 20:[address] head wo con* 7 0450 Stat Cat Scan 03/13/20 16:51 Completed XR chest 1V thania ble [id number] Routine Exams 03/14/20 06:00 Completed XR chest 1V thania ble [id number] Stat Exams 03/13/20 16:51 Completed Pathology: Surgic al [PTH] Routine Pth 03/16/20 11:32 [place] [id number] Rout ine Ultrasound 03/15/20 10:07 Completed CV echo complete* [id number] Routine Ultrasound 03/14/20 23:13 [place] [id number] Routin e Ultrasound 03/14/20 09:52 Completed Pending at discharge Category Date Time Status Arterial Blood Ga s Full Routine Lab 03/13/20 17:12 Results Arterial Blood Ga s Full Routine Lab 03/13/20 22:35 Results Blood Culture AM LABS Lab 03/16/20 05:35 Results Blood Culture Sta t Lab 03/13/20 17:22 Results Labs from last 24 hours 03/19/20 03/19/20 03/19/20 06:03 04:30 04:30 WBC 7.1 RBC 2.98 L Hgb 8.4 L Hct 28.4 L MCV 95.3 H MCH 28.2 MCHC 29.6 L RDW 14.6 Plt Count 168 MPV 10.4 Neut % (Auto) 69.7 Lymph % (Auto) 8.8 [place] % (Auto) 13.9 Eos % (Auto) 5.1 Baso % (Auto) 0.4 Neut # (Auto) 4.9 Lymph # (Auto) 0.6 L [place] # (Auto) 1.0 H Eos # (Auto) 0.4 Baso # (Auto) 0.0 Nucleated RBC % (a uto) 0 Nucleated RBCs # 0.0 Sodium 141 Potassium 3.8 Chloride 102 Carbon Dioxide 26 Anion Gap 16.8 BUN 32 H Creatinine 2.2 H GFR Calculation 30.2 L Glucose 101 POC Glucose 100 Calculated Osmolal ity 289 Calcium 8.8 Magnesium 1.6 L Total Bilirubin 0.2 AST 28 ALT 18 Alkaline Phosphata se 79 Total Protein 6.4 L Albumin 2.6 L Globulin 3.8 03/18/20 03/18/20 20:03 16:58 WBC RBC Hgb Hct MCV MCH MCHC RDW Plt Count MPV Neut % (Auto) Lymph % (Auto) [place] % (Auto) Eos % (Auto) Baso % (Auto) Neut # (Auto) Lymph # (Auto) [place] # (Auto) Eos # (Auto) Baso # (Auto) Nucleated RBC % (a uto) Nucleated RBCs # Sodium Potassium Chloride Carbon Dioxide Anion Gap BUN Creatinine GFR Calculation Glucose POC Glucose 147 122 Calculated Osmolal ity Calcium Magnesium Total Bilirubin AST ALT Alkaline Phosphata se Total Protein Albumin Globulin Vitals: Last Vital Signs Temp 98.3 F 03/19/20 04:00 Pulse 85 03/19/20 04:00 Resp 21 H 03/19/20 04:00 BP 112/57 03/19/20 04:00 Pulse Ox 93 03/19/20 04:00 Discharge Plan Discharge Patient Disposition: Xfer SNF Condition: Stable Prescriptions: New acetaminophen 325 mg Tablet 650 mg PO Q6H PRN (Reason: fever) Qty: 30 RF: 0 nystatin 100,000 unit/gram Cream 1 applic topical BID Qty: 30 RF: 0 Santyl 250 unit/gram Ointment 1 applic topical DAILY PRN (Reason: wound) Qty: 1 RF: 0 SilvaSorb Gel,Extended Release 1 applic topical Q24H Qty: 30 RF: 0 tamsulosin 0.4 mg Capsule 0.4 mg PO DAILY Qty: 30 RF: 0 magnesium oxide 400 mg magnesium capsule 400 mg PO DAILY Qty: 30 RF: 0 famotidine 20 mg Tablet 20 mg PO BID Qty: 60 RF: 0 levofloxacin 750 mg Tablet 750 mg PO Q48H Qty: 2 RF: 0 ferrous sulfate 325 mg (65 mg iron) tablet,delayed release (DR/EC) 325 mg PO BID Qty: 60 RF: 0 No Action Unable to Assess RF: 0 Discharge Orders: Discharge Order (Routine); Ordered 03/19/20 Ordered By: Ander Nolasco Referrals: Reed Foster MD [Physician] - 4-7 days Charles Eng MD [Physician] - 7-10 days Discharge Diet: Regular Discharge Activity: Increase activity as tolerated Activity Restrictions/Additional Instructions: Follow-up with primary care provider at long-term facility CBC, BMP, magnesium level on Sunday Arrange for urology follow-up for urinary retention Keep Narayan catheter in Discharge Attestations Time Spent in Discharge Care*: greater than 30 min Quality Metrics Clinical Quality Measures During this hospital stay, did patient experience: None Coding Level of Care Code Acute Production Line Manager for [facility] Fwd Diagnoses Septic shock A41.9; R65.21 Cellulitis L03.90 Acute kidney injury N17.9 Hyperkalemia E87.5 Metabolic acidosis E87.2 Hematuria R31.9 Perineal abrasion Normocytic anemia D64.9 Stage 2 pressure ulcer with suspected deep tissue injury L89.92 Chronic venous hypertension w/ulcer and inflammation involv both sides I87.333; L97.919; L97.929
[2020-03-19 12:04] LABS: Glucose Point of Care 91 mg/dL (70-110)
--- NOTE | 2020-03-19 13:15 | PC.NURSE ---
pt assisted pt to wheelchair to be discharged. when blood pressure was taken it was 66/45. pt placed back in bed. notified and was on way to see pt.
[2020-03-19] MEDS: silvasorb gel 44.4 mL 1 APPLIC TOPICAL (13:52)
--- NOTE | 2020-03-19 14:23 | PM.PN ---
Subjective Subjective: Interval history: Overall feels better No acute events overnight with regard to the right groin and no evidence of bleeding. Vitals/I&O/Wt Last Vital Signs Temp 98.4 F 03/19/20 12:34 Pulse 91 03/19/20 12:34 Resp 23 H 03/19/20 12:34 BP 131/73 03/19/20 12:34 Pulse Ox 95 03/19/20 12:34 03/18/20 03/19/20 03/19/20 22:59 06:59 14:59 Intake Total 680 / 1880 350 / 2230 480 / 480 Output Total 0 / 0 200 / 200 150 / 150 Balance 680 / 1880 150 / 2030 330 / 330 Weight last 48 hrs Weight 243 lb 8 oz Physical Exam Narrative: EXAM NARRATIVE: Patient is conscious alert oriented X3 BMI 32 Head and neck examination PERRLA no masses no cervical lymphadenopathy no jaundice Right groin no evidence of hematoma or bleeding or swelling Urinary Catheter Management^: Narayan: Cath Placed During This Visit: yes, but has since been removed by the nurse Reason for Continuing Indwelling Catheter: Decision to DC Catheter Urinary Catheter Date of Insertion: 03/14/20 Urinary Catheter Time of Insertion: 08:30 Date Urinary Catheter Removed: 03/18/20 Time Urinary Catheter Discontinued: 16:25 Data : 03/19/20 04:30 03/19/20 04:30 Micro: Microbiology 03/13/20 17:22 Blood Culture - Final Blood NO GROWTH AFTER 5 DAYS A&P Assessment and plan (1) S/P dialysis catheter insertion: Condition resolved and no evidence of hematoma or bleeding Status: Acute (2) Chronic venous hypertension w/ulcer and inflammation involv both sides: silver sorb gel will be applied daily then ABDs then 2 layer compression with a pressure between 20 to 30 mmHg, on each extremity. I am happy to follow-up on the patient at the wound care center. Status: Acute (3) Stage 2 pressure ulcer with suspected deep tissue injury: Continue daily application of Santyl and OPTi foam Status: Acute Attestations Medical Necessity Statement*: Per hospitalist Time Spent in Patient Care: (>than 50% of time spent in counselling and/or direct pt care on unit). Coding Level of Care Code Acute Market Sales Manager for g Fwd Diagnoses S/P dialysis catheter insertion Z95.828; Z99.2 Chronic venous hypertension w/ulcer and inflammation involv both sides I87.333; L97.919; L97.929 Stage 2 pressure ulcer with suspected deep tissue injury L89.92
[2020-03-19] MEDS: midodrine 5 mg TABLET 2.5 MG PO (15:56)
[2020-03-19 17:01] LABS: Glucose Point of Care 121 mg/dL (70-110)
[2020-03-19 19:50] LABS: Cortisol Random 17.84 mcg/dL (2.47-19.5)
[2020-03-19 21:28] LABS: Glucose Point of Care 139 mg/dL (70-110)
[2020-03-19] MEDS: midodrine 5 mg TABLET PO (21:39)
[2020-03-20] VITALS: BP 107/54; PULSE 77; RESP 17; TEMP 36.7; O2SAT 92
[2020-03-20 04:00] VITALS: BP 123/67; PULSE 74; RESP 18; TEMP 36.9; O2SAT 97
[2020-03-20 05:14] LABS: Basophils % 0.1 %; Eosinophils # 0.6 10^3/uL (0.0-0.8); Eosinophils % 8.3 %; Hematocrit 30.2 % (42.0-52.0); Lymphocytes # 0.8 10^3/uL (0.8-4.8); Lymphocytes % 10.4 %; Magnesium 1.9 mg/dL (1.7-2.3); Mean Corpuscular HGB Conc 29.8 g/dL (30.0-36.0); Mean Corpuscular Hemoglobin 28.5 pg (28.0-34.0); Mean Corpuscular Volume 95.6 fL (80-94); Mean Platelet Volume 10.4 fL (7.4-10.4); Monocytes # 0.9 10^3/uL (0.2-0.9); Monocytes % 11.9 %; Neutrophils # 5.1 10^3/uL (1.8-7.7); Neutrophils % 67.5 %; Nucleated Red Blood Cells % 0 %; Platelet Count 181 10^3/cmm (130-400); Red Blood Count 3.16 10^6/uL (4.1-5.3); Red Cell Distribution Width 14.2 % (12.1-15.1); White Blood Count 7.6 10^3/uL (4.0-10.0)
[2020-03-20 05:17] LABS: Anion Gap 16.1 (5-19); Blood Urea Nitrogen 29 mg/dL (8-23); Calcium 9.7 mg/dL (8.5-10.5); Carbon Dioxide 29 mmol/L (22-29); Chloride 103 mmol/L (98-107); Glomerular Filtration Rate 33.7 mL/min (90-130); Glucose 101 mg/dL (65-115); Osmolality Calculated 295 mOsm/kg (285-295); Potassium 4.1 mmol/L (3.5-5.1); Sodium 144 mmol/L (136-145)
[2020-03-20 06:36] LABS: Glucose Point of Care 91 mg/dL (70-110)
[2020-03-20] MEDS: levoFLOXacin 750 mg Tablet PO (06:50)
[2020-03-20 07:34] VITALS: BP 123/68; PULSE 80; RESP 17; O2SAT 95
[2020-03-20] MEDS: midodrine 5 mg TABLET PO (10:00)
[2020-03-20] MEDS: tamsulosin 0.4 mg Capsule PO (10:00)
[2020-03-20] MEDS: famotidine 20 mg Tablet PO (10:00)
[2020-03-20] MEDS: nystatin cream 30 gm 1 APPLIC TOPICAL (10:01)
[2020-03-20] MEDS: silvasorb gel 44.4 mL 1 APPLIC TOPICAL (10:01)
[2020-03-20 11:03] LABS: Glucose Point of Care 116 mg/dL (70-110)
[2020-03-20 11:36] LABS: Glucose Point of Care 110 mg/dL (70-110)
--- NOTE | 2020-03-20 11:37 | PC.SOCIAL ---
*IMM* Patient received (updated) Important Message from Medicare. patient signed, original in chart, copy gave to the patient
--- NOTE | 2020-03-20 11:45 | PM.PN ---
Subjective Subjective: Interval history: This document should serve as an addendum to the discharge summary done yesterday. Patient reports he feels better today. Physical therapy got him up and he was able to stand for brief episodes without severe hypotension but dizziness persisted. He was tolerating the Midodrine without concerns. Medications: Reviewed: Yes Vitals/I&O/Wt Last Vital Signs Temp 98.5 F 03/20/20 04:00 Pulse 80 03/20/20 07:34 Resp 17 03/20/20 07:34 BP 123/68 03/20/20 07:34 Pulse Ox 95 03/20/20 07:34 03/19/20 03/20/20 03/20/20 22:59 06:59 14:59 Intake Total 600 / 1080 100 / 1180 360 / 360 Output Total 800 / 950 500 / 1450 Balance -200 / 130 -400 / -270 360 / 360 Weight last 48 hrs Weight 109.044 kg Weight 110.45 kg Physical Exam Narrative: EXAM NARRATIVE: Exam no apparent distress Cardiovascular regular in rhythm without murmur Lungs clear Abdomen is soft with positive bowel sounds Extremities no cyanosis clubbing Urinary Catheter Management^: Narayan: Cath Placed During This Visit: yes, but has since been removed by the nurse Reason for Continuing Indwelling Catheter: Acute Urinary Retention or Obstruction Urinary Catheter Date of Insertion: 03/14/20 Urinary Catheter Time of Insertion: 08:30 Date Urinary Catheter Removed: 03/18/20 Time Urinary Catheter Discontinued: 16:25 Data : 03/20/20 04:42 03/20/20 04:42 Micro: Microbiology 03/13/20 17:19 Blood Culture - Final Blood Staphylococcus lugdunensis Corynebacterium species A&P Assessment and plan (1) Septic shock: Hypotensive on presentation. Norepinephrine has been discontinued. He appears to be doing well Currently on vancomycin IV, Levaquin by mouth. Levaquin by mouth on discharge for short duration Blood culture 1/4 bottles gram-positive cocci. Appears to be contaminant. Repeat cultures negative. Etiology possible pneumonia versus cellulitis lower extremities Status: Acute (2) Cellulitis: Acute on chronic Concern for peripheral vascular disease existed. ABIs minimally decreased Wound care per surgery Status: Acute (3) Acute kidney injury: May be acute on chronic Hemodialysis per nephrology. This has not been needed lately and his renal function is recovering Renal function does appear to be improving. Mild rhabdo was noted but no need for further CK at this time. Dialysis catheter right groin was removed March 17. He did have some bleeding afterwards. Status: Acute (4) Hyperkalemia: Resolved currently Status: Acute (5) Metabolic acidosis: Resolved Status: Acute (6) Hematuria: Mild. Potentially could be secondary to nephrolithiasis versus Narayan placement Status: Acute (7) Perineal abrasion: Nystatin cream Status: Acute (8) Normocytic anemia: Iron deficient. Received 1 unit of packed red blood cells with good improvement of hemoglobin. Initial stool Hemoccult negative. Subsequent one positive. Heparin has since been discontinued Pepcid added. B12 and folate levels normal. Hypotension, orthostatic. Midodrine added yesterday which she is tolerating. He will be discharged on this. Discussed orthostatic hypotension with nursing facility in detail. He did have some bleeding from his right groin after removal of his dialysis catheter and repeat transfusion of 1 unit was provided. Hemostasis currently intact. This was consistent with acute blood loss. Status: Acute (9) Stage 2 pressure ulcer with suspected deep tissue injury: Status: Acute (10) Chronic venous hypertension w/ulcer and inflammation involv both sides: Status: Acute Additional A&P Information Arrhythmia. Had episode of ventricular tachycardia, associated with hypomagnesemia while in the hospital, nonsustained. He has had no recurrence with supplementation of magnesium levels. Sacral wound. Dressing changes, surgery following Slightly elevated INR Type 2 diabetes, sliding scale insulin Lower extremity swelling. Venous duplex negative. EPI slightly diminished Hyponatremia, resolved Mild elevation of lipase. Doubt pancreatitis [facility]. 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
[2020-03-20 11:49] VITALS: BP 91/67; PULSE 80; RESP 17; TEMP 36.9; O2SAT 95
[2020-03-20 12:00] VITALS: BP 122/64; PULSE 81; RESP 16; TEMP 36.7; O2SAT 99
[2020-03-20 13:17] VITALS: PULSE 80; O2SAT 95
== END 2020-03-20 14:34 | disposition skilled nursing facility (03) | DRG 871 ==
LOC: ER 21:54 → ICU 22:29 → CSU 03-19 01:02
PROVIDERS: Family Medicine; Internal Medicine; Surgery; Admitting Provider Internal Medicine; PCP Family Medicine; Visit Provider Internal Medicine
DX: A41.9 Sepsis, unspecified organism (principal); R65.21 Severe sepsis with septic shock; J18.9 Pneumonia, unspecified organism; E87.2 Acidosis; L03.116 Cellulitis of left lower limb; L03.115 Cellulitis of right lower limb; N17.9 Acute kidney failure, unspecified; M62.82 Rhabdomyolysis; I47.2 Ventricular tachycardia; N39.0 Urinary tract infection, site not specified; Z87.442 Personal history of urinary calculi; Z87.891 Personal history of nicotine dependence; E87.5 Hyperkalemia; R31.9 Hematuria, unspecified; S30.810A Abrasion of lower back and pelvis, initial encounter; D50.9 Iron deficiency anemia, unspecified; I83.12 Varicose veins of left lower extremity with inflammation; I83.11 Varicose veins of right lower extremity with inflammation; I95.9 Hypotension, unspecified; N20.0 Calculus of kidney; L89.152 Pressure ulcer of sacral region, stage 2; N49.3 Fournier gangrene; K80.20 Calculus of gallbladder without cholecystitis without obstruction; E86.0 Dehydration; E11.9 Type 2 diabetes mellitus without complications
CPT/HCPCS: 12345; 29581; 36415; 36416; 36430; 36600; 51702; 70450; 71045; 74176; 80048; 80051; 80053; 80202; 81001; 82274; 82533; 82550; 82570; 82607; 82728; 82746; 82810; 82962; 83540; 83550; 83605; 83690; 83735; 83880; 83986; 84100; 84300; 84443; 85014; 85018; 85025; 85045; 85362; 85378; 85384; 85610; 85730; 86706; 86803; 86850; 86900; 86920; 87040; 87077; 87086; 87186; 87205; 87340; 88305; 90935; 93005; 93306; 93925; 93970; 94640; 96372; 96375; 97110; 97140; 97163; 97530; 99284; A4216; A4570; C1752; J0610; J1644; J1815; J2250; J2270; J2405; J2543; J3010; J3370; J3475; J3490; J7050; J7611; J7799; P9016; Q3014

== ENCOUNTER 2020-05-19 08:20 | Outpatient (CLI) | payer OTHER, SELFPAY ==
--- NOTE | 2020-05-19 08:26 | MR_ITS ---
WS: [id number] MRI LEFT ANKLE NONCONTRAST TECHNIQUE: Sagittal proton density, sagittal STIR, axial proton density, axial T1, axial T2 fat sat, coronal proton density, coronal proton density fat sat, coronal T2 fat sat. CLINICAL INFORMATION: PAIN AND SWELLING LT ANKLE/FOOT COMPARISON: None. 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 Diffuse soft tissue edema involving the lower leg and foot soft tissues extending into the intramuscular soft tissues consistent with cellulitis and soft tissue infection. Recommend clinical correlation No drainable abscess or fluid collection. Plantar calcaneal spurring. No evidence of osteomyelitis. T enosynovitis involving the peroneal tendons and flexor compartment tendons. Extensor compartment tend ons appear normal. Tenosynovitis along the peroneal longus and brevis. Chronic appearing tendinopathy with thickening involving the peroneus longus. Pes planus. Plantar calcaneal spurring. Distal Achilles is unremarkable with a small amount of tendin osis. Degenerative arthritis at the ankle mortise. Normal medial and lateral malleolus. Well-corticat ed ossicles at the tip of the lateral malleolus. Talar dome appears normal.No avascular necrosis. MR/MR ankle LT wo con* [id number] IMPRESSION: 1. Diffuse soft tissue edema involving the lower leg and foot right consistent with cellulitis. Recommend correlation for infection. 2. No drainable abscess or fluid collection. 3. No evidence of osteomyelitis. 4. Pes planus with plantar calcaneal spurring. 5. Additional chronic findings described above.
== END 2020-05-19 08:21 | disposition home or self-care (01) ==
LOC: RADSHAW 08:23
PROVIDERS: PCP Family Medicine; Visit Provider Nurse Practitioner Family
DX: M25.572 Pain in left ankle and joints of left foot (principal); M25.472 Effusion, left ankle; M21.42 Flat foot [pes planus] (acquired), left foot; M77.32 Calcaneal spur, left foot; M19.072 Primary osteoarthritis, left ankle and foot
CPT/HCPCS: 73721

== ENCOUNTER → 2020-06-03 08:38 | Outpatient (BNVA) | payer OTHER, MEDICAID, MEDICARE, SELFPAY | PROVIDERS: PCP Family Medicine; Referring Provider Internal Medicine; Visit Provider Dermatology | DX: D48.9 Neoplasm of uncertain behavior, unspecified (principal); S01.90XA Unspecified open wound of unspecified part of head, initial encounter; X58.XXXA Exposure to other specified factors, initial encounter | CPT/HCPCS: 11104; 87070; 87075; 87077; 87186; 88304; 88305; 99203; 99204 ==

== ENCOUNTER → 2020-06-17 15:56 | Outpatient (BNVA) | payer OTHER, MEDICARE, MEDICAID, SELFPAY | PROVIDERS: PCP Family Medicine; Visit Provider Dermatology | DX: S01.90XA Unspecified open wound of unspecified part of head, initial encounter (principal); X58.XXXA Exposure to other specified factors, initial encounter | CPT/HCPCS: 87070; 99213 ==

== ENCOUNTER 2020-07-01 14:33 | Outpatient (CLI) | payer OTHER, MEDICARE, MEDICAID, SELFPAY | END 2020-07-01 14:34 | disposition home or self-care (01) | LOC: WOUND 14:35 | PROVIDERS: PCP Family Medicine; Visit Provider Emergency Medicine | DX: L89.892 Pressure ulcer of other site, stage 2 (principal) | CPT/HCPCS: 11042; 11045; 87070; 87176; 87205 ==

== ENCOUNTER 2020-07-08 08:30 | Outpatient (CLI) | payer MEDICARE, MEDICAID, SELFPAY | END 2020-07-08 08:31 | disposition home or self-care (01) | LOC: WOUND 08:31 | PROVIDERS: PCP Family Medicine; Visit Provider Emergency Medicine | DX: L89.892 Pressure ulcer of other site, stage 2 (principal) | CPT/HCPCS: 11042; 11045 ==

== ENCOUNTER 2020-07-15 07:58 | Outpatient (CLI) | payer MEDICARE, MEDICAID, SELFPAY | END 2020-07-15 07:59 | disposition home or self-care (01) | LOC: WOUND 07:59 | PROVIDERS: PCP Family Medicine; Visit Provider Emergency Medicine | DX: L89.892 Pressure ulcer of other site, stage 2 (principal) | CPT/HCPCS: 11042; 11045 ==

== ENCOUNTER 2020-07-22 07:59 | Outpatient (CLI) | payer MEDICARE, MEDICAID, SELFPAY | END 2020-07-22 08:00 | disposition home or self-care (01) | LOC: WOUND 07:59 | PROVIDERS: PCP Family Medicine; Visit Provider Emergency Medicine | DX: L89.812 Pressure ulcer of head, stage 2 (principal) | CPT/HCPCS: 11042; 11045 ==

== ENCOUNTER 2020-07-29 08:23 | Outpatient (CLI) | payer MEDICARE, MEDICAID, SELFPAY | END 2020-07-29 08:24 | disposition home or self-care (01) | LOC: WOUND 08:23 | PROVIDERS: PCP Family Medicine; Visit Provider Nurse Practitioner Family | DX: L89.812 Pressure ulcer of head, stage 2 (principal) | CPT/HCPCS: 11042; 11045 ==

== ENCOUNTER 2020-08-05 08:14 | Outpatient (CLI) | payer MEDICARE, MEDICAID, SELFPAY | END 2020-08-05 08:15 | disposition home or self-care (01) | LOC: WOUND 08:14 | PROVIDERS: PCP Family Medicine; Visit Provider Nurse Practitioner Family | DX: L89.812 Pressure ulcer of head, stage 2 (principal) | CPT/HCPCS: 11042; 11045 ==

== ENCOUNTER 2020-08-12 08:22 | Outpatient (CLI) | payer MEDICARE, MEDICAID, SELFPAY | END 2020-08-12 08:23 | disposition home or self-care (01) | LOC: WOUND 08:23 | PROVIDERS: PCP Family Medicine; Visit Provider Surgery | DX: L89.812 Pressure ulcer of head, stage 2 (principal) | CPT/HCPCS: G0463 ==

== ENCOUNTER 2020-09-02 08:39 | Outpatient (CLI) | payer MEDICARE, MEDICAID, SELFPAY | END 2020-09-02 08:40 | disposition home or self-care (01) | LOC: WOUND 08:39 | PROVIDERS: PCP Family Medicine; Visit Provider Nurse Practitioner Family | DX: L89.812 Pressure ulcer of head, stage 2 (principal) | CPT/HCPCS: 11042; 11045 ==

== ENCOUNTER 2020-09-09 08:33 | Outpatient (CLI) | payer MEDICARE, MEDICAID, SELFPAY | END 2020-09-09 08:34 | disposition home or self-care (01) | LOC: WOUND 08:34 | PROVIDERS: PCP Family Medicine; Visit Provider Nurse Practitioner Family | DX: L89.812 Pressure ulcer of head, stage 2 (principal); E11.622 Type 2 diabetes mellitus with other skin ulcer; L97.812 Non-pressure chronic ulcer of other part of right lower leg with fat layer exposed | CPT/HCPCS: 11042; 11045 ==

== ENCOUNTER 2020-09-14 09:33 | Outpatient (CLI) | payer OTHER, SELFPAY ==
--- NOTE | 2020-09-14 09:15 | XR_ITS ---
WS: [id number] XR KUB [id number] REASON FOR EXAM: NEPHROLITHIASIS FINDINGS: The abdomen is unchanged compared to previous examination of 04/24/2019. There is a large dense calcul us, approximately 11 mm in diameter, overlying the lower pole of left kidney. Bowel gas pattern is unremarkable. Moderately severe degenerative spondylosis in the lumbar spine and moderately severe degenerative art hropathy in the hip joints. XR/XR KUB [id number] IMPRESSION: Left renal calculus with no interval change.
== END 2020-09-14 09:34 | disposition home or self-care (01) ==
PROVIDERS: PCP Family Medicine; Visit Provider Urology
DX: N20.0 Calculus of kidney (principal)
CPT/HCPCS: 74018

== ENCOUNTER 2020-09-16 08:37 | Outpatient (CLI) | payer MEDICARE, MEDICAID, SELFPAY | END 2020-09-16 08:38 | disposition home or self-care (01) | LOC: WOUND 08:37 | PROVIDERS: PCP Family Medicine; Visit Provider Nurse Practitioner Family | DX: L89.812 Pressure ulcer of head, stage 2 (principal); E11.622 Type 2 diabetes mellitus with other skin ulcer; L97.811 Non-pressure chronic ulcer of other part of right lower leg limited to breakdown of skin; L97.822 Non-pressure chronic ulcer of other part of left lower leg with fat layer exposed | CPT/HCPCS: 11042; G0463 ==

== ENCOUNTER 2020-09-23 09:06 | Outpatient (CLI) | payer MEDICARE, MEDICAID, SELFPAY | END 2020-09-23 09:07 | disposition home or self-care (01) | LOC: WOUND 09:07 | PROVIDERS: PCP Family Medicine; Visit Provider Nurse Practitioner Family | DX: L89.812 Pressure ulcer of head, stage 2 (principal); E11.622 Type 2 diabetes mellitus with other skin ulcer; L97.811 Non-pressure chronic ulcer of other part of right lower leg limited to breakdown of skin; L97.822 Non-pressure chronic ulcer of other part of left lower leg with fat layer exposed | CPT/HCPCS: 11042; 11045 ==

== ENCOUNTER 2020-10-14 08:20 | Outpatient (CLI) | payer MEDICARE, MEDICAID, SELFPAY | END 2020-10-14 08:21 | disposition home or self-care (01) | LOC: WOUND 08:20 | PROVIDERS: PCP Family Medicine; Visit Provider Nurse Practitioner Family | DX: L89.812 Pressure ulcer of head, stage 2 (principal); E11.622 Type 2 diabetes mellitus with other skin ulcer; L97.812 Non-pressure chronic ulcer of other part of right lower leg with fat layer exposed | CPT/HCPCS: 11042; 11045 ==

== ENCOUNTER 2020-10-21 08:05 | Outpatient (CLI) | payer MEDICARE, MEDICAID, SELFPAY | END 2020-10-21 08:06 | disposition home or self-care (01) | LOC: WOUND 08:05 | PROVIDERS: PCP Family Medicine; Visit Provider Nurse Practitioner Family | DX: L89.812 Pressure ulcer of head, stage 2 (principal); E11.622 Type 2 diabetes mellitus with other skin ulcer; L97.811 Non-pressure chronic ulcer of other part of right lower leg limited to breakdown of skin; I87.2 Venous insufficiency (chronic) (peripheral); L97.822 Non-pressure chronic ulcer of other part of left lower leg with fat layer exposed | CPT/HCPCS: 11042 ==

== ENCOUNTER 2020-10-26 08:23 | Outpatient (CLI) | payer MEDICARE, MEDICAID, SELFPAY | END 2020-10-26 08:24 | disposition home or self-care (01) | LOC: WOUND 08:23 | PROVIDERS: PCP Family Medicine; Visit Provider Nurse Practitioner Family | DX: L89.812 Pressure ulcer of head, stage 2 (principal); I87.2 Venous insufficiency (chronic) (peripheral); L97.821 Non-pressure chronic ulcer of other part of left lower leg limited to breakdown of skin; E11.622 Type 2 diabetes mellitus with other skin ulcer; L97.818 Non-pressure chronic ulcer of other part of right lower leg with other specified severity | CPT/HCPCS: 11042; 11045 ==

== ENCOUNTER 2020-11-04 08:08 | Outpatient (CLI) | payer MEDICARE, MEDICAID, SELFPAY | END 2020-11-04 08:09 | disposition home or self-care (01) | LOC: WOUND 08:08 | PROVIDERS: PCP Family Medicine; Visit Provider Nurse Practitioner Family | DX: I87.2 Venous insufficiency (chronic) (peripheral) (principal); L97.822 Non-pressure chronic ulcer of other part of left lower leg with fat layer exposed; L89.812 Pressure ulcer of head, stage 2 | CPT/HCPCS: 11042; 11045 ==

== ENCOUNTER 2020-11-11 08:05 | Outpatient (CLI) | payer MEDICARE, MEDICAID, SELFPAY | END 2020-11-11 08:06 | disposition home or self-care (01) | LOC: WOUND 08:06 | PROVIDERS: PCP Family Medicine; Visit Provider Nurse Practitioner Family | DX: I87.2 Venous insufficiency (chronic) (peripheral) (principal); L97.822 Non-pressure chronic ulcer of other part of left lower leg with fat layer exposed; L89.812 Pressure ulcer of head, stage 2 | CPT/HCPCS: 11042; 11045 ==

== ENCOUNTER 2020-11-18 08:12 | Outpatient (CLI) | payer MEDICARE, MEDICAID, SELFPAY | END 2020-11-18 08:13 | disposition home or self-care (01) | LOC: WOUND 08:12 | PROVIDERS: PCP Family Medicine; Visit Provider Nurse Practitioner Family | DX: I87.2 Venous insufficiency (chronic) (peripheral) (principal); L97.822 Non-pressure chronic ulcer of other part of left lower leg with fat layer exposed; L89.812 Pressure ulcer of head, stage 2 | CPT/HCPCS: 11042; 11045 ==

== ENCOUNTER 2020-12-02 08:19 | Outpatient (CLI) | payer MEDICARE, MEDICAID, SELFPAY | END 2020-12-02 08:20 | disposition home or self-care (01) | LOC: WOUND 08:20 | PROVIDERS: PCP Family Medicine; Visit Provider Nurse Practitioner Family | DX: L89.812 Pressure ulcer of head, stage 2 (principal); E11.622 Type 2 diabetes mellitus with other skin ulcer; L97.822 Non-pressure chronic ulcer of other part of left lower leg with fat layer exposed; L97.811 Non-pressure chronic ulcer of other part of right lower leg limited to breakdown of skin | CPT/HCPCS: 11042; 11045 ==

== ENCOUNTER 2020-12-06 15:09 | Outpatient (CLI) | payer MEDICARE, MEDICAID, SELFPAY | END 2020-12-06 15:10 | disposition home or self-care (01) | PROVIDERS: PCP Family Medicine; Visit Provider Thoracic Surgery (Cardiothoracic Vascular Surgery) | DX: L89.812 Pressure ulcer of head, stage 2 (principal) | CPT/HCPCS: 29581 ==

== ENCOUNTER 2020-12-09 08:04 | Outpatient (CLI) | payer MEDICARE, MEDICAID, SELFPAY | END 2020-12-09 08:05 | disposition home or self-care (01) | LOC: WOUND 08:05 | PROVIDERS: PCP Family Medicine; Visit Provider Nurse Practitioner Family | DX: I96 Gangrene, not elsewhere classified (principal); L89.892 Pressure ulcer of other site, stage 2; I87.2 Venous insufficiency (chronic) (peripheral); L97.822 Non-pressure chronic ulcer of other part of left lower leg with fat layer exposed; E11.622 Type 2 diabetes mellitus with other skin ulcer; L97.812 Non-pressure chronic ulcer of other part of right lower leg with fat layer exposed | CPT/HCPCS: 11042; 11045; 87070; 87077; 87176; 87186; 87205 ==

== ENCOUNTER 2020-12-16 08:07 | Outpatient (CLI) | payer MEDICARE, MEDICAID, SELFPAY | END 2020-12-16 08:08 | disposition home or self-care (01) | LOC: WOUND 08:08 | PROVIDERS: PCP Family Medicine; Visit Provider Nurse Practitioner Family | DX: E11.622 Type 2 diabetes mellitus with other skin ulcer (principal); L97.812 Non-pressure chronic ulcer of other part of right lower leg with fat layer exposed | CPT/HCPCS: 11042; A6545 ==

== ENCOUNTER 2020-12-23 08:37 | Outpatient (CLI) | payer MEDICARE, MEDICAID, SELFPAY | END 2020-12-23 08:38 | disposition home or self-care (01) | LOC: WOUND 08:38 | PROVIDERS: PCP Family Medicine; Visit Provider Nurse Practitioner Family | DX: L89.812 Pressure ulcer of head, stage 2 (principal); I87.2 Venous insufficiency (chronic) (peripheral); L97.822 Non-pressure chronic ulcer of other part of left lower leg with fat layer exposed; E11.622 Type 2 diabetes mellitus with other skin ulcer; L97.812 Non-pressure chronic ulcer of other part of right lower leg with fat layer exposed | CPT/HCPCS: 11042; 11045 ==

== ENCOUNTER 2020-12-30 09:34 | Outpatient (CLI) | payer MEDICARE, MEDICAID, SELFPAY | END 2020-12-30 09:35 | disposition home or self-care (01) | LOC: WOUND 09:39 | PROVIDERS: PCP Family Medicine; Visit Provider Nurse Practitioner Family | DX: L89.812 Pressure ulcer of head, stage 2 (principal); I87.2 Venous insufficiency (chronic) (peripheral); L97.822 Non-pressure chronic ulcer of other part of left lower leg with fat layer exposed; L97.812 Non-pressure chronic ulcer of other part of right lower leg with fat layer exposed | CPT/HCPCS: 11042 ==

== ENCOUNTER 2021-01-06 08:19 | Outpatient (CLI) | payer MEDICARE, MEDICAID, SELFPAY | END 2021-01-06 08:20 | disposition home or self-care (01) | LOC: WOUND 08:20 | PROVIDERS: PCP Family Medicine; Visit Provider Nurse Practitioner Family | DX: I87.2 Venous insufficiency (chronic) (peripheral) (principal); L97.822 Non-pressure chronic ulcer of other part of left lower leg with fat layer exposed; E11.622 Type 2 diabetes mellitus with other skin ulcer; L97.812 Non-pressure chronic ulcer of other part of right lower leg with fat layer exposed; L89.812 Pressure ulcer of head, stage 2 | CPT/HCPCS: 11042; 11045 ==

== ENCOUNTER 2021-01-13 08:26 | Outpatient (CLI) | payer MEDICARE, MEDICAID, SELFPAY | END 2021-01-13 08:27 | disposition home or self-care (01) | LOC: WOUND 08:28 | PROVIDERS: PCP Family Medicine; Visit Provider Nurse Practitioner Family | DX: I87.2 Venous insufficiency (chronic) (peripheral) (principal); L97.822 Non-pressure chronic ulcer of other part of left lower leg with fat layer exposed; L97.812 Non-pressure chronic ulcer of other part of right lower leg with fat layer exposed; L89.812 Pressure ulcer of head, stage 2 | CPT/HCPCS: 11042 ==

== ENCOUNTER 2021-01-20 08:35 | Outpatient (CLI) | payer MEDICARE, MEDICAID, SELFPAY | END 2021-01-20 08:36 | disposition home or self-care (01) | LOC: WOUND 08:40 | PROVIDERS: PCP Family Medicine; Visit Provider Nurse Practitioner Family | DX: I96 Gangrene, not elsewhere classified (principal); L89.812 Pressure ulcer of head, stage 2; I87.2 Venous insufficiency (chronic) (peripheral); L97.822 Non-pressure chronic ulcer of other part of left lower leg with fat layer exposed; L97.812 Non-pressure chronic ulcer of other part of right lower leg with fat layer exposed | CPT/HCPCS: 11042 ==

== ENCOUNTER 2021-01-27 08:13 | Outpatient (CLI) | payer MEDICARE, MEDICAID, SELFPAY | END 2021-01-27 08:14 | disposition home or self-care (01) | LOC: WOUND 08:17 | PROVIDERS: PCP Family Medicine; Visit Provider Nurse Practitioner Family | DX: E11.622 Type 2 diabetes mellitus with other skin ulcer (principal); L97.812 Non-pressure chronic ulcer of other part of right lower leg with fat layer exposed; L97.822 Non-pressure chronic ulcer of other part of left lower leg with fat layer exposed; I96 Gangrene, not elsewhere classified; L89.812 Pressure ulcer of head, stage 2; Z87.891 Personal history of nicotine dependence | CPT/HCPCS: 11042 ==

== ENCOUNTER 2021-02-10 08:11 | Outpatient (CLI) | payer MEDICARE, MEDICAID, SELFPAY | END 2021-02-10 08:12 | disposition home or self-care (01) | LOC: WOUND 08:13 | PROVIDERS: PCP Family Medicine; Visit Provider Nurse Practitioner Family | DX: I87.2 Venous insufficiency (chronic) (peripheral) (principal); L97.822 Non-pressure chronic ulcer of other part of left lower leg with fat layer exposed; L89.812 Pressure ulcer of head, stage 2 | CPT/HCPCS: 97597 ==

== ENCOUNTER 2021-02-17 09:13 | Outpatient (CLI) | payer MEDICARE, MEDICAID, SELFPAY | END 2021-02-17 09:14 | disposition home or self-care (01) | LOC: WOUND 09:16 | PROVIDERS: PCP Family Medicine; Visit Provider Nurse Practitioner Family | DX: L89.812 Pressure ulcer of head, stage 2 (principal); I87.2 Venous insufficiency (chronic) (peripheral); L97.822 Non-pressure chronic ulcer of other part of left lower leg with fat layer exposed | CPT/HCPCS: 11042 ==

== ENCOUNTER 2021-02-24 08:53 | Outpatient (CLI) | payer MEDICARE, MEDICAID, SELFPAY | END 2021-02-24 08:54 | disposition home or self-care (01) | LOC: WOUND 08:56 | PROVIDERS: PCP Family Medicine; Visit Provider Nurse Practitioner Family | DX: I87.2 Venous insufficiency (chronic) (peripheral) (principal); L97.822 Non-pressure chronic ulcer of other part of left lower leg with fat layer exposed; L89.812 Pressure ulcer of head, stage 2 | CPT/HCPCS: 11042 ==

== ENCOUNTER 2021-03-03 07:50 | Outpatient (CLI) | payer MEDICARE, MEDICAID, SELFPAY | END 2021-03-03 07:51 | disposition home or self-care (01) | LOC: WOUND 07:52 | PROVIDERS: PCP Family Medicine; Visit Provider Nurse Practitioner Family | DX: I87.2 Venous insufficiency (chronic) (peripheral) (principal); L97.822 Non-pressure chronic ulcer of other part of left lower leg with fat layer exposed; L89.812 Pressure ulcer of head, stage 2 | CPT/HCPCS: 11042 ==

== ENCOUNTER 2021-03-10 08:34 | Outpatient (CLI) | payer MEDICARE, MEDICAID, SELFPAY | END 2021-03-10 08:35 | disposition home or self-care (01) | LOC: WOUND 08:37 | PROVIDERS: PCP Family Medicine; Visit Provider Nurse Practitioner Family | DX: I87.2 Venous insufficiency (chronic) (peripheral) (principal); L97.822 Non-pressure chronic ulcer of other part of left lower leg with fat layer exposed; L89.812 Pressure ulcer of head, stage 2 | CPT/HCPCS: 11042 ==

== ENCOUNTER 2021-03-17 08:57 | Outpatient (CLI) | payer MEDICARE, MEDICAID, SELFPAY | END 2021-03-17 08:58 | disposition home or self-care (01) | LOC: WOUND 08:58 | PROVIDERS: PCP Family Medicine; Visit Provider Nurse Practitioner Family | DX: L89.812 Pressure ulcer of head, stage 2 (principal); I87.2 Venous insufficiency (chronic) (peripheral); L97.822 Non-pressure chronic ulcer of other part of left lower leg with fat layer exposed | CPT/HCPCS: 11042 ==

== ENCOUNTER 2021-03-31 08:09 | Outpatient (CLI) | payer MEDICARE, MEDICAID, SELFPAY | END 2021-03-31 08:10 | disposition home or self-care (01) | LOC: WOUND 08:09 | PROVIDERS: PCP Family Medicine; Visit Provider Nurse Practitioner Family | DX: L89.812 Pressure ulcer of head, stage 2 (principal); I87.2 Venous insufficiency (chronic) (peripheral); L97.822 Non-pressure chronic ulcer of other part of left lower leg with fat layer exposed | CPT/HCPCS: 11042 ==

== ENCOUNTER 2021-04-07 08:41 | Outpatient (CLI) | payer MEDICARE, MEDICAID, SELFPAY | END 2021-04-07 08:42 | disposition home or self-care (01) | LOC: WOUND 08:42 | PROVIDERS: PCP Family Medicine; Visit Provider Nurse Practitioner Family | DX: L89.812 Pressure ulcer of head, stage 2 (principal); I87.2 Venous insufficiency (chronic) (peripheral); L97.822 Non-pressure chronic ulcer of other part of left lower leg with fat layer exposed | CPT/HCPCS: 11042 ==

== ENCOUNTER 2021-04-11 08:40 | Outpatient (CLI) | payer MEDICARE, MEDICAID, SELFPAY | END 2021-04-11 08:41 | disposition home or self-care (01) | LOC: WOUND 08:41 | PROVIDERS: PCP Family Medicine; Visit Provider Nurse Practitioner Family | DX: I87.2 Venous insufficiency (chronic) (peripheral) (principal); L97.822 Non-pressure chronic ulcer of other part of left lower leg with fat layer exposed; L89.812 Pressure ulcer of head, stage 2 | CPT/HCPCS: 11042 ==

== ENCOUNTER 2021-04-18 08:52 | Outpatient (CLI) | payer MEDICARE, MEDICAID, SELFPAY | END 2021-04-18 08:53 | disposition home or self-care (01) | LOC: WOUND 08:53 | PROVIDERS: PCP Family Medicine; Visit Provider Nurse Practitioner Family | DX: I87.2 Venous insufficiency (chronic) (peripheral) (principal); L97.822 Non-pressure chronic ulcer of other part of left lower leg with fat layer exposed; L89.892 Pressure ulcer of other site, stage 2 | CPT/HCPCS: 11042 ==

== ENCOUNTER 2021-04-25 08:52 | Outpatient (CLI) | payer MEDICARE, MEDICAID, SELFPAY | END 2021-04-25 08:53 | disposition home or self-care (01) | LOC: WOUND 08:54 | PROVIDERS: PCP Family Medicine; Visit Provider Nurse Practitioner Family | DX: I87.2 Venous insufficiency (chronic) (peripheral) (principal); L97.822 Non-pressure chronic ulcer of other part of left lower leg with fat layer exposed; L89.812 Pressure ulcer of head, stage 2 | CPT/HCPCS: 11042 ==

== ENCOUNTER 2021-05-02 10:01 | Outpatient (CLI) | payer MEDICARE, MEDICAID, SELFPAY | END 2021-05-02 10:02 | disposition home or self-care (01) | LOC: WOUND 10:05 | PROVIDERS: PCP Family Medicine; Visit Provider Nurse Practitioner Family | DX: E11.622 Type 2 diabetes mellitus with other skin ulcer (principal); L97.822 Non-pressure chronic ulcer of other part of left lower leg with fat layer exposed; L89.812 Pressure ulcer of head, stage 2 | CPT/HCPCS: 11042 ==

== ENCOUNTER 2021-05-23 08:45 | Outpatient (CLI) | payer MEDICARE, MEDICAID, SELFPAY | END 2021-05-23 08:46 | disposition home or self-care (01) | LOC: WOUND 08:46 | PROVIDERS: PCP Family Medicine; Visit Provider Nurse Practitioner Family | DX: E11.622 Type 2 diabetes mellitus with other skin ulcer (principal); L97.821 Non-pressure chronic ulcer of other part of left lower leg limited to breakdown of skin; L89.812 Pressure ulcer of head, stage 2 | CPT/HCPCS: 87070; 87075; 87077; 87186; 87205; G0463 ==

== ENCOUNTER 2021-05-30 09:12 | Outpatient (CLI) | payer MEDICARE, MEDICAID, SELFPAY | END 2021-05-30 09:13 | disposition home or self-care (01) | LOC: WOUND 09:13 | PROVIDERS: PCP Family Medicine; Visit Provider Nurse Practitioner Family | DX: L89.812 Pressure ulcer of head, stage 2 (principal); E11.622 Type 2 diabetes mellitus with other skin ulcer; L97.822 Non-pressure chronic ulcer of other part of left lower leg with fat layer exposed | CPT/HCPCS: 11042 ==

== ENCOUNTER 2021-06-13 08:50 | Outpatient (CLI) | payer MEDICARE, MEDICAID, SELFPAY | END 2021-06-13 08:51 | disposition home or self-care (01) | LOC: WOUND 08:51 | PROVIDERS: PCP Family Medicine; Visit Provider Emergency Medicine | DX: E11.622 Type 2 diabetes mellitus with other skin ulcer (principal); L97.822 Non-pressure chronic ulcer of other part of left lower leg with fat layer exposed; E11.621 Type 2 diabetes mellitus with foot ulcer; L97.512 Non-pressure chronic ulcer of other part of right foot with fat layer exposed; L89.812 Pressure ulcer of head, stage 2; Z87.891 Personal history of nicotine dependence | CPT/HCPCS: 11042; 87070; 87077; 87176; 87186; 87205; 99212 ==

== ENCOUNTER 2021-06-20 09:34 | Outpatient (CLI) | payer MEDICARE, MEDICAID, SELFPAY | END 2021-06-20 09:35 | disposition home or self-care (01) | LOC: WOUND 09:35 | PROVIDERS: PCP Family Medicine; Visit Provider Emergency Medicine | DX: I96 Gangrene, not elsewhere classified (principal); L89.812 Pressure ulcer of head, stage 2; E11.622 Type 2 diabetes mellitus with other skin ulcer; L97.822 Non-pressure chronic ulcer of other part of left lower leg with fat layer exposed | CPT/HCPCS: 11042 ==

== ENCOUNTER 2021-06-27 09:22 | Outpatient (CLI) | payer MEDICARE, MEDICAID, SELFPAY | END 2021-06-27 09:23 | disposition home or self-care (01) | LOC: WOUND 09:26 | PROVIDERS: PCP Family Medicine; Visit Provider Emergency Medicine | DX: I96 Gangrene, not elsewhere classified (principal); L89.812 Pressure ulcer of head, stage 2; E11.622 Type 2 diabetes mellitus with other skin ulcer; L97.822 Non-pressure chronic ulcer of other part of left lower leg with fat layer exposed; Z87.891 Personal history of nicotine dependence | CPT/HCPCS: 11042 ==

== ENCOUNTER 2021-07-04 09:09 | Outpatient (CLI) | payer MEDICARE, MEDICAID, SELFPAY | END 2021-07-04 09:10 | disposition home or self-care (01) | LOC: WOUND 09:10 | PROVIDERS: PCP Family Medicine; Visit Provider Emergency Medicine | DX: L89.812 Pressure ulcer of head, stage 2 (principal); E11.622 Type 2 diabetes mellitus with other skin ulcer; L97.822 Non-pressure chronic ulcer of other part of left lower leg with fat layer exposed; Z87.891 Personal history of nicotine dependence | CPT/HCPCS: 11042 ==

== ENCOUNTER 2021-07-18 09:11 | Outpatient (CLI) | payer MEDICARE, MEDICAID, SELFPAY | END 2021-07-18 09:12 | disposition home or self-care (01) | LOC: WOUND 09:12 | PROVIDERS: PCP Family Medicine; Visit Provider Emergency Medicine | DX: L89.812 Pressure ulcer of head, stage 2 (principal); E11.622 Type 2 diabetes mellitus with other skin ulcer; L97.822 Non-pressure chronic ulcer of other part of left lower leg with fat layer exposed; Z87.891 Personal history of nicotine dependence | CPT/HCPCS: 11042; 87070; 87077; 87176; 87186; 87205; 99212 ==

== ENCOUNTER 2021-07-25 09:06 | Outpatient (CLI) | payer MEDICARE, MEDICAID, SELFPAY | END 2021-07-25 09:07 | disposition home or self-care (01) | LOC: WOUND 09:07 | PROVIDERS: PCP Family Medicine; Visit Provider Emergency Medicine | DX: L89.812 Pressure ulcer of head, stage 2 (principal); Z87.891 Personal history of nicotine dependence | CPT/HCPCS: 11042; 11045 ==

== ENCOUNTER 2021-08-01 08:42 | Outpatient (CLI) | payer MEDICARE, MEDICAID, SELFPAY | END 2021-08-01 08:43 | disposition home or self-care (01) | LOC: WOUND 08:43 | PROVIDERS: PCP Family Medicine; Visit Provider Emergency Medicine | DX: L89.812 Pressure ulcer of head, stage 2 (principal); Z87.891 Personal history of nicotine dependence | CPT/HCPCS: 11042; 99212 ==

== ENCOUNTER 2021-08-08 08:42 | Outpatient (CLI) | payer MEDICARE, MEDICAID, SELFPAY | END 2021-08-08 08:43 | disposition home or self-care (01) | LOC: WOUND 08:42 | PROVIDERS: PCP Family Medicine; Visit Provider Emergency Medicine | DX: L89.812 Pressure ulcer of head, stage 2 (principal); Z87.891 Personal history of nicotine dependence | CPT/HCPCS: 11042 ==

== ENCOUNTER 2021-08-15 08:38 | Outpatient (CLI) | payer MEDICARE, MEDICAID, SELFPAY | END 2021-08-15 08:39 | disposition home or self-care (01) | LOC: WOUND 08:43 | PROVIDERS: PCP Family Medicine; Visit Provider Emergency Medicine | DX: L89.812 Pressure ulcer of head, stage 2 (principal); E11.9 Type 2 diabetes mellitus without complications; Z87.891 Personal history of nicotine dependence | CPT/HCPCS: 11042 ==

== ENCOUNTER 2021-08-22 09:04 | Outpatient (CLI) | payer MEDICARE, MEDICAID, SELFPAY | END 2021-08-22 09:05 | disposition home or self-care (01) | LOC: WOUND 09:07 | PROVIDERS: PCP Family Medicine; Visit Provider Emergency Medicine | DX: L89.812 Pressure ulcer of head, stage 2 (principal); Z87.891 Personal history of nicotine dependence | CPT/HCPCS: 11042 ==

== ENCOUNTER 2021-08-29 08:53 | Outpatient (CLI) | payer MEDICARE, MEDICAID, SELFPAY | END 2021-08-29 08:54 | disposition home or self-care (01) | LOC: WOUND 08:54 | PROVIDERS: PCP Family Medicine; Visit Provider Nurse Practitioner Family | DX: L89.812 Pressure ulcer of head, stage 2 (principal); Z87.891 Personal history of nicotine dependence | CPT/HCPCS: 11042 ==

== ENCOUNTER 2021-09-05 08:17 | Outpatient (CLI) | payer MEDICARE, MEDICAID, SELFPAY | END 2021-09-05 08:18 | disposition home or self-care (01) | LOC: WOUND 08:18 | PROVIDERS: PCP Family Medicine; Visit Provider Emergency Medicine | DX: L89.812 Pressure ulcer of head, stage 2 (principal); E11.9 Type 2 diabetes mellitus without complications; Z87.891 Personal history of nicotine dependence | CPT/HCPCS: 97597 ==

== ENCOUNTER 2021-09-12 08:10 | Outpatient (CLI) | payer MEDICARE, MEDICAID, SELFPAY | END 2021-09-12 08:11 | disposition home or self-care (01) | LOC: WOUND 08:12 | PROVIDERS: PCP Family Medicine; Visit Provider Nurse Practitioner Family | DX: L89.812 Pressure ulcer of head, stage 2 (principal); Z87.891 Personal history of nicotine dependence | CPT/HCPCS: 11042 ==

== ENCOUNTER 2021-09-19 08:34 | Outpatient (CLI) | payer MEDICARE, MEDICAID, SELFPAY | END 2021-09-19 08:35 | disposition home or self-care (01) | LOC: WOUND 08:36 | PROVIDERS: PCP Family Medicine; Visit Provider Emergency Medicine | DX: L89.812 Pressure ulcer of head, stage 2 (principal); E11.9 Type 2 diabetes mellitus without complications; I87.2 Venous insufficiency (chronic) (peripheral); Z87.891 Personal history of nicotine dependence | CPT/HCPCS: 11042 ==

== ENCOUNTER 2021-09-26 08:51 | Outpatient (CLI) | payer MEDICARE, MEDICAID, SELFPAY | END 2021-09-26 08:52 | disposition home or self-care (01) | PROVIDERS: PCP Family Medicine; Visit Provider Emergency Medicine | DX: L89.812 Pressure ulcer of head, stage 2; Z87.891 Personal history of nicotine dependence; E11.9 Type 2 diabetes mellitus without complications; I87.2 Venous insufficiency (chronic) (peripheral) | CPT/HCPCS: 11042; 90686 ==

== ENCOUNTER 2021-10-17 08:14 | Outpatient (CLI) | payer MEDICARE, MEDICAID, SELFPAY | END 2021-10-17 08:15 | disposition home or self-care (01) | LOC: WOUND 08:15 | PROVIDERS: PCP Family Medicine; Visit Provider Emergency Medicine | DX: L89.812 Pressure ulcer of head, stage 2 (principal); E11.9 Type 2 diabetes mellitus without complications; Z87.891 Personal history of nicotine dependence | CPT/HCPCS: 11042; 11045; 87070; 87176; 87205; 99212 ==

== ENCOUNTER 2021-10-24 08:24 | Outpatient (CLI) | payer MEDICARE, MEDICAID, SELFPAY | END 2021-10-24 08:25 | disposition home or self-care (01) | LOC: WOUND 08:25 | PROVIDERS: PCP Family Medicine; Visit Provider Nurse Practitioner Family | DX: L89.812 Pressure ulcer of head, stage 2 (principal); Z87.891 Personal history of nicotine dependence | CPT/HCPCS: 11042; 11045 ==

== ENCOUNTER 2021-10-31 08:03 | Outpatient (CLI) | payer MEDICARE, MEDICAID, SELFPAY | END 2021-10-31 08:04 | disposition home or self-care (01) | LOC: WOUND 08:03 | PROVIDERS: PCP Family Medicine; Visit Provider Nurse Practitioner Family | DX: L89.812 Pressure ulcer of head, stage 2 (principal); E11.9 Type 2 diabetes mellitus without complications; I87.2 Venous insufficiency (chronic) (peripheral); Z87.891 Personal history of nicotine dependence | CPT/HCPCS: 11042; 11045 ==

== ENCOUNTER 2021-11-02 08:26 | Outpatient (CLI) | payer MEDICARE, MEDICAID, SELFPAY ==
--- NOTE | 2021-11-02 09:45 | XR_ITS ---
WS: [id number] KUB, AP view, 11/02/2021 Clinical Data: NEPHROLITHIASIS Comparison: KUB, 09/14/2020. Findings: No abnormal intraabdominal masses are seen. There is no dilatated small bowel or evidence of obstruct ion. There is a 1.2 cm calculus overlying the lower pole of the left kidney. There is ankylosing spondylit is of the SI joints and lumbar spine. There is a large amount of fecal material throughout the colon. XR/XR KUB [id number] Impression: Left lower pole renal calculus.
== END 2021-11-02 08:27 | disposition home or self-care (01) ==
PROVIDERS: Visit Provider Urology
DX: N20.0 Calculus of kidney (principal)
CPT/HCPCS: 74018

== ENCOUNTER 2021-11-08 08:04 | Outpatient (CLI) | payer MEDICARE, MEDICAID, SELFPAY | END 2021-11-08 08:05 | disposition home or self-care (01) | LOC: WOUND 08:05 | PROVIDERS: Visit Provider Nurse Practitioner Family | DX: L89.812 Pressure ulcer of head, stage 2 (principal); I87.2 Venous insufficiency (chronic) (peripheral); E11.9 Type 2 diabetes mellitus without complications; Z87.891 Personal history of nicotine dependence | CPT/HCPCS: 11042; 11045 ==

== ENCOUNTER 2021-11-15 08:03 | Outpatient (CLI) | payer MEDICARE, MEDICAID, SELFPAY | END 2021-11-15 08:04 | disposition home or self-care (01) | LOC: WOUND 08:04 | PROVIDERS: Visit Provider Emergency Medicine | DX: I96 Gangrene, not elsewhere classified (principal); L89.812 Pressure ulcer of head, stage 2; E11.9 Type 2 diabetes mellitus without complications; Z87.891 Personal history of nicotine dependence | CPT/HCPCS: 11042; 11045 ==

== ENCOUNTER 2021-11-22 09:38 | Outpatient (CLI) | payer MEDICARE, MEDICAID, SELFPAY | END 2021-11-22 09:39 | disposition home or self-care (01) | LOC: WOUND 09:46 | PROVIDERS: Visit Provider Emergency Medicine | DX: I96 Gangrene, not elsewhere classified (principal); L89.812 Pressure ulcer of head, stage 2; E11.9 Type 2 diabetes mellitus without complications; Z87.891 Personal history of nicotine dependence | CPT/HCPCS: 11042; 11045 ==

== ENCOUNTER 2021-11-29 08:06 | Outpatient (CLI) | payer MEDICARE, MEDICAID, SELFPAY | END 2021-11-29 08:07 | disposition home or self-care (01) | LOC: WOUND 08:07 | PROVIDERS: Visit Provider Emergency Medicine | DX: I96 Gangrene, not elsewhere classified (principal); L89.812 Pressure ulcer of head, stage 2; E11.9 Type 2 diabetes mellitus without complications; Z87.891 Personal history of nicotine dependence | CPT/HCPCS: 11042; 11045; 87070; 87176; 87205; 99212; A6220 ==

== ENCOUNTER 2021-12-06 08:21 | Outpatient (CLI) | payer MEDICARE, MEDICAID, SELFPAY | END 2021-12-06 08:22 | disposition home or self-care (01) | LOC: WOUND 08:23 | PROVIDERS: Visit Provider Emergency Medicine | DX: E11.622 Type 2 diabetes mellitus with other skin ulcer (principal); L89.812 Pressure ulcer of head, stage 2; I87.2 Venous insufficiency (chronic) (peripheral) | CPT/HCPCS: 11042; 11045 ==

== ENCOUNTER 2021-12-13 08:18 | Outpatient (CLI) | payer MEDICARE, MEDICAID, SELFPAY | END 2021-12-13 08:19 | disposition home or self-care (01) | LOC: WOUND 08:19 | PROVIDERS: Visit Provider Emergency Medicine | DX: I96 Gangrene, not elsewhere classified (principal); L89.812 Pressure ulcer of head, stage 2; I87.2 Venous insufficiency (chronic) (peripheral); E11.9 Type 2 diabetes mellitus without complications; Z87.891 Personal history of nicotine dependence | CPT/HCPCS: 11042; 11045 ==

== ENCOUNTER 2021-12-20 07:53 | Outpatient (CLI) | payer MEDICARE, MEDICAID, SELFPAY | END 2021-12-20 07:54 | disposition home or self-care (01) | LOC: WOUND 07:56 | PROVIDERS: Visit Provider Emergency Medicine | DX: I96 Gangrene, not elsewhere classified (principal); L89.812 Pressure ulcer of head, stage 2; I87.2 Venous insufficiency (chronic) (peripheral); Z87.891 Personal history of nicotine dependence | CPT/HCPCS: 97597; 97598 ==

== ENCOUNTER 2021-12-27 08:09 | Outpatient (CLI) | payer MEDICARE, MEDICAID, SELFPAY | END 2021-12-27 08:10 | disposition home or self-care (01) | LOC: WOUND 08:11 | PROVIDERS: Visit Provider Emergency Medicine | DX: I96 Gangrene, not elsewhere classified (principal); L89.812 Pressure ulcer of head, stage 2; E11.9 Type 2 diabetes mellitus without complications; Z87.891 Personal history of nicotine dependence | CPT/HCPCS: 11042 ==

== ENCOUNTER 2022-01-03 08:28 | Outpatient (CLI) | payer MEDICARE, MEDICAID, SELFPAY | END 2022-01-03 08:29 | disposition home or self-care (01) | LOC: WOUND 08:30 | PROVIDERS: Visit Provider Thoracic Surgery (Cardiothoracic Vascular Surgery) | DX: I96 Gangrene, not elsewhere classified (principal); L89.812 Pressure ulcer of head, stage 2; Z87.891 Personal history of nicotine dependence; I87.2 Venous insufficiency (chronic) (peripheral) | CPT/HCPCS: 88304; 88305; A6220 ==

== ENCOUNTER 2022-01-10 08:09 | Outpatient (CLI) | payer MEDICARE, MEDICAID, SELFPAY | END 2022-01-10 08:10 | disposition home or self-care (01) | LOC: WOUND 08:10 | PROVIDERS: Visit Provider Emergency Medicine | DX: L89.812 Pressure ulcer of head, stage 2 (principal); E11.622 Type 2 diabetes mellitus with other skin ulcer; Z87.891 Personal history of nicotine dependence | CPT/HCPCS: 11042; 11045; 99212 ==

== ENCOUNTER 2022-01-17 08:15 | Outpatient (CLI) | payer MEDICARE, MEDICAID, SELFPAY | END 2022-01-17 08:16 | disposition home or self-care (01) | LOC: WOUND 11:36 | PROVIDERS: Visit Provider Emergency Medicine | DX: E11.622 Type 2 diabetes mellitus with other skin ulcer (principal); L89.812 Pressure ulcer of head, stage 2 | CPT/HCPCS: 97597; 97598; 11042; 11045 ==

== ENCOUNTER → 2022-01-24 08:32 | Outpatient (BNVA) | payer MEDICARE, MEDICAID, SELFPAY | PROVIDERS: Visit Provider Nurse Practitioner Family | DX: I96 Gangrene, not elsewhere classified (principal); L89.812 Pressure ulcer of head, stage 2; Z87.891 Personal history of nicotine dependence | CPT/HCPCS: 11042; 11045 ==

== ENCOUNTER → 2022-01-31 08:12 | Outpatient (BNVA) | payer MEDICARE, MEDICAID, SELFPAY | PROVIDERS: Visit Provider Emergency Medicine | DX: I96 Gangrene, not elsewhere classified (principal); L89.812 Pressure ulcer of head, stage 2; Z87.891 Personal history of nicotine dependence | CPT/HCPCS: 11042; 11045 ==

== ENCOUNTER → 2022-02-07 08:13 | Outpatient (BNVA) | payer MEDICARE, MEDICAID, SELFPAY | PROVIDERS: Visit Provider Emergency Medicine | DX: I96 Gangrene, not elsewhere classified (principal); L89.812 Pressure ulcer of head, stage 2 | CPT/HCPCS: 11042 ==

== ENCOUNTER → 2022-02-14 08:09 | Outpatient (BNVA) | payer MEDICARE, MEDICAID, SELFPAY | PROVIDERS: Visit Provider Emergency Medicine | DX: I96 Gangrene, not elsewhere classified (principal); L89.812 Pressure ulcer of head, stage 2; Z87.891 Personal history of nicotine dependence | CPT/HCPCS: 11042 ==

== ENCOUNTER → 2022-02-21 08:00 | Outpatient (BNVA) | payer MEDICARE, MEDICAID, SELFPAY | PROVIDERS: Visit Provider Emergency Medicine | DX: I96 Gangrene, not elsewhere classified (principal); L89.812 Pressure ulcer of head, stage 2; Z87.891 Personal history of nicotine dependence | CPT/HCPCS: 15275; 15276; A6220; Q4186 ==

== ENCOUNTER → 2022-02-28 08:04 | Outpatient (BNVA) | payer MEDICARE, MEDICAID, SELFPAY | PROVIDERS: Visit Provider Emergency Medicine | DX: L89.812 Pressure ulcer of head, stage 2 (principal); Z87.891 Personal history of nicotine dependence; I96 Gangrene, not elsewhere classified | CPT/HCPCS: 15275; 15276; A6206; A6220; Q4186 ==

== ENCOUNTER → 2022-03-07 07:56 | Outpatient (BNVA) | payer MEDICARE, MEDICAID, SELFPAY | PROVIDERS: Visit Provider Emergency Medicine | DX: Z87.891 Personal history of nicotine dependence; I96 Gangrene, not elsewhere classified; L89.812 Pressure ulcer of head, stage 2 | CPT/HCPCS: 15275; 15276; A6206; A6220; Q4186 ==

== ENCOUNTER → 2022-03-14 07:50 | Outpatient (BNVA) | payer MEDICARE, MEDICAID, SELFPAY | PROVIDERS: Visit Provider Emergency Medicine | DX: I96 Gangrene, not elsewhere classified (principal); L89.892 Pressure ulcer of other site, stage 2; Z87.891 Personal history of nicotine dependence | CPT/HCPCS: 15275; 15276; A6206; A6220; Q4186 ==

== ENCOUNTER → 2022-03-21 07:52 | Outpatient (BNVA) | payer MEDICARE, MEDICAID, SELFPAY | PROVIDERS: Visit Provider Emergency Medicine | DX: I96 Gangrene, not elsewhere classified (principal); L89.892 Pressure ulcer of other site, stage 2 | CPT/HCPCS: 15275; 15276; A6207; A6220; Q4186 ==

== ENCOUNTER → 2022-03-28 08:07 | Outpatient (BNVA) | payer MEDICARE, MEDICAID, SELFPAY | PROVIDERS: Visit Provider Emergency Medicine | DX: I96 Gangrene, not elsewhere classified (principal); L89.892 Pressure ulcer of other site, stage 2 | CPT/HCPCS: 11042; 11045; A6219 ==

== ENCOUNTER → 2022-04-04 07:50 | Outpatient (BNVA) | payer MEDICARE, MEDICAID, SELFPAY | PROVIDERS: Visit Provider Nurse Practitioner Family | DX: I96 Gangrene, not elsewhere classified (principal); L89.892 Pressure ulcer of other site, stage 2 | CPT/HCPCS: 11042; 11045 ==

== ENCOUNTER → 2022-04-11 07:53 | Outpatient (BNVA) | payer MEDICARE, MEDICAID, SELFPAY | PROVIDERS: Visit Provider Nurse Practitioner Family | DX: I96 Gangrene, not elsewhere classified (principal); L89.892 Pressure ulcer of other site, stage 2 | CPT/HCPCS: 11042; 11045 ==

== ENCOUNTER → 2022-04-18 08:00 | Outpatient (BNVA) | payer MEDICARE, MEDICAID, SELFPAY | PROVIDERS: Visit Provider Nurse Practitioner Family | DX: I96 Gangrene, not elsewhere classified (principal); L89.892 Pressure ulcer of other site, stage 2 | CPT/HCPCS: 11042; 11045 ==

== ENCOUNTER → 2022-04-25 08:00 | Outpatient (BNVA) | payer MEDICARE, MEDICAID, SELFPAY | PROVIDERS: Visit Provider Nurse Practitioner Family | DX: I96 Gangrene, not elsewhere classified (principal); L89.892 Pressure ulcer of other site, stage 2 | CPT/HCPCS: 11042 ==

== ENCOUNTER → 2022-05-02 08:04 | Outpatient (BNVA) | payer MEDICARE, MEDICAID, SELFPAY | PROVIDERS: Visit Provider Nurse Practitioner Family | DX: I96 Gangrene, not elsewhere classified (principal); L89.892 Pressure ulcer of other site, stage 2 | CPT/HCPCS: 11042; A6210; A6219 ==

== ENCOUNTER → 2022-05-09 07:55 | Outpatient (BNVA) | payer MEDICARE, MEDICAID, SELFPAY | PROVIDERS: Visit Provider Emergency Medicine | DX: I96 Gangrene, not elsewhere classified (principal); L89.892 Pressure ulcer of other site, stage 2 | CPT/HCPCS: 11042; 11045; A6210 ==

== ENCOUNTER → 2022-05-16 08:08 | Outpatient (BNVA) | payer MEDICARE, MEDICAID, SELFPAY | PROVIDERS: Visit Provider Nurse Practitioner Family | DX: I96 Gangrene, not elsewhere classified (principal); L89.892 Pressure ulcer of other site, stage 2 | CPT/HCPCS: 11042; 11045 ==

== ENCOUNTER → 2022-05-23 08:03 | Outpatient (BNVA) | payer MEDICARE, MEDICAID, SELFPAY | PROVIDERS: Visit Provider Nurse Practitioner Family | DX: I96 Gangrene, not elsewhere classified (principal); L89.892 Pressure ulcer of other site, stage 2; E11.622 Type 2 diabetes mellitus with other skin ulcer; L97.821 Non-pressure chronic ulcer of other part of left lower leg limited to breakdown of skin | CPT/HCPCS: 11042; 11045; 87070 ==

== ENCOUNTER → 2022-05-30 08:00 | Outpatient (BNVA) | payer MEDICARE, MEDICAID, SELFPAY | PROVIDERS: Visit Provider Nurse Practitioner Family | DX: L89.892 Pressure ulcer of other site, stage 2 (principal); I96 Gangrene, not elsewhere classified; E11.622 Type 2 diabetes mellitus with other skin ulcer; L97.821 Non-pressure chronic ulcer of other part of left lower leg limited to breakdown of skin | CPT/HCPCS: 11042; 11045; A6210 ==

== ENCOUNTER → 2022-06-06 07:57 | Outpatient (BNVA) | payer MEDICARE, MEDICAID, SELFPAY | PROVIDERS: Visit Provider Nurse Practitioner Family | DX: I73.9 Peripheral vascular disease, unspecified (principal); L60.3 Nail dystrophy; E11.42 Type 2 diabetes mellitus with diabetic polyneuropathy; L89.892 Pressure ulcer of other site, stage 2 | CPT/HCPCS: 11721; 99204; 99213; A6212 ==

== ENCOUNTER → 2022-06-13 07:53 | Outpatient (BNVA) | payer MEDICARE, MEDICAID, SELFPAY | PROVIDERS: Visit Provider Nurse Practitioner Family | DX: I96 Gangrene, not elsewhere classified (principal); L89.892 Pressure ulcer of other site, stage 2 | CPT/HCPCS: 99212; A6219 ==

== ENCOUNTER → 2022-06-20 08:07 | Outpatient (BNVA) | payer MEDICARE, MEDICAID, SELFPAY | PROVIDERS: Visit Provider Nurse Practitioner Family | DX: L89.892 Pressure ulcer of other site, stage 2 (principal) | CPT/HCPCS: 99213 ==

== ENCOUNTER → 2022-06-27 08:06 | Outpatient (BNVA) | payer MEDICARE, MEDICAID, SELFPAY | PROVIDERS: Visit Provider Nurse Practitioner Family | DX: I96 Gangrene, not elsewhere classified (principal); L89.892 Pressure ulcer of other site, stage 2 | CPT/HCPCS: 99212 ==

== ENCOUNTER → 2022-07-04 07:55 | Outpatient (BNVA) | payer MEDICARE, MEDICAID, SELFPAY | PROVIDERS: Visit Provider Thoracic Surgery (Cardiothoracic Vascular Surgery) | DX: I96 Gangrene, not elsewhere classified (principal); L89.892 Pressure ulcer of other site, stage 2 | CPT/HCPCS: 97597; 97598 ==

== ENCOUNTER → 2022-07-25 07:58 | Outpatient (BNVA) | payer MEDICARE, MEDICAID, SELFPAY | PROVIDERS: Visit Provider Thoracic Surgery (Cardiothoracic Vascular Surgery) | DX: I96 Gangrene, not elsewhere classified (principal); L89.892 Pressure ulcer of other site, stage 2 | CPT/HCPCS: 97597; 97598 ==

== ENCOUNTER → 2022-08-01 07:56 | Outpatient (BNVA) | payer MEDICARE, MEDICAID, SELFPAY | PROVIDERS: Visit Provider Nurse Practitioner Family | DX: I96 Gangrene, not elsewhere classified (principal); L89.892 Pressure ulcer of other site, stage 2 | CPT/HCPCS: 99213 ==

== ENCOUNTER → 2022-08-08 07:53 | Outpatient (BNVA) | payer MEDICARE, MEDICAID, SELFPAY | PROVIDERS: Visit Provider Nurse Practitioner Family | DX: I96 Gangrene, not elsewhere classified (principal); L89.892 Pressure ulcer of other site, stage 2 | CPT/HCPCS: 99213; A6197 ==

== ENCOUNTER → 2022-08-15 07:43 | Outpatient (BNVA) | payer MEDICARE, MEDICAID, SELFPAY | PROVIDERS: Visit Provider Nurse Practitioner Family | DX: L89.892 Pressure ulcer of other site, stage 2 (principal); E11.9 Type 2 diabetes mellitus without complications; I73.9 Peripheral vascular disease, unspecified | CPT/HCPCS: 99212 ==

== ENCOUNTER → 2022-08-29 07:52 | Outpatient (BNVA) | payer MEDICARE, MEDICAID, SELFPAY | PROVIDERS: Visit Provider Nurse Practitioner Family | DX: I96 Gangrene, not elsewhere classified (principal); L89.892 Pressure ulcer of other site, stage 2 | CPT/HCPCS: 99213; A6206; A6220 ==

== ENCOUNTER → 2022-09-12 07:49 | Outpatient (BNVA) | payer MEDICARE, MEDICAID, SELFPAY | PROVIDERS: Visit Provider Nurse Practitioner Family | DX: I96 Gangrene, not elsewhere classified (principal); L89.892 Pressure ulcer of other site, stage 2 | CPT/HCPCS: 99213; A6219 ==

== ENCOUNTER → 2022-10-03 10:33 | Outpatient (BNVA) | payer MEDICARE, MEDICAID, SELFPAY | PROVIDERS: Visit Provider Podiatrist Foot & Ankle Surgery | DX: I73.9 Peripheral vascular disease, unspecified (principal); L60.3 Nail dystrophy; E11.42 Type 2 diabetes mellitus with diabetic polyneuropathy; I87.2 Venous insufficiency (chronic) (peripheral); I83.029 Varicose veins of left lower extremity with ulcer of unspecified site; L97.929 Non-pressure chronic ulcer of unspecified part of left lower leg with unspecified severity; L89.812 Pressure ulcer of head, stage 2 | CPT/HCPCS: 11042; 11045; 99214 ==

== ENCOUNTER → 2022-10-24 08:02 | Outpatient (BNVA) | payer MEDICARE, MEDICAID, SELFPAY | PROVIDERS: Visit Provider Thoracic Surgery (Cardiothoracic Vascular Surgery) | DX: I96 Gangrene, not elsewhere classified (principal); L89.892 Pressure ulcer of other site, stage 2 | CPT/HCPCS: 97597 ==

== ENCOUNTER → 2022-11-07 08:06 | Outpatient (BNVA) | payer MEDICARE, MEDICAID, SELFPAY | PROVIDERS: Visit Provider Thoracic Surgery (Cardiothoracic Vascular Surgery) | DX: L89.892 Pressure ulcer of other site, stage 2 (principal) | CPT/HCPCS: 97597; 97598 ==

== ENCOUNTER → 2022-11-15 13:07 | Outpatient (BNVA) | payer MEDICARE, MEDICAID, SELFPAY | PROVIDERS: Visit Provider Podiatrist Foot & Ankle Surgery | DX: I73.9 Peripheral vascular disease, unspecified (principal); E11.42 Type 2 diabetes mellitus with diabetic polyneuropathy; L60.3 Nail dystrophy; I87.2 Venous insufficiency (chronic) (peripheral); I83.029 Varicose veins of left lower extremity with ulcer of unspecified site | CPT/HCPCS: 99213 ==

== ENCOUNTER → 2022-11-27 08:34 | Outpatient (BNVA) | payer MEDICARE, MEDICAID, SELFPAY | PROVIDERS: Visit Provider Thoracic Surgery (Cardiothoracic Vascular Surgery) | DX: L89.892 Pressure ulcer of other site, stage 2 (principal) | CPT/HCPCS: 97597; A6219 ==

== ENCOUNTER → 2022-12-11 08:43 | Outpatient (BNVA) | payer MEDICARE, MEDICAID, SELFPAY | PROVIDERS: Visit Provider Thoracic Surgery (Cardiothoracic Vascular Surgery) | DX: L89.892 Pressure ulcer of other site, stage 2 (principal) | CPT/HCPCS: 97597; 97598; A6220 ==

== ENCOUNTER → 2022-12-25 09:10 | Outpatient (BNVA) | payer MEDICARE, MEDICAID, SELFPAY | PROVIDERS: Visit Provider Thoracic Surgery (Cardiothoracic Vascular Surgery) | DX: L89.892 Pressure ulcer of other site, stage 2 (principal) | CPT/HCPCS: 97597; 97598; A6219 ==

== ENCOUNTER → 2023-01-08 08:32 | Outpatient (BNVA) | payer MEDICARE, MEDICAID, SELFPAY | PROVIDERS: Visit Provider Thoracic Surgery (Cardiothoracic Vascular Surgery) | DX: L89.892 Pressure ulcer of other site, stage 2 (principal) | CPT/HCPCS: 97597; A6220 ==

== ENCOUNTER → 2023-01-22 08:45 | Outpatient (BNVA) | payer MEDICARE, MEDICAID, SELFPAY | PROVIDERS: Visit Provider Nurse Practitioner Family | DX: I96 Gangrene, not elsewhere classified (principal); L89.892 Pressure ulcer of other site, stage 2 | CPT/HCPCS: 97597; A6219 ==

== ENCOUNTER → 2023-02-01 08:01 | Outpatient (BNVA) | payer MEDICARE, MEDICAID, SELFPAY | PROVIDERS: Visit Provider Nurse Practitioner Family | DX: L89.892 Pressure ulcer of other site, stage 2 (principal) | CPT/HCPCS: 97597; 97598 ==

== ENCOUNTER → 2023-02-15 08:00 | Outpatient (BNVA) | payer MEDICARE, MEDICAID, SELFPAY | PROVIDERS: Visit Provider Nurse Practitioner Family | DX: L89.892 Pressure ulcer of other site, stage 2 (principal) | CPT/HCPCS: 97597; A6219; A6252 ==

== ENCOUNTER → 2023-02-22 08:11 | Outpatient (BNVA) | payer MEDICARE, MEDICAID, SELFPAY | PROVIDERS: Visit Provider Nurse Practitioner Family | DX: L89.892 Pressure ulcer of other site, stage 2 (principal) | CPT/HCPCS: 97597; A6219 ==

== ENCOUNTER → 2023-03-08 08:19 | Outpatient (BNVA) | payer MEDICARE, MEDICAID, SELFPAY | PROVIDERS: Visit Provider Nurse Practitioner Family | DX: L89.892 Pressure ulcer of other site, stage 2 (principal); Z09 Encounter for follow-up examination after completed treatment for conditions other than malignant neoplasm | CPT/HCPCS: 97597; A6220; A6252 ==

== ENCOUNTER → 2023-03-15 08:07 | Outpatient (BNVA) | payer MEDICARE, MEDICAID, SELFPAY | PROVIDERS: Visit Provider Nurse Practitioner Family | DX: E11.22 Type 2 diabetes mellitus with diabetic chronic kidney disease (principal); I96 Gangrene, not elsewhere classified; L98.491 Non-pressure chronic ulcer of skin of other sites limited to breakdown of skin | CPT/HCPCS: 97597; A6220 ==

== ENCOUNTER → 2023-03-22 08:21 | Outpatient (BNVA) | payer MEDICARE, MEDICAID, SELFPAY | PROVIDERS: Visit Provider Nurse Practitioner Family | DX: I96 Gangrene, not elsewhere classified (principal); L98.492 Non-pressure chronic ulcer of skin of other sites with fat layer exposed | CPT/HCPCS: 97597; A6219; A6220 ==

== ENCOUNTER → 2023-03-29 07:57 | Outpatient (BNVA) | payer MEDICARE, MEDICAID, SELFPAY | PROVIDERS: Visit Provider Nurse Practitioner Family | DX: I96 Gangrene, not elsewhere classified (principal); L98.492 Non-pressure chronic ulcer of skin of other sites with fat layer exposed | CPT/HCPCS: 97597; A6219 ==

== ENCOUNTER → 2023-04-05 07:38 | Outpatient (BNVA) | payer MEDICARE, MEDICAID, SELFPAY | PROVIDERS: Visit Provider Nurse Practitioner Family | DX: I96 Gangrene, not elsewhere classified (principal); L98.492 Non-pressure chronic ulcer of skin of other sites with fat layer exposed | CPT/HCPCS: 87102; 87206; 97597; A6220 ==

== ENCOUNTER → 2023-04-12 08:21 | Outpatient (BNVA) | payer MEDICARE, MEDICAID, SELFPAY | PROVIDERS: Visit Provider Nurse Practitioner Family | DX: I96 Gangrene, not elsewhere classified (principal); L98.492 Non-pressure chronic ulcer of skin of other sites with fat layer exposed; Z09 Encounter for follow-up examination after completed treatment for conditions other than malignant neoplasm | CPT/HCPCS: 97597; A6219 ==

== ENCOUNTER → 2023-04-19 08:01 | Outpatient (BNVA) | payer MEDICARE, MEDICAID, SELFPAY | PROVIDERS: Visit Provider Nurse Practitioner Family | DX: E11.52 Type 2 diabetes mellitus with diabetic peripheral angiopathy with gangrene (principal); I73.9 Peripheral vascular disease, unspecified; L98.492 Non-pressure chronic ulcer of skin of other sites with fat layer exposed; L97.812 Non-pressure chronic ulcer of other part of right lower leg with fat layer exposed; L97.822 Non-pressure chronic ulcer of other part of left lower leg with fat layer exposed | CPT/HCPCS: 87070; 87077; 87186; 97597; 97598 ==

== ENCOUNTER → 2023-04-26 08:18 | Outpatient (BNVA) | payer MEDICARE, MEDICAID, SELFPAY | PROVIDERS: Visit Provider Nurse Practitioner Family | DX: E11.52 Type 2 diabetes mellitus with diabetic peripheral angiopathy with gangrene (principal); I73.9 Peripheral vascular disease, unspecified; L98.492 Non-pressure chronic ulcer of skin of other sites with fat layer exposed; L97.812 Non-pressure chronic ulcer of other part of right lower leg with fat layer exposed; L97.822 Non-pressure chronic ulcer of other part of left lower leg with fat layer exposed | CPT/HCPCS: 97597; 97598 ==

== ENCOUNTER → 2023-05-03 08:20 | Outpatient (BNVA) | payer MEDICARE, MEDICAID, SELFPAY | PROVIDERS: Visit Provider Nurse Practitioner Family | DX: L98.492 Non-pressure chronic ulcer of skin of other sites with fat layer exposed (principal); E11.52 Type 2 diabetes mellitus with diabetic peripheral angiopathy with gangrene; L97.812 Non-pressure chronic ulcer of other part of right lower leg with fat layer exposed; L97.822 Non-pressure chronic ulcer of other part of left lower leg with fat layer exposed; Z09 Encounter for follow-up examination after completed treatment for conditions other than malignant neoplasm | CPT/HCPCS: 97597; 97598 ==

== ENCOUNTER 2023-05-07 08:46 | Outpatient (CLI) | payer MEDICARE, MEDICAID, SELFPAY ==
--- NOTE | 2023-05-07 09:30 | USCV_ITS ---
Julian Menchaca Age: 67 Gender: M : 1955 Exam Date: 05/07/2023 09:38 Ordering Phys: Ruth Randolph NP Technologist: CT Exam Location: [facility] – [place]_ Indication: HISTORY: PROCEDURES: FINDINGS: The veins were found to be easily compressible with spontaneous blood flow. Non pulsatile flow pattern. No evidence of reflux was noted in the bilateral deep venous system. No venous reflux noted in the bilateral greater saphenous vein. No venous reflux noted in the bilateral small saphenous vein. CONCLUSIONS No evidence of DVT in the above-mentioned identifiable veins. No notable reflux was seen at this time, either in the superficial or in the deep veins. Dr Alexx Hobbs MD [facility] (Electronically Signed) Final Date: 07 May 2023 17:49 S
== END 2023-05-07 08:47 | disposition home or self-care (01) ==
LOC: RAD 08:51
PROVIDERS: PCP Nurse Practitioner Family; Visit Provider Nurse Practitioner Family
DX: S81.801A Unspecified open wound, right lower leg, initial encounter (principal); S81.802A Unspecified open wound, left lower leg, initial encounter; X58.XXXA Exposure to other specified factors, initial encounter
CPT/HCPCS: 93970

== ENCOUNTER → 2023-05-10 08:03 | Outpatient (BNVA) | payer MEDICARE, MEDICAID, SELFPAY | PROVIDERS: PCP Nurse Practitioner Family; Visit Provider Nurse Practitioner Family | DX: I96 Gangrene, not elsewhere classified (principal); L98.492 Non-pressure chronic ulcer of skin of other sites with fat layer exposed; L97.912 Non-pressure chronic ulcer of unspecified part of right lower leg with fat layer exposed; E11.52 Type 2 diabetes mellitus with diabetic peripheral angiopathy with gangrene; L97.922 Non-pressure chronic ulcer of unspecified part of left lower leg with fat layer exposed | CPT/HCPCS: 97597; 97598; A6219; A6220 ==

== ENCOUNTER 2023-05-14 09:47 | Outpatient (CLI) | payer MEDICARE, MEDICAID, SELFPAY ==
--- NOTE | 2023-05-14 10:15 | USCV_ITS ---
BernardaJulian Age: 67 Gender: M : 1955 Exam Date: 05/14/2023 10:09 Ordering Phys: Ruth Randolph NP Technologist: [place] [facility] [place]: bilat edema Risk Factors: Previous Vascular Surgery: RIGHT LEFT BP: 160.0 / 85.00 BP: 160.0/ 80.00 0 0 Waveform Velocity (cm/s) Velocity (cm/s) Waveform Triphasic 120.9 Iliac Prox 101.4 Triphasic Triphasic 106.5 Iliac Mid 94.8 Triphasic Triphasic 102.5 Iliac Distal 92.6 Triphasic Triphasic 102.5 SENIOR ATTORNEY 69.5 Triphasic Triphasic 85.4 SFA Prox 105.8 Triphasic Triphasic 132.8 SFA Mid 86.0 Triphasic Biphasic SFA Dist Triphasic 80.3 77.2 Triphasic 50.4 POP 75.0 Triphasic Triphasic 64.0 SCRAP COLLECTOR 102.5 Triphasic Biphasic 42.1 DPA 103.6 Biphasic 1.2 EPI 1.2 FINDINGS Resting EPI 1.2 on the right and 1.2 on the left Normal arterial Doppler velocities and Doppler waveforms CONCLUSIONS No evidence of any significant arterial obstruction, based on the above findings. Dr Alexx Hobbs MD [facility] (Electronically Signed) Final Date: 14 May 2023 19:32 S
== END 2023-05-14 09:48 | disposition home or self-care (01) ==
PROVIDERS: PCP Nurse Practitioner Family; Visit Provider Nurse Practitioner Family
DX: I73.9 Peripheral vascular disease, unspecified (principal)
CPT/HCPCS: 87070; 87077; 87186; 93925; 97597; 97598

== ENCOUNTER → 2023-05-24 07:51 | Outpatient (BNVA) | payer MEDICARE, MEDICAID, SELFPAY | PROVIDERS: PCP Nurse Practitioner Family; Visit Provider Nurse Practitioner Family | DX: I96 Gangrene, not elsewhere classified (principal); L98.492 Non-pressure chronic ulcer of skin of other sites with fat layer exposed; E11.622 Type 2 diabetes mellitus with other skin ulcer; L97.812 Non-pressure chronic ulcer of other part of right lower leg with fat layer exposed; Z09 Encounter for follow-up examination after completed treatment for conditions other than malignant neoplasm; I87.2 Venous insufficiency (chronic) (peripheral); L76.21 Postprocedural hemorrhage of skin and subcutaneous tissue following a dermatologic procedure | CPT/HCPCS: 97597; 97598; 99213; A6219 ==

== ENCOUNTER → 2023-09-21 09:14 | Outpatient (BNVA) | payer MEDICARE, MEDICAID, SELFPAY | PROVIDERS: PCP Nurse Practitioner Family; Visit Provider Podiatrist Foot & Ankle Surgery | DX: L60.3 Nail dystrophy (principal); E11.42 Type 2 diabetes mellitus with diabetic polyneuropathy; I87.2 Venous insufficiency (chronic) (peripheral); I73.9 Peripheral vascular disease, unspecified; Z79.84 Long term (current) use of oral hypoglycemic drugs | CPT/HCPCS: 11721 ==

== ENCOUNTER → 2023-12-27 13:55 | Outpatient (BNVA) | payer MEDICARE, MEDICAID, SELFPAY | PROVIDERS: PCP Family Medicine; Visit Provider Podiatrist Foot & Ankle Surgery | DX: L60.3 Nail dystrophy (principal); E11.42 Type 2 diabetes mellitus with diabetic polyneuropathy; I87.2 Venous insufficiency (chronic) (peripheral); I73.9 Peripheral vascular disease, unspecified; Z79.84 Long term (current) use of oral hypoglycemic drugs | CPT/HCPCS: 11721 ==

== ENCOUNTER → 2024-02-28 09:59 | Outpatient (BNVA) | payer MEDICARE, MEDICAID, SELFPAY | PROVIDERS: PCP Family Medicine; Visit Provider Podiatrist Foot & Ankle Surgery | DX: L60.3 Nail dystrophy (principal); E11.42 Type 2 diabetes mellitus with diabetic polyneuropathy; I87.2 Venous insufficiency (chronic) (peripheral); I73.9 Peripheral vascular disease, unspecified; E11.69 Type 2 diabetes mellitus with other specified complication; Z79.84 Long term (current) use of oral hypoglycemic drugs | CPT/HCPCS: 11721 ==

== ENCOUNTER → 2025-02-12 07:36 | Outpatient (BNVA) | payer MEDICARE, MEDICAID, SELFPAY | PROVIDERS: PCP Family Medicine; Visit Provider Podiatrist Foot & Ankle Surgery | DX: E11.42 Type 2 diabetes mellitus with diabetic polyneuropathy (principal); L60.3 Nail dystrophy; L84 Corns and callosities; I87.2 Venous insufficiency (chronic) (peripheral); I73.9 Peripheral vascular disease, unspecified; R60.9 Edema, unspecified; Z79.84 Long term (current) use of oral hypoglycemic drugs | CPT/HCPCS: 11055; 11721; 99213 ==

== ENCOUNTER → 2025-03-13 09:07 | Outpatient (BNVA) | payer OTHER, SELFPAY | PROVIDERS: PCP Family Medicine; Visit Provider Nurse Practitioner Family | DX: L57.8 Other skin changes due to chronic exposure to nonionizing radiation (principal); L81.4 Other melanin hyperpigmentation; X32.XXXA Exposure to sunlight, initial encounter; L30.9 Dermatitis, unspecified | CPT/HCPCS: 11102; 99213 ==

== ENCOUNTER → 2025-05-13 08:00 | Outpatient (BNVA) | payer OTHER, SELFPAY | PROVIDERS: PCP Family Medicine; Visit Provider Dermatology | DX: S01.00XA Unspecified open wound of scalp, initial encounter (principal); X58.XXXA Exposure to other specified factors, initial encounter | CPT/HCPCS: 99214 ==

== ENCOUNTER → 2025-06-16 10:08 | Outpatient (BNVA) | payer OTHER, SELFPAY | PROVIDERS: PCP Family Medicine; Visit Provider Dermatology | DX: S01.00XA Unspecified open wound of scalp, initial encounter (principal); X58.XXXA Exposure to other specified factors, initial encounter | CPT/HCPCS: 99214 ==